=== PATIENT | female | born 1960 | race Caucasian/White ===

== ENCOUNTER 2018-02-06 14:50 | Emergency (ER) | payer OTHER ==
--- NOTE | 2018-02-06 15:25 | EKG ---
Test Date: 2018-02-06 Test Time: 15:09:16 Information Resource Consultant: TIGRE MEASUREMENT RESULTS: Intervals: Rate: 70 MS: 140 QRSD: 84 QT: 380 QTc: 410 Dumas: P: 51 MS: 140 QRS: 56 T: 57 INTERPRETIVE STATEMENTS: Normal sinus rhythm Normal ECG Compared to ECG 01/07/2006 17:11:21 Sinus tachycardia no longer present Electronically Signed On 02-06-18 15:25:10 CDT by Howie Hodge
--- NOTE | 2018-02-06 15:27 | ER ---
Nurse's Notes [facility] Name: Shaista Awad Age: 57 yrs Sex: Female : 1960 Arrival Date: 02/06/2018 Time: 14:52 Bed Waiting Private MD: Eduardo Kapadia S Diagnosis: Presentation: 02/06 15:04 Presenting complaint: Patient states: Reports left side chest pressure for 5 days. aj Patient reports that pain improves with simethicone. Transition of care: patient was not received from another setting of care. Onset of symptoms was February 01, 2018. Risk Assessment: Do you want to hurt yourself or someone else? Patient reports no desire to harm self or others. Initial Sepsis Screen: Does the patient meet any 2 criteria? No. Patient's initial sepsis screen is negative. Does the patient have a suspected source of infection? No. Patient's initial sepsis screen is negative. Care prior to arrival: Medication(s) given: ASA, 325 mg. 15:04 Method Of Arrival: Ambulatory 15:04 Acuity: CHANI 3 aj Triage Assessment: 15:06 General: Appears in no apparent distress. uncomfortable, Behavior is cooperative, aj anxious. Pain: Complains of pain in anterior aspect of left upper chest and left breast Pain currently is 9 out of 10 on a pain scale. Neuro: Level of Consciousness is awake, alert, obeys commands, Oriented to person, place, time, situation, Appropriate for age. Cardiovascular: Reports chest pain, Capillary refill < 3 seconds in bilateral fingers Patient's skin is warm and dry. Respiratory: Airway is patent Respiratory effort is even, unlabored, Respiratory pattern is regular, symmetrical. Derm: Skin is intact, is healthy with good turgor, Skin is pink, warm \T\ dry. normal. Historical: - Allergies: 15:06 No Known Allergies; aj - Home Meds: 15:06 None [Active]; aj - PMHx: 15:06 Peptic Ulcer; aj 15:08 Bipolar disorder; Anxiety; aj - PSHx: 15:06 None; aj - Immunization history:: Adult Immunizations up to date. - Social history:: Smoking status: Patient/guardian denies using tobacco. - Ebola Screening: : Patient negative for fever greater than or equal to 101.5 degrees Fahrenheit, and additional compatible Ebola Virus Disease symptoms Patient denies exposure to infectious person Patient denies travel to an Ebola-affected area in the 21 days before illness onset No symptoms or risks identified at this time. Vital Signs: 15:06 BP 191 / 107; Pulse 86; Resp 19; Temp 97.9; Pulse Ox 99% on R/A; Weight 81.65 kg; aj Height 5 ft. 4 in. (162.56 cm); Pain 9/10; 15:06 Body Mass Index 30.90 (81.65 kg, 162.56 cm) aj ED Course: 14:52 Patient arrived in ED. sb2 14:53 Eduardo Kapadia MD is Private Physician. sb2 15:05 Triage completed. aj 15:06 Arm band placed on left wrist. Patient placed. EKG completed in triage. Results shown aj to MD. 15:26 Xiang Paige MD is Attending Physician. aj Administered Medications: No medications were administered Outcome: 15:25 Eloped from waiting room, after seeing physician Time discovered patient gone: February 062017 at 15:25 15:26 Patient left the ED. aj Signatures: Ivanna Briseno, RN RN Sandra Drew sb2
--- NOTE | 2018-02-07 15:26 | EDPHYS ---
Physician Documentation [facility] Name: Shaista Awad Age: 57 yrs Sex: Female : 1960 Arrival Date: 02/06/2018 Time: 14:52 Bed Waiting Private MD: Eduardo Kapadia S ED Physician Xiang Paige HPI: 02/06 15:35 This 57 yrs old Female presents to ER via Ambulatory with complaints of Chest snw Pain. 15:35 The patient or guardian reports chest pain that is located primarily in the anterior snw chest wall. Onset: suddenly. The pain does not radiate. Associated signs and symptoms: The patient has no apparent associated signs or symptoms. The chest pain is described as sharp. Duration: The patient or guardian reports multiple episodes. Modifying factors: The symptoms are alleviated by nothing. Severity of pain: At its worst the pain was moderate severe. It is unknown whether or not the patient has had similar symptoms in the past. The patient has not recently seen a physician. discussed with pt that current EKG was normal, will evaluate fully when room available. Notified that orders have been placed and they would come from x-ray to get her in the lobby. Historical: - Allergies: 15:06 No Known Allergies; aj - Home Meds: 15:06 None [Active]; aj - PMHx: 15:06 Peptic Ulcer; aj 15:08 Bipolar disorder; Anxiety; aj - PSHx: 15:06 None; aj - Immunization history:: Adult Immunizations up to date. - Social history:: Smoking status: Patient/guardian denies using tobacco. - Ebola Screening: : Patient negative for fever greater than or equal to 101.5 degrees Fahrenheit, and additional compatible Ebola Virus Disease symptoms Patient denies exposure to infectious person Patient denies travel to an Ebola-affected area in the 21 days before illness onset No symptoms or risks identified at this time. ROS: 15:31 Eyes: Negative for injury, pain, redness, and discharge, ENT: Negative for injury, snw pain, and discharge, Neck: Negative for injury, pain, and swelling, Respiratory: Negative for shortness of breath, cough, wheezing, and pleuritic chest pain, Abdomen/GI: Negative for abdominal pain, nausea, vomiting, diarrhea, and constipation, Back: Negative for injury and pain, : Negative for injury, bleeding, discharge, and swelling, MS/Extremity: Negative for injury and deformity, Skin: Negative for injury, rash, and discoloration, Neuro: Negative for headache, weakness, numbness, tingling, and seizure. 15:31 Constitutional: Positive for body aches, malaise. 15:31 Cardiovascular: Positive for chest pain. Exam: 15:31 Head/Face: Normocephalic, atraumatic. Eyes: Pupils equal round and reactive to light, snw extra-ocular motions intact. Lids and lashes normal. Conjunctiva and sclera are non-icteric and not injected. Cornea within normal limits. Periorbital areas with no swelling, redness, or edema. ENT: Nares patent. No nasal discharge, no septal abnormalities noted. Tympanic membranes are normal and external auditory canals are clear. Oropharynx with no redness, swelling, or masses, exudates, or evidence of obstruction, uvula midline. Mucous membranes moist. Neck: Trachea midline, no thyromegaly or masses palpated, and no cervical lymphadenopathy. Supple, full range of motion without nuchal rigidity, or vertebral point tenderness. No Meningismus. Chest/axilla: Normal chest wall appearance and motion. Nontender with no deformity. No lesions are appreciated. Cardiovascular: Regular rate and rhythm with a normal S1 and S2. No gallops, murmurs, or rubs. Normal PMI, no JVD. No pulse deficits. Respiratory: Lungs have equal breath sounds bilaterally, clear to auscultation and percussion. No rales, rhonchi or wheezes noted. No increased work of breathing, no retractions or nasal flaring. Abdomen/GI: Soft, non-tender, with normal bowel sounds. No distension or tympany. No guarding or rebound. No evidence of tenderness throughout. Back: No spinal tenderness. No costovertebral tenderness. Full range of motion. Skin: Warm, dry with normal turgor. Normal color with no rashes, no lesions, and no evidence of cellulitis. MS/ Extremity: Pulses equal, no cyanosis. Neurovascular intact. Full, normal range of motion. Neuro: Awake and alert, GCS 15, oriented to person, place, time, and situation. Cranial nerves II-XII grossly intact. Motor strength 5/5 in all extremities. Sensory grossly intact. Cerebellar exam normal. Normal gait. 15:31 Constitutional: The patient appears agitated, anxious, unkempt. Vital Signs: 15:06 BP 191 / 107; Pulse 86; Resp 19; Temp 97.9; Pulse Ox 99% on R/A; Weight 81.65 kg; aj Height 5 ft. 4 in. (162.56 cm); Pain 9/10; 15:06 Body Mass Index 30.90 (81.65 kg, 162.56 cm) MDM: 15:37 Data reviewed: vital signs, nurses notes. ED course: pt taken from triage to the [facility] and left post 5 min wait without explanation. 15:38 Patient medically screened. [facility] 02/06 15:10 Order name: IV Saline Lock 02/06 15:10 Order name: Labs collected and sent 02/06 15:10 Order name: Urine Dipstick-Ancillary (obtain specimen) 02/06 15:10 Order name: EKG; Complete Time: 15:10 Administered Medications: No medications were administered Disposition: 16:16 Co-signature as Attending Physician, Xiang Paige MD I agree with the assessment and [facility] plan of care. Disposition: 02/06/18 15:26 Patient left the facility after being seen by provider. - Patient left due to unknown. Signatures: Dispatcher [employer] Ivanna Golden, Xiang Lee RN, MD MD cha Therrien, Shelly, INTERACTIVE DIGITAL MEDIA SPECIALIST-C INTERACTIVE DIGITAL MEDIA SPECIALIST-Csnw
== END 2018-02-06 15:26 | disposition left against medical advice (07) ==
LOC: ER 14:50
DX: R07.89 Other chest pain (principal)
CPT/HCPCS: 93005; 99281

== ENCOUNTER 2019-02-24 15:02 | Emergency (ER) | payer OTHER ==
--- NOTE | 2019-02-24 16:07 | ER ---
Nurse's Notes [facility] Name: Shaista Awad Age: 58 yrs Sex: Female : 1960 Arrival Date: 02/24/2019 Time: 15:05 Bed 18 Private MD: Diagnosis: Local infection of the skin and subcutaneous tissue, unspecified-right wrist Presentation: 02/24 15:17 Presenting complaint: Patient states: about 2 weeks ago i noticed the abscess on my tw2 RIGHT wrist from injecting meth, i am an addict, i have also lost more than 30 pounds since july. Transition of care: patient was not received from another setting of care. Onset of symptoms was February 24, 2019. Risk Assessment: Do you want to hurt yourself or someone else? Patient reports no desire to harm self or others. Initial Sepsis Screen: Does the patient meet any 2 criteria? No. Patient's initial sepsis screen is negative. Does the patient have a suspected source of infection? No. Patient's initial sepsis screen is negative. Care prior to arrival: None. 15:17 Method Of Arrival: Ambulatory tw2 15:17 Acuity: CHANI 3 tw2 Triage Assessment: 15:21 General: Appears in no apparent distress. Behavior is cooperative, appropriate for age. tw2 Pain: Complains of pain in right wrist. 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 - Social history:: Smoking status: Patient/guardian denies using tobacco, Patient uses street drugs, Methamphetamine (Meth). - Ebola Screening: : Patient denies travel to an Ebola-affected area in the 21 days before illness onset. Screenin:22 Abuse screen: Denies threats or abuse. Nutritional screening: No deficits noted. tw2 Tuberculosis screening: No symptoms or risk factors identified. Fall Risk None identified. Assessment: 15:30 General: Appears comfortable, Behavior is calm, cooperative. Pain: Denies pain. Neuro: aa5 Level of Consciousness is awake, alert, obeys commands, Oriented to person, place, time, situation. Cardiovascular: Heart tones S1 S2 present Rhythm is regular. Respiratory: Airway is patent Respiratory effort is even, unlabored, Respiratory pattern is regular, symmetrical. GI: Abdomen is round non-distended, Bowel sounds present X 4 quads. Abd is soft and non tender X 4 quads. Reports weight loss of 30lbs since July 2018. Patient currently denies diarrhea, intolerance of fluids, intolerance of food, nausea, vomiting, denies decreased appetite. : No signs and/or symptoms were reported regarding the genitourinary system. EENT: No signs and/or symptoms were reported regarding the EENT system. Derm: Skin is pink, warm \\T\\ dry. 2 Quater-sized swollen areas noted to right wrist, no drainage noted. 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 Pt denies suicidal/homicidal thoughts, pt denies feeling unsafe at home. Musculoskeletal: Range of motion: intact in all extremities. 16:15 Reassessment: Patient is alert, oriented x 3, equal unlabored respirations, skin aa5 warm/dry/pink. Patient denies pain at this time. Vital Signs: 15:21 BP 131 / 75; Pulse 111; Resp 17; Temp 98(TE); Pulse Ox 95% on R/A; Weight 60.51 kg (R); tw2 Height 5 ft. 4 in. (162.56 cm); Pain 5/10; 15:21 Body Mass Index 22.90 (60.51 kg, 162.56 cm) tw2 ED Course: 15:05 Patient arrived in ED. as 15:17 Alba Marcos, MIN is Primary Nurse. aa5 15:17 Xiang Maddox PA is PHCP. cp 15:18 Bong Isbell MD is Attending Physician. cp 15:18 Triage completed. tw2 15:18 Arm band placed on. tw2 15:22 Bed in low position. Call light in reach. Adult w/ patient. tw2 16:01 XRAY Forearm RIGHT In Process Unspecified. EDMS 16:10 No provider procedures requiring assistance completed. Patient did not have IV access aa5 during this emergency room visit. Administered Medications: No medications were administered Outcome: 16:07 Discharge ordered by . narciso 16:15 Discharged to home ambulatory, with family. aa5 16:15 Condition: stable 16:15 Discharge instructions given to patient, Instructed on discharge instructions, follow up and referral plans. medication usage, Demonstrated understanding of instructions, follow-up care, medications, Prescriptions given X 2. 16:16 Patient left the ED. aa5 Signatures: Dispatcher [employer] EDBela Elkins Audri, RN RN aa5 Xiang Maddox, KALEE PA Demi Zuluaga, RN RN tw2
--- NOTE | 2019-02-24 16:08 | EDPHYS ---
Physician Documentation [facility] Name: Shaista Awad Age: 58 yrs Sex: Female : 1960 Arrival Date: 02/24/2019 Time: 15:05 Bed 18 Private MD: ED Physician Bong Isbell HPI: 02/24 15:32 This 58 yrs old Female presents to ER via Ambulatory with complaints of cp Abscess. 15:32 the patient presents with a swollen area of the right wrist. Description: swollen. cp Onset: The symptoms/episode began/occurred 2 week(s) ago. Possible cause(s): injection of meth. Associated signs and symptoms: Pertinent negatives: fever, shortness of breath. Severity of symptoms: in the emergency department the symptoms are unchanged, despite home interventions. 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 - Social history:: Smoking status: Patient/guardian denies using tobacco, Patient uses street drugs, Methamphetamine (Meth). - Ebola Screening: : Patient denies travel to an Ebola-affected area in the 21 days before illness onset. ROS: 15:34 Constitutional: Positive for weight loss, Negative for body aches, chills, fever. cp 15:34 Cardiovascular: Negative for chest pain. 15:34 Respiratory: Negative for cough, shortness of breath, wheezing. 15:34 Abdomen/GI: Negative for abdominal pain, nausea, vomiting, and diarrhea. 15:34 Skin: Positive for swelling, of the left wrist. 15:34 All other systems are negative. Exam: 15:40 Constitutional: The patient appears in no acute distress, alert, awake, non-toxic, well cp developed, well nourished. 15:40 Head/Face: Normocephalic, atraumatic. cp 15:40 Chest/axilla: Inspection: normal. 15:40 Cardiovascular: Rate: tachycardic. 15:40 Skin: Appearance: normal except for affected area, mild swelling, tenderness, mild erythema at injection sites of right wrist, abscess, not appreciated. Vital Signs: 15:21 BP 131 / 75; Pulse 111; Resp 17; Temp 98(TE); Pulse Ox 95% on R/A; Weight 60.51 kg (R); tw2 Height 5 ft. 4 in. (162.56 cm); Pain 5/10; 15:21 Body Mass Index 22.90 (60.51 kg, 162.56 cm) tw2 MDM: 15:20 Patient medically screened. cp 16:00 Test interpretation: by ED physician or midlevel provider: xrays of right forearm cp negative for foreign body. 16:00 Differential diagnosis: abscess, cellulitis, retained foreign body. cp 16:06 Data reviewed: vital signs, nurses notes, and as a result, I will discharge patient. cp 16:06 Counseling: I had a detailed discussion with the patient and/or guardian regarding: the cp historical points, exam findings, and any diagnostic results supporting the discharge/admit diagnosis, radiology results, to return to the emergency department if symptoms worsen or persist or if there are any questions or concerns that arise at home. 02/24 15:37 Order name: XRAY Forearm RIGHT cp Administered Medications: No medications were administered Disposition: 16:24 Co-signature as Attending Physician, Bong Isbell MD. Chart complete. rn Disposition: 02/24/19 16:07 Discharged to Home. Impression: Local infection of the skin and subcutaneous tissue, unspecified - right wrist. - Condition is Stable. - Discharge Instructions: Staphylococcal Infection. - Prescriptions for Bactroban 2 % Topical Ointment - Apply to affected area 1 application by TOPICAL route every 12 hours; 30 gram. Keflex 500 mg Oral Capsule - take 1 capsule by ORAL route every 8 hours for 10 days; 30 capsule. - Medication Reconciliation Form, Thank You Letter, Antibiotic Education, Prescription Opioid Use form. - Follow up: Private Physician; When: 2 - 3 days; Reason: Worsening of condition. - Problem is new. - Symptoms are unchanged. Signatures: Dispatcher [employer] EDMS Bong Isbell MD MD rn Calderon, Audri, RN RN aa5 Xiang Maddox PA PA cp Wise, Tara, RN RN tw2 Corrections: (The following items were deleted from the chart) 16:16 16:07 02/24/2019 16:07 Discharged to Home. Impression: Local infection of the skin and aa5 subcutaneous tissue, unspecified - right wrist. Condition is Stable. Forms are Medication Reconciliation Form, Thank You Letter, Antibiotic Education, Prescription Opioid Use. Follow up: Private Physician; When: 2 - 3 days; Reason: Worsening of condition. Problem is new. Symptoms are unchanged. cp
--- NOTE | 2019-02-24 16:44 | RAD REPORT ---
EXAM DESCRIPTION: RAD - Forearm Right - 02/24/2019 4:01 pm CLINICAL HISTORY: wrist swelling COMPARISON: <Comparisons> FINDINGS: Soft tissue swelling is seen along the dorsal aspect of the wrist. No acute fracture or di slocation.
== END 2019-02-24 16:16 | disposition home or self-care (01) ==
LOC: ER 15:02
DX: L08.9 Local infection of the skin and subcutaneous tissue, unspecified (principal); F31.9 Bipolar disorder, unspecified; F41.9 Anxiety disorder, unspecified
CPT/HCPCS: 99283

== ENCOUNTER 2019-03-11 01:40 | Emergency (ER) | payer OTHER ==
[2019-03-11] MEDS ORDERED: LORazepam 2 MG/ML VIAL ONE (02:18)
[2019-03-11] MEDS ORDERED: NA CHLORIDE 0.9% 1,000 ML ONE (02:19)
[2019-03-11 02:25] LABS: Basophils % 1.1 % (0-1.3); Hematocrit 40.5 % (36.0-45.0); Lymphocytes % 44.6 % (15.3-44.8); MPV 9.9 fL (7.6-11.3); RBC Red Blood Cell Count 4.42 M/uL (3.86-4.86)
[2019-03-11 02:35] LABS: Protime INR 0.97
[2019-03-11 02:57] LABS: ALT/SGPT 21 U/L (12-78); AST/SGOT 17 U/L (15-37); Albumin 3.7 g/dL (3.4-5.0); Alkaline Phosphatase 101 U/L (45-117); BUN Blood Urea Nitrogen 21 mg/dL (7-18); Bicarbonate 26 mmol/L (21-32); Bilirubin Direct < 0.1 mg/dL (0-0.2); Bilirubin Total 0.3 mg/dL (0.2-1.0); Glucose Level 98 mg/dL (74-106); Potassium 3.4 mmol/L (3.5-5.1); Protein, Total 7.2 g/dL (6.4-8.2); Sodium Level 144 mmol/L (136-145)
--- NOTE | 2019-03-11 06:28 | EKG ---
Test Date: 2019-03-11 Test Time: 02:05:26 Terrazzo Finisher: MAGRAUX MEASUREMENT RESULTS: Intervals: Rate: 90 WI: 116 QRSD: 88 QT: 354 QTc: 433 Lynn: P: 61 WI: 116 QRS: 52 T: 64 INTERPRETIVE STATEMENTS: Sinus rhythm with premature atrial complexes Otherwise normal ECG Compared to ECG 02/06/2018 15:09:16 Atrial premature complex(es) now present Electronically Signed On 03-11-19 06:27:24 CDT by Howie Hodge
--- NOTE | 2019-03-11 06:32 | ER ---
Nurse's Notes [facility] Name: Shaista Awad Age: 58 yrs Sex: Female : 1960 Arrival Date: 03/11/2019 Time: 01:45 Bed 7 Private MD: Diagnosis: Adverse effects of chronic methamphetamine usage;Bipolar disorder Presentation: 03/11 01:38 Acuity: CHANI 2 fc 01:38 Presenting complaint: EMS states: that pt was having withdrawls from Meth (last used fc over 24hrs) and was arguing with sig. other about him having an affair so she stated that she was suicidal. Transition of care: patient was not received from another setting of care. Onset of symptoms was March 11, 2019. Risk Assessment: Do you want to hurt yourself or someone else? Patient reports desire/thoughts of hurting themselves or someone else. Provider notified. Initial Sepsis Screen: Does the patient meet any 2 criteria? HR > 90 bpm. Yes Does the patient have a suspected source of infection? No. Patient's initial sepsis screen is negative. Care prior to arrival: None. 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 - Social history:: Smoking status: Patient uses tobacco products, denies chronic smoking, but will smoke occasionally, Patient uses street drugs, marijuana, Methamphetamine (Meth) Patient/guardian denies using alcohol. - Ebola Screening: : Patient negative for fever greater than or equal to 101.5 degrees Fahrenheit, and additional compatible Ebola Virus Disease symptoms Patient denies exposure to infectious person Patient denies travel to an Ebola-affected area in the 21 days before illness onset. - Family history:: not pertinent. - Hospitalizations: : No recent hospitalization is reported. Screenin:38 Abuse screen: Denies threats or abuse. Nutritional screening: No deficits noted. fc Tuberculosis screening: No symptoms or risk factors identified. Fall Risk None identified. 01:47 Abuse screen: Denies threats or abuse. Nutritional screening: No deficits noted. bb Tuberculosis screening: No symptoms or risk factors identified. Fall Risk None identified. Assessment: 01:47 General: Appears distressed, slender, unkempt, Behavior is cooperative, agitated. bb Neuro: Level of Consciousness is awake, alert, obeys commands, Oriented to person, place, time, situation. Cardiovascular: Heart tones S1 S2 present Capillary refill < 3 seconds Patient's skin is warm and dry. Pulses are all present. Edema is absent. Respiratory: Airway is patent Respiratory effort is even, unlabored, Respiratory pattern is regular, Breath sounds are clear bilaterally. GI: Abdomen is non-distended, Bowel sounds present X 4 quads. Abd is soft and non tender X 4 quads. Derm: Skin is pink, warm \T\ dry. Musculoskeletal: Circulation, motion, and sensation intact. 03:03 Reassessment: pt appears to be sleeping, eyes closed, resp unlabored, will continue to bb monitor sitter at bedside. 03:50 Reassessment: Patient appears in no apparent distress at this time. on semi Subramanian rr5 position, breathing spontaneously at room maintaining Oxygen saturation 99-100%. 05:50 Reassessment: Patient appears in no apparent distress at this time. Patient is alert, rr5 oriented x 3, equal unlabored respirations, skin warm/dry/pink. [facility] staff at bedside assessing the patient. Pain: Denies pain. 06:50 Reassessment: Patient appears in no apparent distress at this time. Patient is alert, rr5 oriented x 3, equal unlabored respirations, skin warm/dry/pink. discharge instruction given and explained without complaints made. Patient denies pain at this time. Patient states feeling better. Patient states symptoms have improved. Psych: 01:49 Subjective: Patient's mood is sad, angry, hopeless. Subjective: Having thoughts of bb suicide. Plan for suicide is to cut herself. Objective: Patient is cooperative, Speech is rambling, pressured. Interventions: Removed personal items and placed in bag. Patient placed in hospital gown. Belonging list filled out. Suicide Risk Assessment: Sad Person Scale: Sex of patient: Female: Score 0 points. Age of patient: Score 0 point if patient falls outside of specified age parameters. Depression: Score 1 point if signs of depression are present. Substance Abuse: Score 1 point if patient abuses alcohol or drugs. Rational Thinking: Score 1 point if patient is lacking rational thinking. Organized Plan: Score 1 point if patient had a plan in place. TOTAL POINTS: If total points are 3-4, proposed clinical action is close follow-up/consider hospitalization. Safety Checks: Personal items have been removed. Door is open. No visitors are present at this time. Patient uses methamphetamines daily. 01:49 Commitment: Patient will be a voluntary commitment. rr5 Vital Signs: 01:38 BP 184 / 101; Pulse 115; Resp 20; Temp 98.2(O); Pulse Ox 95% on R/A; Weight 58.97 kg fc (R); Height 5 ft. 4 in. (162.56 cm) (R); Pain 0/10; 03:04 Pulse 71; Resp 16 S; Pulse Ox 95% on R/A; Pain 0/10; bb 03:50 Pulse 75; Resp 17; Pulse Ox 99% on R/A; rr5 06:20 BP 131 / 90; Pulse 80; Resp 16; Temp 97.3; Pulse Ox 99% on R/A; Pain 0/10; rr5 01:38 Body Mass Index 22.31 (58.97 kg, 162.56 cm) ED Course: 01:38 Arm band placed on Patient placed in an exam room, on a stretcher. fc 01:38 Patient has correct armband on for positive identification. Placed in gown. Bed in low fc position. Call light in reach. 01:43 Bong Isbell MD is Attending Physician. rn 01:45 Patient arrived in ED. ds1 01:47 Abigail Finley, RN is Primary Nurse. bb 01:47 Triage completed. fc 01:47 Patient has correct armband on for positive identification. Placed in gown. Bed in low bb position. Side rails up X2. suicidal precautions implemented. Pulse ox on. NIBP on. Warm blanket given. 01:51 Safety checks: Items removed: yes. Door open/sign placed on door: yes. Family/friend oe present: no. Sitter present: Yes. 02:10 Initial lab(s) drawn, by me, sent to lab. EKG done, by ED staff, reviewed by Bong Isbell MD. Inserted saline lock: 20 gauge in left antecubital area, using aseptic technique. Blood collected. 02:15 Safety checks: Items removed: yes. Door open/sign placed on door: yes. Family/friend oe present: no. Sitter present: Yes. 02:30 Safety checks: Items removed: yes. Door open/sign placed on door: yes. Family/friend oe present: no. Sitter present: Yes. 02:45 Safety checks: Items removed: yes. Door open/sign placed on door: yes. Family/friend oe present: no. Sitter present: Yes. 03:00 Safety checks: Items removed: yes. Door open/sign placed on door: yes. Family/friend oe present: no. Sitter present: Yes. 03:15 Safety checks: Items removed: yes. Door open/sign placed on door: yes. Family/friend oe present: no. Sitter present: Yes. 03:30 Safety checks: Items removed: yes. Door open/sign placed on door: yes. Family/friend oe present: no. Sitter present: Yes. 03:38 Diet: Patient given water. oe 03:45 Safety checks: Items removed: yes. Door open/sign placed on door: yes. Family/friend oe present: no. Sitter present: Yes. 04:00 Safety checks: Items removed: yes. Door open/sign placed on door: yes. Family/friend oe present: no. Sitter present: Yes. 04:15 Safety checks: Items removed: yes. Door open/sign placed on door: yes. Family/friend oe present: no. Sitter present: Yes. 04:30 Safety checks: Items removed: yes. Door open/sign placed on door: yes. Family/friend oe present: no. Sitter present: Yes. 04:45 Safety checks: Items removed: yes. Door open/sign placed on door: yes. Family/friend oe present: no. Sitter present: Yes. 05:00 Safety checks: Items removed: yes. Door open/sign placed on door: yes. Family/friend oe present: no. Sitter present: Yes. 05:15 Safety checks: Items removed: yes. Door open/sign placed on door: yes. Family/friend oe present: no. Sitter present: Yes. 05:30 Safety checks: Items removed: yes. Door open/sign placed on door: yes. Family/friend oe present: no. Sitter present: Yes. 05:45 Safety checks: Items removed: yes. Door open/sign placed on door: yes. Family/friend oe present: no. Sitter present: Yes. 06:00 Safety checks: Items removed: yes. Door open/sign placed on door: yes. Family/friend oe present: no. Sitter present: Yes. 06:30 Safety checks: Items removed: yes. Door open/sign placed on door: yes. Family/friend oe present: no. Sitter present: Yes. 06:31 Safety checks: Items removed: yes. Door open/sign placed on door: yes. Family/friend oe present: no. Sitter present: Yes. 06:52 No provider procedures requiring assistance completed. IV discontinued, intact, rr5 bleeding controlled, No redness/swelling at site. Pressure dressing applied. Administered Medications: 02:16 Drug: NS 0.9% 1000 ml Route: IV; Rate: 1000 ml; Site: left antecubital; bb 03:20 Follow up: Response: No adverse reaction; IV Status: Completed infusion; IV Intake: rr5 1000ml 02:16 Drug: Ativan 1 mg Route: IVP; Site: left antecubital; bb 03:20 Follow up: Response: No adverse reaction rr5 Intake: 03:20 IV: 1000ml; Total: 1000ml. rr5 Outcome: 06:31 Discharge ordered by . rn 06:52 Discharged to home ambulatory. rr5 06:52 Condition: stable 06:52 Discharge instructions given to patient, Instructed on discharge instructions, follow up and referral plans. Demonstrated understanding of instructions, follow-up care. 06:54 Patient left the ED. rr5 Signatures: Meghna Bond RN Kellen Navas ds1 Abigail Finley RN RN bb Nieto, Roman, MD MD rn Espinosa, Orlando oe Roque, Raymond, RN RN rr5 Corrections: (The following items were deleted from the chart) 02:27 02:09 Safety checks: Items removed: yes. Door open/sign placed on door: yes. oe Family/friend present: no. Sitter present: Yes. oe 06:30 05:46 Social work oe oe 06:31 06:29 Safety checks: Items removed: yes. Door open/sign placed on door: yes. oe Family/friend present: no. Sitter present: Yes. oe
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
[2019-03-11 06:41] LABS: Urine Blood NEGATIVE (NEG); Urine Glucose NEGATIVE (NEG); Urine Protein NEGATIVE (NEG); Urine Specific Gravity >1.030 (1.005-1.030)
[2019-03-11 06:42] LABS: Barbiturates NEGATIVE (NEGATIVE); Benzodiazepines NEGATIVE (NEGATIVE); Cocaine NEGATIVE (NEGATIVE); METHAMPHETAM POSITIVE (NEGATIVE); Methadone NEGATIVE (NEGATIVE); Opiates NEGATIVE (NEGATIVE); Phencyclidine NEGATIVE (NEGATIVE); THC Cannibis POSITIVE (NEGATIVE)
== END 2019-03-11 06:54 | disposition home or self-care (01) ==
LOC: ER 01:40
DX: T43.625A Adverse effect of amphetamines, initial encounter (principal); F31.9 Bipolar disorder, unspecified; Z72.0 Tobacco use
CPT/HCPCS: 36415; 80048; 80076; 80307; 80320; 80329; 81003; 85025; 85610; 85730; 93005; 96361; 96374; 99285; J7030

== ENCOUNTER 2019-04-08 22:20 | Emergency (ER) | payer OTHER ==
[2019-04-08] MEDS ORDERED: MORPHINE 2 MG/ML SYR ONE (23:26)
[2019-04-08] MEDS ORDERED: NA CHLORIDE 0.9% 1,000 ML ONE (23:26)
[2019-04-08] MEDS ORDERED: ONDANSETRON 4 MG/2 ML VIAL ONE (23:26)
[2019-04-08 23:33] LABS: Absolute Lymphocytes (CBC) 1.1 K/uL (0.7-4.9); Basophils % 0.5 % (0-1.3); Hematocrit 47.2 % (36.0-45.0); Lymphocytes % 28.2 % (15.3-44.8); MPV 9.4 fL (7.6-11.3); RBC Red Blood Cell Count 5.19 M/uL (3.86-4.86)
[2019-04-08 23:37] LABS: Protime INR 0.98
[2019-04-08 23:42] LABS: Barbiturates NEGATIVE (NEGATIVE); Benzodiazepines NEGATIVE (NEGATIVE); Cocaine NEGATIVE (NEGATIVE); METHAMPHETAM POSITIVE (NEGATIVE); Methadone NEGATIVE (NEGATIVE); Opiates NEGATIVE (NEGATIVE); Phencyclidine NEGATIVE (NEGATIVE); THC Cannibis POSITIVE (NEGATIVE)
[2019-04-08 23:49] LABS: Urine Blood TRACE (NEG); Urine Glucose NEGATIVE (NEG); Urine Protein 1+ (NEG); Urine Specific Gravity >1.030 (1.005-1.030); Urine pH 5.5 (5.0-7.0)
[2019-04-08 23:49] LABS: Albumin 3.6 g/dL (3.4-5.0); Bilirubin Direct 0.1 mg/dL (0-0.2); Bilirubin Total 0.3 mg/dL (0.2-1.0); Potassium 3.4 mmol/L (3.5-5.1); Protein, Total 8.1 g/dL (6.4-8.2)
[2019-04-09] MEDS ORDERED: POTASSIUM CL SA 10 MEQ TAB PO ONE (00:16)
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
--- NOTE | 2019-04-09 00:24 | EDPHYS ---
Physician Documentation [facility] Name: Shaista Awad Age: 58 yrs Sex: Female : 1960 Arrival Date: 04/08/2019 Time: 22:28 Bed 25 Private MD: ED Physician Jarod Pruett HPI: 04/08 23:40 This 58 yrs old Female presents to ER via EMS with unknown complaint. pkl 23:40 The patient presents with pain that is acute, left upper back. Onset: The pkl symptoms/episode began/occurred this morning. The pain does not radiate. Historical: - Allergies: 22:34 No Known Allergies; wh - Home Meds: 22:34 Buspirone Oral [Active]; Depakote Oral [Active]; Suboxone sublingual [Active]; wh - PMHx: 22:34 Anxiety; Bipolar disorder; drug abuse; peptic ulcer; wh - Immunization history:: Adult Immunizations unknown. - Social history:: Smoking status: Patient uses tobacco products, Patient uses street drugs, Methamphetamine (Meth) Last Use was yesterday. - Ebola Screening: : Patient negative for fever greater than or equal to 101.5 degrees Fahrenheit, and additional compatible Ebola Virus Disease symptoms Patient denies exposure to infectious person. ROS: 23:40 Eyes: Negative for injury, pain, redness, and discharge, ENT: Negative for injury, pkl pain, and discharge, Neck: Negative for injury, pain, and swelling, Cardiovascular: Negative for chest pain, palpitations, and edema, Respiratory: Negative for shortness of breath, cough, wheezing, and pleuritic chest pain, Abdomen/GI: Negative for abdominal pain, nausea, vomiting, diarrhea, and constipation. 23:40 Back: Positive for pain at rest, of the left upper back. 23:40 : Negative for urinary symptoms. 23:40 MS/extremity: Negative for acute changes. 23:40 Skin: Negative for rash. 23:40 Neuro: Negative for altered mental status. Exam: 23:40 Head/Face: Normocephalic, atraumatic. Eyes: Pupils equal round and reactive to light, pkl extra-ocular motions intact. Lids and lashes normal. Conjunctiva and sclera are non-icteric and not injected. Cornea within normal limits. Periorbital areas with no swelling, redness, or edema. ENT: Nares patent. No nasal discharge, no septal abnormalities noted. Tympanic membranes are normal and external auditory canals are clear. Oropharynx with no redness, swelling, or masses, exudates, or evidence of obstruction, uvula midline. Mucous membranes moist. Neck: Trachea midline, no thyromegaly or masses palpated, and no cervical lymphadenopathy. Supple, full range of motion without nuchal rigidity, or vertebral point tenderness. No Meningismus. Chest/axilla: Normal chest wall appearance and motion. Nontender with no deformity. No lesions are appreciated. Cardiovascular: Regular rate and rhythm with a normal S1 and S2. No gallops, murmurs, or rubs. Normal PMI, no JVD. No pulse deficits. Respiratory: Lungs have equal breath sounds bilaterally, clear to auscultation and percussion. No rales, rhonchi or wheezes noted. No increased work of breathing, no retractions or nasal flaring. Abdomen/GI: Soft, non-tender, with normal bowel sounds. No distension or tympany. No guarding or rebound. No evidence of tenderness throughout. Back: No spinal tenderness. No costovertebral tenderness. Full range of motion. Skin: Warm, dry with normal turgor. Normal color with no rashes, no lesions, and no evidence of cellulitis. MS/ Extremity: Pulses equal, no cyanosis. Neurovascular intact. Full, normal range of motion. Neuro: Awake and alert, GCS 15, oriented to person, place, time, and situation. Cranial nerves II-XII grossly intact. Motor strength 5/5 in all extremities. Sensory grossly intact. Cerebellar exam normal. Normal gait. Vital Signs: 22:35 BP 140 / 89; Pulse 123; Resp 20; Temp 97.3; Pulse Ox 98% on R/A; 22:53 Weight 50.94 kg; Height 5 ft. 4 in. (162.56 cm); 04/09 00:24 BP 132 / 90; Pulse 113; Resp 18; Pulse Ox 97% on R/A; 04/08 22:53 Body Mass Index 19.28 (50.94 kg, 162.56 cm) MDM: 04/08 22:30 Patient medically screened. pkl 04/09 00:15 Data reviewed: vital signs, nurses notes, lab test result(s), EKG, radiologic studies, pkl plain films. 04/08 22:51 Order name: Acetaminophen; Complete Time: 00:08 pkl 04/08 22:51 Order name: Basic Metabolic Panel; Complete Time: 00:08 pkl 04/08 22:51 Order name: CBC with Diff; Complete Time: 00:08 pkl 04/08 22:51 Order name: ETOH Level; Complete Time: 00:08 pkl 04/08 22:51 Order name: Hepatic Function; Complete Time: 00:08 pkl 04/08 22:51 Order name: PT-INR; Complete Time: 00:08 pkl 04/08 22:51 Order name: Ptt, Activated; Complete Time: 00:08 pkl 04/08 22:51 Order name: Salicylate; Complete Time: 00:08 pkl 04/08 22:51 Order name: Urine Drug Screen; Complete Time: 00:08 pkl 04/08 22:51 Order name: XRAY CXR (1 view) pkl 04/08 23:30 Order name: Urine Dipstick--Ancillary (enter results); Complete Time: 00:08 mw2 04/08 23:30 Order name: Urine --Ancillary (enter results); Complete Time: 00:08 mw2 04/08 22:51 Order name: EKG - Nurse/Tech; Complete Time: 23:23 pkl 04/08 22:51 Order name: IV Saline Lock; Complete Time: 23:23 pkl 04/08 22:51 Order name: Labs collected and sent; Complete Time: 23:23 pkl 04/08 22:51 Order name: Urine Dipstick-Ancillary (obtain specimen); Complete Time: 23:23 pkl Administered Medications: 04/08 23:41 Drug: morphine 2 mg Route: IVP; Site: left antecubital; 04/09 00:35 Follow up: Response: No adverse reaction; Pain is decreased 04/08 23:41 Drug: Zofran 4 mg Route: IVP; Site: left antecubital; 04/09 00:35 Follow up: Response: No adverse reaction 04/08 23:42 Drug: NS 0.9% 1000 ml Route: IV; Rate: 1000 ml; Site: left antecubital; 04/09 00:36 Follow up: Response: No adverse reaction; IV Status: Completed infusion 00:19 CANCELLED (Duplicate Order): K-Dur 20 mEq PO once 00:20 Drug: Potassium Chloride 20 mEq Route: PO; 00:35 Follow up: Response: No adverse reaction Disposition: 04/09/19 00:16 Discharged to Home. Impression: Pain left upper back. Substance abuse. - Condition is Stable. - Medication Reconciliation Form, Thank You Letter, Antibiotic Education, Prescription Opioid Use form. - Follow up: Private Physician; When: 2 - 3 days; Reason: Re-evaluation by your physician. - Problem is new. - Symptoms have improved. Signatures: Dispatcher [employer] EDMS Jarod Pruett MD MD pkl Pola Yoon Corrections: (The following items were deleted from the chart) 00:19 00:09 K-Dur 20 mEq PO once ordered. pkl 00:38 00:16 04/09/2019 00:16 Discharged to Home. Impression: Pain left upper back. Substance wh abuse. Condition is Stable. Forms are Medication Reconciliation Form, Thank You Letter, Antibiotic Education, Prescription Opioid Use. Follow up: Private Physician; When: 2 - 3 days; Reason: Re-evaluation by your physician. Problem is new. Symptoms have improved. pkl
--- NOTE | 2019-04-09 08:19 | RAD REPORT ---
EXAM DESCRIPTION: RAD - Chest Single View - 04/08/2019 11:23 pm CLINICAL HISTORY: CHEST PAIN Chest pain. COMPARISON: No comparisons FINDINGS: Portable technique limits examination quality. The lungs are grossly clear. The heart is normal in size. No displaced fractures. IMPRESSION: No acute intrathoracic process suspected.
--- NOTE | 2019-04-10 11:24 | EKG ---
Test Date: 2019-04-08 Test Time: 23:03:35 Store Host: YAMILE MEASUREMENT RESULTS: Intervals: Rate: 123 [place]: 160 QRSD: 74 QT: 326 QTc: 466 [place]: P: 75 WA: 160 QRS: 82 T: 24 INTERPRETIVE STATEMENTS: Sinus tachycardia Nonspecific ST abnormality Abnormal ECG Compared to ECG 03/11/2019 02:05:26 ST (T wave) deviation now present Sinus rhythm no longer present Atrial premature complex(es) no longer present Electronically Signed On 04-10-19 11:19:50 CDT by Crow Philippe
== END 2019-04-09 00:38 | disposition home or self-care (01) ==
LOC: ER 22:20
DX: F19.10 Other psychoactive substance abuse, uncomplicated (principal); F41.9 Anxiety disorder, unspecified; F31.9 Bipolar disorder, unspecified; Z72.0 Tobacco use
CPT/HCPCS: 96361; 93005; 85025; 80048; 36415; 80320; 80329 ×2; 81025; 85610; 80076; 80307 ×8; 85730; 81003; 71045; 96375; 96374; 99284; J2270; J7030; J2405

== ENCOUNTER 2019-04-10 16:56 | Emergency (ER) | payer OTHER ==
--- OUTSIDE RECORDS SUMMARY | 2019-04-10 17:36 | XMS REPORT ---
:1960 Author Organization [facility] Address [address] [place] [address] Dr. Moura [address] [place] [address] Care Team Providers Name Role Phone Unavailable Unavailable Unavailable Problems This patient has no known problems. Allergies, Adverse Reactions, Alerts This patient has no known allergies or adverse reactions. Medications This patient has no known medications.
--- OUTSIDE RECORDS SUMMARY | 2019-04-10 17:37 | XMS REPORT | Summary of Care ---
:1960 Author Organization [facility] Address [address] [place] [address] Care Team Providers Name Role Phone Pcp, Patient Does Not Have A Primary Care Provider Reason for Referral Radiology Services (NOE) Status Reason Specialty Diagnoses / Referred By Referred To Procedures Contact Contact New Request Diagnostic Diagnoses Fatigue, unspecified type Joelle, K Radiology Procedures XR CHEST [address] [phone] Radiology Services (NOE) Status Reason Specialty Diagnoses / Referred By Referred To Procedures Contact Contact New Request Diagnostic Diagnoses Fatigue, unspecified type Joelle, K Radiology Procedures XR CHEST 1 Shannon PAC [address] [place] [phone] Reason for Visit Reason Comments Shoulder Pain left Auth/Cert Status Reason Specialty Diagnoses / Referred By Referred To Procedures Contact Contact Emergency Medicine Diagnoses SHOULDER PAIN [facility] [address] [place] [address] Encounter Details Date Type Department Care Team Description 04/09/2019 - Emergency [facility]-Emergency Joelle, K Fatigue, unspecified type ( Primary Dx); 04/10/2019 Department Shannon [facility] Drug abuse [address] [place] [address] [place] [id number] [place] [address] [place] [address] Allergies No Known Allergiesdocumented as of this encounter (statuses as of 04/10/2019) Medications Medication Sig Dispensed Refills Start Date End Date Status BUPRENORPHINE Place under the 0 Active HCL/NALOXONE HCL tongue. (SUBOXONE SL) risperiDONE (RISPERDAL) Take 2 mg by 0 Active 2 mg tablet mouth at bedtime. busPIRone (BUSPAR) 15 mg Take 15 mg by 0 Active tablet mouth 3 (three) times daily. SERTraline (ZOLOFT) 100 Take 100 mg by 0 Active mg tablet mouth daily. gabapentin (NEURONTIN) Take 600 mg by 0 Active 600 mg tablet mouth 2 (two) times daily. documented as of this encounter (statuses as of 04/10/2019) Active Problems Problem Noted Date Elevated blood pressure 05/10/2016 Family history of heart disease 05/10/2016 Hypertriglyceridemia 04/12/2016 Hepatitis C, chronic 04/09/2016 Colon polyps 04/09/2016 History of abnormal cervical Pap smear 04/09/2016 History of heroin abuse 04/09/2016 Bipolar disorder 02/07/2006 documented as of this encounter (statuses as of 04/10/2019) Resolved Problems Problem Noted Date Resolved Date Other, mixed, or unspecified nondependent drug abuse, 02/07/2006 04/09/2016 continuous documented as of this encounter (statuses as of 04/10/2019) Immunizations Name Administration Dates Next Due Influenza Virus Vaccine Quad IM Multi-dose 6+ MO 05/10/2016 Pneumococcal Polysaccharide, PPSV23 (PNEUMOVAX) 05/10/2016 documented as of this encounter Social History Tobacco Use Types Packs/Day Years Used Date Current Every Day Smoker Smokeless Tobacco: Never Used Alcohol Use Drinks/Week oz/Week Comments No 0 Standard drinks or equivalent 0.0 Quit EtOH 2 years ago Sex Assigned at Date Recorded Not on file Job Start Date Occupation Industry Not on file Not on file Not on file Travel History Travel Start Travel End No recent travel history available. documented as of this encounter Last Filed Vital Signs Vital Sign Reading Time Taken Comments Blood Pressure 120/80 04/10/2019 1:15 AM CDT Pulse 99 04/10/2019 1:15 AM CDT Temperature 36.8 C (98.2 F) 04/09/2019 9:59 PM CDT Respiratory Rate 16 04/10/2019 1:15 AM CDT Oxygen Saturation 100% 04/10/2019 1:15 AM CDT Inhaled Oxygen Concentration - - Weight 51.3 kg (113 lb) 04/09/2019 9:59 PM CDT Height - - Body Mass Index 19.7 05/10/2016 1:08 PM CDT documented in this encounter Discharge Instructions AttachmentsThe following attachments cannot be sent through Care Everywhere.Getting Help, Addiction (Luxembourger)documented in this encounter Plan of Treatment Health Maintenance Due Date Last Done Comments HEPATITIS C (HCV) SCREEN 1960 DTaP,Tdap,and Td Vaccines (1 - Tdap) 1980 PAP SMEAR 1982 MAMMOGRAM 2001 COLONOSCOPY 2011 Zoster Recombinant Vaccine (SHINGRIX) (1 of 2) 2011 LUNG CANCER SCREEN: Recommended for age 55-80 with 30 2016 + pack year history INFLUENZA VACCINE (#1) 2019 05/10/2016 PNEUMOCOCCAL 0-64 YEARS COMBINED SERIES Completed 05/10/2016 documented as of this encounter Procedures Procedure Name Priority Date/Time Associated Diagnosis Comments CBC WITH DIFFERENTIAL STAT 04/09/2019 11:30 Fatigue, unspecified Results for this PM CDT type procedure are in the results section. URINALYSIS STAT 04/09/2019 11:30 Fatigue, unspecified Results for this PM CDT type procedure are in the results section. CBC WITH DIFF Routine 04/09/2019 11:30 Fatigue, unspecified Results for this PM CDT type procedure are in the results section. COMP. METABOLIC PANEL STAT 04/09/2019 11:30 Fatigue, unspecified Results for this (17436) PM CDT type procedure are in the results section. TROPONIN I STAT 04/09/2019 11:30 Fatigue, unspecified Results for this PM CDT type procedure are in the results section. MAGNESIUM STAT 04/09/2019 11:30 Fatigue, unspecified Results for this PM CDT type procedure are in the results section. XR CHEST 1 VW NOE 04/09/2019 11:20 Fatigue, unspecified Results for this PM CDT type procedure are in the results section. EKG-12 LEAD Routine 04/09/2019 11:01 PM CDT NOTICE OF PRIVACY Routine 04/09/2019 9:43 PRACTICES PM CDT CONSENT/REFUSAL FOR Routine 04/09/2019 9:43 DIAGNOSIS AND PM CDT TREATMENT documented in this encounter Results CBC WITH DIFFERENTIAL (04/09/2019 11:30 PM CDT) WBC 5.31 4.30 - 11.10 [facility] 10*3/L [facility] RBC 5.02 3.93 - 5.25 [facility] 10*6/L [facility] HGB 15.1 (H) 11.6 - 15.0 [facility] g/dL [facility] HCT 45.7 (H) 35.7 - 45.2 % [facility] MCV 91.0 80.6 - 95.5 fL [facility] MCH 30.1 25.9 - 32.8 pg [facility] MCHC 33.0 31.6 - 35.1 [facility] g/dL [facility] RDW-SD 41.3 39.0 - 49.9 fL [facility] RDW-CV 12.7 12.0 - 15.5 % [facility] PLT 335 166 - 358 [facility] 10*3/L [facility] MPV 10.2 9.5 - 12.9 fL [facility] NRBC/100 WBC 0.0 0.0 - 10.0 /100 [facility] WBCs [facility] NRBC x10^3 <0.01 10*3/L [facility] GRAN MAT (NEUT) % 51.5 % [facility] IMM GRAN % 0.20 % [facility] LYMPH % 35.2 % [facility] MONO % 11.7 % [facility] EOS % 0.8 % [facility] BASO % 0.6 % [facility] GRAN MAT x10^3(ANC) 2.74 1.88 - 7.09 [facility] 10*3/uL [facility] IMM GRAN x10^3 <0.03 0.00 - 0.06 [facility] 10*3/uL [facility] LYMPH x10^3 1.87 1.32 - 3.29 [facility] 10*3/uL [facility] MONO x10^3 0.62 0.33 - 0.92 [facility] 10*3/uL [facility] EOS x10^3 0.04 0.03 - 0.39 [facility] 10*3/uL [facility] BASO x10^3 0.03 0.01 - 0.07 [facility] 10*3/uL [facility] Specimen Blood - ARM, RIGHT Performing Organization Address [facility] Cent[facility]ode Phone Number [facility] CLIA: [id number], [address] [place] [address] TROPONIN I (04/09/2019 11:30 PM CDT) TROPONIN I <0.012 <=0.034 ng/mL [facility] Specimen Blood - ARM, RIGHT Narrative Performed At Equal or Less than 0.034 ng/ml---Normal [facility] Note: Cardiac troponin begins to rise 3-4 hours after the onset of ischemia. Repeat in 4-6 hours if the sample was drawn within 3-4 hours of the onset of the symptom and found normal. Between 0.035 and 0.120 ng/mL--- Borderline. Questionable myocardial injury or necrosis Note: Serial measurement may be necessary to confirm or exclude the diagnosis of myocardial injury or necrosis; Clinical correlation (symptoms, EKGs, imaging studies, and others) required; Repeat in 4-6 hours if clinically indicated. Equal or Higher than 0.121 ng/mL---Abnormal. Myocardial Injury or Necrosis Likely Biotin has been reported to cause a negative bias, interpret results relative to patient's use of biotin. Performing Organization Address [facility] Centercoil Phone Number [facility] CLIA: [id number], [address] [place] [address] URINALYSIS (04/09/2019 11:30 PM CDT) APPEARANCE Slightly Cloudy (A) Clear [facility] COLOR Yellow Yellow [facility] PH 5.5 4.8 - 8.0 [facility] SP GRAVITY >=1.030 1.003 - 1.030 [facility] GLU U QUAL Negative Negative [facility] BLOOD Negative Negative [facility] KETONES Trace (A) Negative [facility] PROTEIN 100 mg/dL (A) Negative [facility] UROBILIN 0.2 mg/dL 0-1.0 mg/dL [facility] BILIRUBIN Moderate (A) Negative [facility] NITRITE Negative Negative [facility] LEUK CORBIN Negative Negative [facility] RBC/HPF 0 0 - 3 HPF [facility] WBC/HPF 20 (H) 0 - 5 HPF [facility] BACTERIA Moderate (A) Negative [facility] SQ EPITH 6 HPF [facility] CA OXALATE 25 (H) <=1 HPF [facility] Ictotest Negative [facility] Specimen Urine - URINE, CLEAN CATCH Performing Organization Address [facility] Center[facility]il Phone Number [facility] CLIA: [id number], [address] [place] [address] MAGNESIUM (04/09/2019 11:30 PM CDT) MAGNESIUM 2.3 1.7 - 2.4 mg/dL [facility] Specimen Blood - ARM, RIGHT Performing Organization Address [facility] Phone Number [facility] CLIA: [id number], [address] [place] [address] COMP. METABOLIC PANEL ([id number]) (04/09/2019 11:30 PM CDT) NA 143 135 - 145 [facility] mmol/L [facility] K 4.0 3.5 - 5.0 [facility] mmol/L [facility] CL 105 98 - 108 mmol/L [facility] CO2 TOTAL 26 23 - 31 mmol/L [facility] AGAP 12 2 - 16 [facility] BUN 20 7 - 23 mg/dL [facility] GLUCOSE 106 70 - 110 mg/dL [facility] CREATININE 0.63 0.50 - 1.04 [facility] mg/dL [facility] TOTAL BILI 0.4 0.1 - 1.1 mg/dL [facility] CALCIUM 10.2 8.6 - 10.6 [facility] mg/dL [facility] T PROTEIN 8.6 (H) 6.3 - 8.2 g/dL [facility] ALBUMIN 4.5 3.5 - 5.0 g/dL [facility] ALK PHOS 148 (H) 34 - 122 U/L [facility] ALT(SGPT) 39 9 - 51 U/L [facility] AST(SGOT) 49 (H) 13 - 40 U/L [facility] eGFR Calculation 97.4 mL/min/1.73m2 [facility] ([facility] [place]) eGFR Calculation 118.0 mL/min/1.73m2 [facility] () [facility] Specimen Blood - ARM, RIGHT Narrative Performed At Association of Glomerular Filtration Rate (GFR) [facility] and Staging of Kidney Disease* + + +- + | GFR (mL/min/1.73 m2)| With Kidney Damage|Without Kidney Damage + + +- + |>90| Stage one| Normal + + +- + |60-89|S tage two| Decreased GFR + + +- + |30-59|S tage three| Stage three + + +- + |15-29|S tage four | Stage four + + +- + |<15 (or dialysis)|Stage five | Stage five + + +- + *Each stage assumes the associated GFR level has been in effect for at least three months.Stages 1 to 5, with or without kidney disease, indicate chronic kidney disease. Notes: Determination of stages one and two (with eGFR >59mL/min/1.73 m2) requires estimation of kidney damage for at least three months as defined by structural or functional abnormalities of the kidney, manifested by either: Pathological abnormalities or Markers of kidney damage (including abnormalities in the composition of the blood or urine or abnormalities in imaging tests). Performing Organization Address City/State/Zipcode Phone Number [facility] CLIA: [id number], [address] [place] [address] [facility] [address] XR CHEST 1 VW (04/09/2019 11:20 PM CDT) Specimen Impressions Performed At PACS/VR/DOSE No acute cardiopulmonary abnormality. I, Sydnie Monroy MD., have reviewed this study and agree with the above report. Narrative Performed At EXAM: XR CHEST 1 VW PACS/VR/DOSE HISTORY: fatigue COMPARISON: 04/09/2019 FINDINGS: The lungs are clear. No pneumothorax or pleural effusion. The cardiomediastinal silhouette is normal in size.No acute osseous abnormalities. Procedure Note [facility], Radiant Results Inft User - 04/10/2019 12:01 AM CDT EXAM: XR CHEST 1 VW HISTORY: fatigue COMPARISON: 04/09/2019 FINDINGS: The lungs are clear. No pneumothorax or pleural effusion. The cardiomediastinal silhouette is normal in size. No acute osseous abnormalities. IMPRESSION No acute cardiopulmonary abnormality. I, Sydnie Monroy MD., have reviewed this study and agree with the above report. Performing Organization Address City/State/Zipcode Phone Number PACS/VR/DOSE documented in this encounter Visit Diagnoses Diagnosis Fatigue, unspecified type - Primary Drug abuse Other, mixed, or unspecified nondependent drug abuse, unspecified documented in this encounter Administered Medications Medication Order MAR Action Action Date Dose Rate Site NaCl 0.9% (NS) bolus New Bag 04/09/2019 11:30 PM CDT 1,000 mL 999 mL/hr infusion 1,000 mL at 999 mL/hr, 1,000 mL, IV Infusion, ONCE, 1 dose, 04/10/19 at 0015, STAT documented in this encounter Insurance Payer Benefit Plan / Subscriber ID Effective Phone Address Type Group Dates [employer] xxxxxxxxx 2019-[facility] [address] [place] [address] [place] [address] documented as of this encounter"
[2019-04-10] MEDS ORDERED: NA CHLORIDE 0.9% 1,000 ML ONE (17:44)
[2019-04-10] MEDS ORDERED: LORazepam 2 MG/ML VIAL ONE (17:44)
[2019-04-10 17:51] LABS: Hematocrit 40.6 % (36.0-45.0)
[2019-04-10 17:52] LABS: Absolute Lymphocytes (CBC) 1.9 K/uL (0.7-4.9); Basophils % 0.6 % (0-1.3); Lymphocytes % 30.5 % (15.3-44.8); MPV 9.3 fL (7.6-11.3)
[2019-04-10 17:58] LABS: Barbiturates NEGATIVE (NEGATIVE); Benzodiazepines NEGATIVE (NEGATIVE); Cocaine NEGATIVE (NEGATIVE); METHAMPHETAM POSITIVE (NEGATIVE); Methadone NEGATIVE (NEGATIVE); Opiates NEGATIVE (NEGATIVE); Phencyclidine NEGATIVE (NEGATIVE); THC Cannibis POSITIVE (NEGATIVE)
[2019-04-10 18:15] LABS: ALT/SGPT 58 U/L (12-78); AST/SGOT 49 U/L (15-37); Albumin 3.5 g/dL (3.4-5.0); Alkaline Phosphatase 140 U/L (45-117); BUN Blood Urea Nitrogen 19 mg/dL (7-18); Bicarbonate 22 mmol/L (21-32); Bilirubin Direct < 0.1 mg/dL (0-0.2); Bilirubin Total 0.3 mg/dL (0.2-1.0); Glucose Level 105 mg/dL (74-106); Potassium 4.4 mmol/L (3.5-5.1); Protein, Total 7.5 g/dL (6.4-8.2); Sodium Level 142 mmol/L (136-145)
--- NOTE | 2019-04-10 18:23 | EKG ---
Test Date: 2019-04-10 Test Time: 17:43:11 Car [employer] Superintendent: TIGRE MEASUREMENT RESULTS: Intervals: Rate: 107 PA: 130 QRSD: 80 QT: 330 QTc: 440 [place]: P: 55 PA: 130 QRS: 51 T: 39 INTERPRETIVE STATEMENTS: Sinus tachycardia Otherwise normal ECG Compared to ECG 04/08/2019 23:03:35 ST (T wave) deviation no longer present Electronically Signed On 04-10-19 18:23:25 CDT by Crow Philippe
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
[2019-04-10 19:29] LABS: Urine Blood NEGATIVE (NEG); Urine Glucose NEGATIVE (NEG); Urine Protein NEGATIVE (NEG); Urine Specific Gravity 1.015 (1.005-1.030); Urine pH 5.5 (5.0-7.0)
== END 2019-04-11 01:10 ==
LOC: ER 16:56
DX: F31.62 Bipolar disorder, current episode mixed, moderate (principal); F41.9 Anxiety disorder, unspecified; Z72.0 Tobacco use
CPT/HCPCS: 93005; 85025; 80048; 36415; 80320; 80329 ×2; 80076; 80307 ×8; 81003; J7030; 96361; 96374; 99285

== ENCOUNTER 2019-05-12 20:46 | Emergency (ER) | payer OTHER ==
[2019-05-12] MEDS ORDERED: ACETAMINOPHEN 325 MG TABLET ONE (21:52)
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
[2019-05-12 23:39] VITALS: TEMP 97.6
[2019-05-12 23:40] VITALS: BP 148/98; O2SAT 100
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
== END 2019-05-12 23:33 | disposition home or self-care (01) ==
LOC: ER 20:46
DX: S63.591A Other specified sprain of right wrist, initial encounter (principal); F41.9 Anxiety disorder, unspecified; Y04.2XXA Assault by strike against or bumped into by another person, initial encounter; Y93.9 Activity, unspecified; Y92.9 Unspecified place or not applicable; F17.210 Nicotine dependence, cigarettes, uncomplicated
CPT/HCPCS: 99283

== ENCOUNTER 2019-08-21 12:40 | Emergency (ER) | payer OTHER ==
--- OUTSIDE RECORDS SUMMARY | 2019-08-21 12:42 | XMS REPORT ---
:1960 [facility] Address [address] [place] [address] Dr. Moura [address] [place] [id number] Care Team Providers Name Role Phone Unavailable Unavailable Unavailable Problems This patient has no known problems. Allergies, Adverse Reactions, Alerts This patient has no known allergies or adverse reactions. Medications This patient has no known medications.
[2019-08-21 13:36] LABS: Absolute Lymphocytes (CBC) 1.9 K/uL (0.7-4.9); Basophils % 1.2 % (0-1.3); Hematocrit 37.3 % (36.0-45.0); Lymphocytes % 39.9 % (15.3-44.8); MPV 8.5 fL (7.6-11.3); RBC Red Blood Cell Count 4.07 M/uL (3.86-4.86)
[2019-08-21] MEDS ORDERED: DIAZEPAM 5 MG TABLET ONE (13:38)
[2019-08-21 13:43] LABS: Protime INR 0.96
[2019-08-21 14:36] LABS: ALT/SGPT 29 U/L (12-78); AST/SGOT 21 U/L (15-37); Albumin 3.8 g/dL (3.4-5.0); Alkaline Phosphatase 102 U/L (45-117); BUN Blood Urea Nitrogen 14 mg/dL (7-18); Bicarbonate 27 mmol/L (21-32); Bilirubin Direct 0.1 mg/dL (0-0.2); Bilirubin Total 0.3 mg/dL (0.2-1.0); Glucose Level 95 mg/dL (74-106); Potassium 3.9 mmol/L (3.5-5.1); Protein, Total 7.2 g/dL (6.4-8.2); Sodium Level 142 mmol/L (136-145)
[2019-08-21 17:38] LABS: Barbiturates NEGATIVE (NEGATIVE); Benzodiazepines POSITIVE (NEGATIVE); Cocaine NEGATIVE (NEGATIVE); METHAMPHETAM POSITIVE (NEGATIVE); Methadone NEGATIVE (NEGATIVE); Opiates NEGATIVE (NEGATIVE); Phencyclidine NEGATIVE (NEGATIVE); THC Cannibis POSITIVE (NEGATIVE)
[2019-08-21 18:03] LABS: Urine Blood NEGATIVE (NEG); Urine Glucose NEGATIVE (NEG); Urine Protein NEGATIVE (NEG); Urine pH 5.5 (5.0-7.0)
--- NOTE | 2019-08-21 20:11 | ER ---
Nurse's Notes [facility] Name: Shaista Awad Age: 59 yrs Sex: Female : 1960 Arrival Date: 08/21/2019 Time: 12:42 Bed 17 Private MD: Eduardo Kapadia S Diagnosis: Suicidal ideations;Major depressive disorder, recurrent Presentation: 08/21 12:46 Presenting complaint: Patient states: "I am being forced out of my home and I am in the aa5 middle of a breakup because he is seeing somebody else and it's making me have suicidal thoughts". Pt states "I also have not been taking my meds like I am supposed to and I also have a drug problem, I am addicted to meth". Pt crying in triage. Pt states "I think I would overdose", but pt seems unsure of plan. 12:46 Transition of care: patient was not received from another setting of care. Onset of aa5 symptoms was August 2019. Risk Assessment: Do you want to hurt yourself or someone else? Patient reports desire/thoughts of hurting themselves or someone else. Provider notified. Initial Sepsis Screen: Does the patient meet any 2 criteria? HR > 90 bpm. Does the patient have a suspected source of infection? No. Patient's initial sepsis screen is negative. Care prior to arrival: None. 12:46 Acuity: CHANI 2 aa5 12:46 Method Of Arrival: Ambulatory aa5 Historical: - Allergies: 12:49 No Known Allergies; aa5 - PMHx: 12:49 Anxiety; Bipolar disorder; drug abuse; peptic ulcer; aa5 12:55 Previous suicide attempt; aa5 - PSHx: 12:49 Tubal ligation; throat tumor removal; aa5 - Immunization history:: Adult Immunizations unknown. - Social history:: Smoking status: Patient uses tobacco products, smokes one pack cigarettes per day. Patient uses street drugs, marijuana, Methamphetamine (Meth). - Ebola Screening: : No symptoms or risks identified at this time. Screenin:30 Abuse screen: Denies threats or abuse. Nutritional screening: No deficits noted. em Tuberculosis screening: No symptoms or risk factors identified. Fall Risk None identified. Assessment: 13:30 General: Appears in no apparent distress. comfortable, slender, Behavior is em cooperative, anxious. Pain: Denies pain. Neuro: Level of Consciousness is awake, alert, obeys commands, Oriented to person, place, time, situation, Appropriate for age. Cardiovascular: Capillary refill < 3 seconds Patient's skin is warm and dry. Respiratory: Airway is patent Respiratory effort is even, unlabored, Respiratory pattern is regular, symmetrical. Derm: Skin is intact, is healthy with good turgor, Skin is pink, warm \\T\\ dry. Musculoskeletal: Capillary refill < 3 seconds, Range of motion: intact in all extremities. 14:27 Reassessment: Patient appears in no apparent distress at this time. Patient and/or em family updated on plan of care and expected duration. Pain level reassessed. Patient is alert, oriented x 3, equal unlabored respirations, skin warm/dry/pink. Patient states feeling better. 15:30 Reassessment: Patient appears in no apparent distress at this time. Patient and/or em family updated on plan of care and expected duration. Pain level reassessed. Patient is alert, oriented x 3, equal unlabored respirations, skin warm/dry/pink. 17:50 Reassessment: Patient appears in no apparent distress at this time. [facility] em at bedside. 19:24 Reassessment: Patient appears in no apparent distress at this time. Patient and/or family updated on plan of care and expected duration. Pain level reassessed. Patient is alert, oriented x 3, equal unlabored respirations, skin warm/dry/pink. 19:34 Reassessment: [facility] Amee Avery RN Nurse to Nurse done. 20:45 Reassessment: Patient appears in no apparent distress at this time. No changes from previously documented assessment. Patient and/or family updated on plan of care and expected duration. Pain level reassessed. Patient is alert, oriented x 3, equal unlabored respirations, skin warm/dry/pink. Patient denies pain at this time. 21:55 Reassessment: Patient appears in no apparent distress at this time. No changes from previously documented assessment. Patient and/or family updated on plan of care and expected duration. Pain level reassessed. Patient is alert, oriented x 3, equal unlabored respirations, skin warm/dry/pink. Psych: 13:30 Subjective: Patient's mood is sad, Delusions are denied. Objective: Patient is em cooperative, restless, Speech is normal, Affect is appropriate. Interventions: Removed personal items and placed in bag. Patient placed in hospital gown. Searched person for dangerous items. Belonging list filled out. Suicide Risk Assessment: Sad Person Scale: Sex of patient: Female: Score 0 points. Age of patient: Score 0 point if patient falls outside of specified age parameters. Depression: Score 1 point if signs of depression are present. Previous Attempt: Score 0 point if patient has not previously attempted suicide. Substance Abuse: Score 1 point if patient abuses alcohol or drugs. Rational Thinking: Score 0 point if patient has rational thinking. Social Support: Score 1 point if social support is lacking and/or unavailable. Organized Plan: Score 0 if patient did not have an organized plan in place. Relationship: Score 1 point if patient is , , , or for a single male Chronic Sickness: Score 0 point if patient does not have a chronic illness, debilitating, or severe disorder. TOTAL POINTS: If total points are 3-4, proposed clinical action is close follow-up/consider hospitalization. Safety Checks: Personal items have been removed. Door is closed to patient's room. Visitors are present. Patient uses methamphetamines Last use was this morning. Commitment: Patient will be a voluntary commitment. Vital Signs: 12:50 BP 165 / 88; Pulse 114; Resp 20 S; Temp 98.7(TE); Pulse Ox 97% on R/A; aa5 12:53 Weight 53.48 kg (M); iw 17:08 BP 129 / 82; Pulse 97; Resp 16; Temp 98.0(O); Pulse Ox 98% on R/A; Pain 0/10; dh3 ED Course: 12:42 Patient arrived in ED. ag5 12:43 Eduardo Kapadia MD is Private Physician. ag5 12:44 Ty Sanders MD is Attending Physician. kdr 12:46 Arm band placed on. aa5 12:49 Triage completed. aa5 13:07 Major Rothman LVN is Primary Nurse. em 13:14 Initial lab(s) drawn, by me, sent to lab. Inserted saline lock: 22 gauge in right dh3 forearm, using aseptic technique. Blood collected. 13:30 Patient has correct armband on for positive identification. Placed in gown. Bed in low em position. Side rails up X2. 17:18 EKG done, by ED staff, reviewed by Ty Sanders MD. [facility] 18:53 faxed chart to [facility]. 20:06 Attending Physician role handed off by Ty Sanders MD 4 20:06 Ike Mathew MD is Attending Physician. tw4 21:58 No provider procedures requiring assistance completed. Patient transferred, IV remains in place. Administered Medications: 13:38 Drug: Valium 5 mg Route: PO; em 14:30 Follow up: Response: No adverse reaction; Marked relief of symptoms; Anxiety decreased em 21:50 Drug: Tylenol 650 mg Route: PO; 21:57 Follow up: Response: No adverse reaction Outcome: 20:09 ER care complete, transfer ordered by . tw4 21:58 Transferred by ground EMS to other acute care facility: [facility]. 21:58 Transferred Transfer form completed. X-rays sent w/ patient. Note: Report given to Vanessa Avery RN and [facility] 21:58 Condition: stable 21:58 Instructed on the need for transfer. 21:59 Patient left the ED. Signatures: Emmanuelle Mullins Ty Sanders MD MD [facility] Major Rothman, RN RN Anali Aggarwal RN RN Alba Marcos RN RN 5 Juliette Jewell 3 Pola Yoon Ike Mathew MD MD 4 Naomie Vaughn ag5 Corrections: (The following items were deleted from the chart) 13:10 12:46 Presenting complaint: Patient states: "I am being forced out of my home and I am aa5 in the middle of a breakup because he is seeing somebody else and it's making me have suicidal thoughts". Pt states "I also have not been taking my meds like I am supposed to and I also have a drug problem, I am addicted to meth". Pt crying in triage. aa5 17:22 14:30 BP 126 / 59; Pulse 85bpm; Resp 18bpm; Pulse Ox 94% 2 lpm Nasal Cannula; em em
--- NOTE | 2019-08-21 20:11 | EDPHYS ---
Physician Documentation [facility] Name: Shaista Awad Age: 59 yrs Sex: Female : 1960 Arrival Date: 08/21/2019 Time: 12:42 Bed 17 Private MD: Eduardo Kapadia S ED Physician Ike Mathew HPI: 08/21 15:22 This 59 yrs old Female presents to ER via Ambulatory with complaints of kdr Depression, Suicidal Ideation. 15:22 The patient presents to the emergency department with depression, over a relationship, kdr a history of substance abuse, Type: methamphetamines, 1.5, suicide ideation, but the patient has no formulated plan. Onset: The symptoms/episode began/occurred gradually, 1 week(s) ago. Past psychiatric history: Prior diagnosis: bipolar disorder, depression. Historical: - Allergies: 12:49 No Known Allergies; aa5 - PMHx: 12:49 Anxiety; Bipolar disorder; drug abuse; peptic ulcer; aa5 12:55 Previous suicide attempt; aa5 - PSHx: 12:49 Tubal ligation; throat tumor removal; aa5 - Immunization history:: Adult Immunizations unknown. - Social history:: Smoking status: Patient uses tobacco products, smokes one pack cigarettes per day. Patient uses street drugs, marijuana, Methamphetamine (Meth). - Ebola Screening: : No symptoms or risks identified at this time. ROS: 15:40 Constitutional: Negative for fever, chills, and weight loss, Eyes: Negative for injury, kdr pain, redness, and discharge, Neck: Negative for injury, pain, and swelling, Cardiovascular: Negative for chest pain, palpitations, and edema, Respiratory: Negative for shortness of breath, cough, wheezing, and pleuritic chest pain, Abdomen/GI: Negative for abdominal pain, nausea, vomiting, diarrhea, and constipation, Back: Negative for injury and pain, : Negative for injury, bleeding, discharge, and swelling, MS/Extremity: Negative for injury and deformity, Skin: Negative for injury, rash, and discoloration, Neuro: Negative for headache, weakness, numbness, tingling, and seizure activity. Allergy/Immunology: Negative for hives, rash, and allergies, Endocrine: Negative for neck swelling, polydipsia, polyuria, polyphagia, and marked weight changes, Hematologic/Lymphatic: Negative for swollen nodes, abnormal bleeding, and unusual bruising. 15:40 Psych: Positive for anxiety, depression, drug dependence, suicidal ideation, Negative for alcohol dependence, auditory hallucinations, visual hallucinations, homicidal ideation, insomnia. Exam: 15:45 Constitutional: This is a well developed, well nourished patient who is awake, alert, kdr and in no acute distress. Head/Face: Normocephalic, atraumatic. Eyes: Pupils equal round and reactive to light, extra-ocular motions intact. Lids and lashes normal. Conjunctiva and sclera are non-icteric and not injected. Cornea within normal limits. Periorbital areas with no swelling, redness, or edema. Neck: Trachea midline, no thyromegaly or masses palpated, and no cervical lymphadenopathy. Supple, full range of motion without nuchal rigidity, or vertebral point tenderness. No Meningismus. Chest/axilla: Normal chest wall appearance and motion. Nontender with no deformity. No lesions are appreciated. Cardiovascular: Regular rate and rhythm with a normal S1 and S2. No gallops, murmurs, or rubs. Normal PMI, no JVD. No pulse deficits. Respiratory: Lungs have equal breath sounds bilaterally, clear to auscultation and percussion. No rales, rhonchi or wheezes noted. No increased work of breathing, no retractions or nasal flaring. Abdomen/GI: Soft, non-tender, with normal bowel sounds. No distension or tympany. No guarding or rebound. No evidence of tenderness throughout. Back: No spinal tenderness. No costovertebral tenderness. Full range of motion. Skin: Warm, dry with normal turgor. Normal color with no rashes, no lesions, and no evidence of cellulitis. MS/ Extremity: Pulses equal, no cyanosis. Neurovascular intact. Full, normal range of motion. Neuro: Awake and alert, GCS 15, oriented to person, place, time, and situation. Cranial nerves II-XII grossly intact. Motor strength 5/5 in all extremities. Sensory grossly intact. Cerebellar exam normal. Normal gait. 15:45 Psych: Behavior/mood is pleasant, cooperative, anxious, Affect is animated, Oriented to person, place, time, Patient having thoughts of suicide. Judgement / Insight is normal. Memory is normal. Delusions/hallucinations are not present. Vital Signs: 12:50 BP 165 / 88; Pulse 114; Resp 20 S; Temp 98.7(TE); Pulse Ox 97% on R/A; aa5 12:53 Weight 53.48 kg (M); iw 17:08 BP 129 / 82; Pulse 97; Resp 16; Temp 98.0(O); Pulse Ox 98% on R/A; Pain 0/10; dh3 MDM: 15:45 Data reviewed: vital signs, nurses notes, lab test result(s). Counseling: I had a kdr detailed discussion with the patient and/or guardian regarding: the historical points, exam findings, and any diagnostic results supporting the discharge/admit diagnosis, lab results, radiology results, the need to transfer to another facility. 20:09 Medical screening is not applicable. tw4 08/21 12:58 Order name: Acetaminophen; Complete Time: 15:19 kdr 08/21 12:58 Order name: Basic Metabolic Panel; Complete Time: 15:19 kdr 08/21 12:58 Order name: CBC with Diff; Complete Time: 15:19 kdr 08/21 12:58 Order name: ETOH Level; Complete Time: 15:19 kdr 08/21 12:58 Order name: Hepatic Function; Complete Time: 15:19 kdr 08/21 12:58 Order name: PT-INR; Complete Time: 15:19 kdr 08/21 12:58 Order name: Ptt, Activated; Complete Time: 15:19 kdr 08/21 12:58 Order name: Salicylate; Complete Time: 15:19 kdr 08/21 12:58 Order name: Urine Drug Screen; Complete Time: 18:21 kdr 08/21 12:58 Order name: IV Saline Lock; Complete Time: 13:20 kdr 08/21 15:14 Order name: Diet Regular; Complete Time: 15:15 3 08/21 17:49 Order name: Urine Dipstick--Ancillary (enter results); Complete Time: 18:21 bd 08/21 12:58 Order name: Labs collected and sent; Complete Time: 13:20 kdr 08/21 12:58 Order name: Urine Dipstick-Ancillary (obtain specimen); Complete Time: 17:21 kdr Administered Medications: 13:38 Drug: Valium 5 mg Route: PO; em 14:30 Follow up: Response: No adverse reaction; Marked relief of symptoms; Anxiety decreased em 21:50 Drug: Tylenol 650 mg Route: PO; 21:57 Follow up: Response: No adverse reaction Disposition: 08/21/19 20:09 Transfer ordered to Psych Facility. Diagnosis are Suicidal ideations, Major depressive disorder, recurrent. - Reason for transfer: Higher level of care. - Accepting physician is Dr Chase. - Condition is Stable. - Problem is an ongoing problem. - Symptoms are unchanged. Signatures: Dispatcher [employer] Ty Gómez MD MD [facility] Major Rothman RN RN em Calderon, Audri, RN RN aa5 Pola Yoon Ike Mathew MD MD tw4 Corrections: (The following items were deleted from the chart) 21:59 20:09 08/21/2019 20:09 Transfer ordered to Psych Facility. Diagnosis is Suicidal wh ideations; Major depressive disorder, recurrent. Reason for transfer: Higher level of care. Accepting physician is Dr Chase. Condition is Stable. Problem is an ongoing problem. Symptoms are unchanged. tw4
[2019-08-21] MEDS ORDERED: ACETAMINOPHEN 325 MG TABLET ONE (21:56)
[2019-08-21 22:20] VITALS: BP 129/82; TEMP 98; O2SAT 98
--- NOTE | 2019-08-22 07:21 | EKG ---
Test Date: 2019-08-21 Test Time: 17:18:26 Spring Layer: BRYON MEASUREMENT RESULTS: Intervals: Rate: 81 IN: 118 QRSD: 82 QT: 360 QTc: 418 Wrights: P: 66 IN: 118 QRS: 75 T: 70 INTERPRETIVE STATEMENTS: Normal sinus rhythm Normal ECG Compared to ECG 04/10/2019 17:43:11 Sinus tachycardia no longer present Electronically Signed On 08-22-19 07:21:38 TAG MARKER by Howie Hodge
== END 2019-08-21 21:59 ==
LOC: ER 12:40
DX: R45.851 Suicidal ideations (principal); F33.9 Major depressive disorder, recurrent, unspecified; F17.210 Nicotine dependence, cigarettes, uncomplicated
CPT/HCPCS: 36415; 80048; 80076; 80307; 80320; 80329; 81003; 85025; 85610; 85730; 93005; 99285

== ENCOUNTER 2020-01-05 08:47 | Emergency (ER) | payer OTHER ==
--- OUTSIDE RECORDS SUMMARY | 2020-01-05 08:50 | XMS REPORT ---
:1960 Author Organization [facility] t Address [address] [place] [address] [address]. [address] [place] [address] Care Team Providers Name Role Phone Shannon Bailey Attending Clinician Problems This patient has no known problems. Allergies, Adverse Reactions, Alerts This patient has no known allergies or adverse reactions. Medications This patient has no known medications. Procedures This patient has no known procedures. Encounters Start End Encounter Admission Attending Care Care Encounter Source Date/Time Date/Time Type Type Clinicians Facility Department ID 2019-04-09 2019-04-10 Emergency Trace Lai [facility] [id number] 22:02:28 01:42:00 Shannon Cook [id number] Stephani [id number] [place] [id number] Results This patient has no known results.
[2020-01-05] MEDS ORDERED: LORazepam 2 MG/ML VIAL ONE (09:29)
[2020-01-05 09:39] LABS: Absolute Lymphocytes (CBC) 1.2 K/uL (0.7-4.9); Basophils % 0.9 % (0-1.3); Hematocrit 37.8 % (36.0-45.0); Lymphocytes % 28.3 % (15.3-44.8); MPV 7.7 fL (7.6-11.3); RBC Red Blood Cell Count 4.09 M/uL (3.86-4.86)
[2020-01-05 09:41] LABS: Protime INR 0.95
[2020-01-05 09:54] LABS: ALT/SGPT 30 U/L (12-78); AST/SGOT 14 U/L (15-37); Albumin 3.7 g/dL (3.4-5.0); Alkaline Phosphatase 97 U/L (45-117); BUN Blood Urea Nitrogen 19 mg/dL (7-18); Bicarbonate 25 mmol/L (21-32); Bilirubin Direct < 0.1 mg/dL (0-0.2); Bilirubin Total 0.2 mg/dL (0.2-1.0); Glucose Level 83 mg/dL (74-106); Potassium 3.8 mmol/L (3.5-5.1); Protein, Total 7.4 g/dL (6.4-8.2); Sodium Level 142 mmol/L (136-145)
[2020-01-05 13:52] LABS: Barbiturates NEGATIVE (NEGATIVE); Benzodiazepines NEGATIVE (NEGATIVE); Cocaine POSITIVE (NEGATIVE); METHAMPHETAM POSITIVE (NEGATIVE); Methadone NEGATIVE (NEGATIVE); Opiates NEGATIVE (NEGATIVE); Phencyclidine NEGATIVE (NEGATIVE); THC Cannibis POSITIVE (NEGATIVE)
--- NOTE | 2020-01-05 14:09 | EDPHYS ---
Physician Documentation [facility] Name: Shaista Awad Age: 59 yrs Sex: Female : 1960 Arrival Date: 01/05/2020 Time: 08:50 Bed 3 Private MD: ED Physician Jared Quach HPI: 01/04 09:42 This 59 yrs old Female presents to ER via Ambulatory with complaints of Psych mh7 Problem. 09:42 The patient presents to the emergency department with depression, over a relationship, mh7 thinks significant other is cheating, a history of substance abuse, Type: methamphetamines, cocaine, marijuana, the amount of abuse is unknown, for years. Onset: The symptoms/episode began/occurred this morning. Past psychiatric history: Prior diagnosis: bipolar disorder, Psychiatric medications include: Wellbutrin, Primary psychiatric physician: [facility], the patient has not had a prior suicide gesture, it is unknown whether or not the patient has a previous inpatient psychiatric history, the patient's last psychiatric treatment was 6 month(s) ago. Associated signs and symptoms: Pertinent positives; anxiety, Pertinent negatives: abdominal pain, chest pain, chills, delusions, fever, hallucinations, headache, homicidal ideation, nausea, night sweats, palpitations, paranoia, shortness of breath, suicide ideation, tremor, vomiting. Severity of symptoms: At their worst the symptoms were moderate this morning, in the emergency department the symptoms are unchanged. The patient has experienced similar episodes in the past, multiple times. Patient states that she has been feeling depressed. She also admits to using methamphetamine and cocaine in the past day. She states that she got into an argument with her significant other this morning that made her feel more depressed. She denies any suicidal ideation, homicidal ideation, auditory, or visual hallucinations. She denies any headache, chest pain, SOB, abdominal pain, nausea, or vomiting.. Historical: - Allergies: 09:10 No Known Allergies; sv - PMHx: 09:10 Anxiety; Bipolar disorder; drug abuse; peptic ulcer; previous suicide attempt; sv - PSHx: 09:10 Tubal ligation; throat tumor removal; sv - Immunization history:: Adult Immunizations up to date. - Social history:: Smoking status: Patient reports the use of cigarette tobacco products, denies chronic smoking, but will smoke occasionally, Patient uses alcohol, occasionally. street drugs, Methamphetamine (Meth). ROS: 09:42 Constitutional: Negative for fever, chills, and weight loss, Eyes: Negative for injury, mh7 pain, redness, and discharge, ENT: Negative for injury, pain, and discharge, Neck: Negative for injury, pain, and swelling, Cardiovascular: Negative for chest pain, palpitations, and edema, Respiratory: Negative for shortness of breath, cough, wheezing, and pleuritic chest pain, Abdomen/GI: Negative for abdominal pain, nausea, vomiting, diarrhea, and constipation, Back: Negative for injury and pain, : Negative for injury, bleeding, discharge, and swelling, MS/Extremity: Negative for injury and deformity, Skin: Negative for injury, rash, and discoloration, Neuro: Negative for headache, weakness, numbness, tingling, and seizure, Allergy/Immunology: Negative for hives, rash, and allergies, Endocrine: Negative for neck swelling, polydipsia, polyuria, polyphagia, and marked weight changes, Hematologic/Lymphatic: Negative for swollen nodes, abnormal bleeding, and unusual bruising. Exam: 09:42 Constitutional: This is a well developed, well nourished patient who is awake, alert, mh7 and in no acute distress. Head/Face: Normocephalic, atraumatic. Eyes: Pupils equal round and reactive to light, extra-ocular motions intact. Lids and lashes normal. Conjunctiva and sclera are non-icteric and not injected. Cornea within normal limits. Periorbital areas with no swelling, redness, or edema. Neck: Trachea midline, no thyromegaly or masses palpated, and no cervical lymphadenopathy. Supple, full range of motion without nuchal rigidity, or vertebral point tenderness. No Meningismus. Chest/axilla: Normal chest wall appearance and motion. Nontender with no deformity. No lesions are appreciated. Cardiovascular: Regular rate and rhythm with a normal S1 and S2. No gallops, murmurs, or rubs. Normal PMI, no JVD. No pulse deficits. Respiratory: Lungs have equal breath sounds bilaterally, clear to auscultation and percussion. No rales, rhonchi or wheezes noted. No increased work of breathing, no retractions or nasal flaring. Abdomen/GI: Soft, non-tender, with normal bowel sounds. No distension or tympany. No guarding or rebound. No evidence of tenderness throughout. Back: No spinal tenderness. No costovertebral tenderness. Full range of motion. Skin: Warm, dry with normal turgor. Normal color with no rashes, no lesions, and no evidence of cellulitis. MS/ Extremity: Pulses equal, no cyanosis. Neurovascular intact. Full, normal range of motion. Neuro: Awake and alert, GCS 15, oriented to person, place, time, and situation. Cranial nerves II-XII grossly intact. Motor strength 5/5 in all extremities. Sensory grossly intact. Cerebellar exam normal. Normal gait. 09:42 Psych: Behavior/mood is anxious, depressed, Affect is calm, Oriented to person, place, time, Patient has no thoughts/intents to harm self or others. Judgement / Insight is normal. Memory is normal. Delusions/hallucinations are not present. Vital Signs: 09:03 BP 158 / 116; Pulse 109; Resp 20; Temp 98.3; Pulse Ox 96% ; Weight 52.16 kg; Height 5 sv ft. 4 in. (162.56 cm); Pain 0/10; 09:48 BP 111 / 69; Pulse 97; Resp 16; Pulse Ox 98% ; sv 10:00 BP 115 / 69; Pulse 94; Resp 16; Pulse Ox 95% ; sv 11:14 BP 168 / 111; Pulse 91; Resp 15; Pulse Ox 98% ; sv 11:55 BP 155 / 97; Pulse 92; Resp 16; Pulse Ox 97% ; sv 12:36 BP 150 / 97; Pulse 100; Resp 16; Pulse Ox 99% ; sv 09:03 Body Mass Index 19.74 (52.16 kg, 162.56 cm) sv MDM: 09:13 Patient medically screened. mh7 14:02 Differential diagnosis: drug withdrawal. acute psychotic break, depression, psychosis mh7 secondary to non-compliance, substance abuse. Data reviewed: vital signs, nurses notes, lab test result(s), CBC, electrolytes, urinalysis, urine drug screen. Data interpreted: threat monitoring analyst: rate is 95 beats/min, rhythm is normal sinus rhythm, regular, Interpretation: normal rate, normal rhythm, Pulse oximetry: on room air is 99 %. Interpretation: normal. Counseling: I had a detailed discussion with the patient and/or guardian regarding: the historical points, exam findings, and any diagnostic results supporting the discharge/admit diagnosis, the presence of at least one elevated blood pressure reading (>120/80) during this emergency department visit, lab results, radiology results, to return to the emergency department if symptoms worsen or persist or if there are any questions or concerns that arise at home. 01/05 07:15 Counseling: I had a detailed discussion with the patient and/or guardian regarding: [facility] Cessation of all illicit substances. Response to treatment: the patient's condition has returned to base line. ED course: Feeling better, NAD, VSS, no focal neurological deficits. No suicidal or homicidal ideation. Discussed test results and findings with the patient. She will follow up with her doctor but agreed to return to the ED if worsening of symptoms or other concerns.. 01/04 09:15 Order name: CBC with Diff; Complete Time: 10:10 [facility] 01/04 09:15 Order name: Basic Metabolic Panel; Complete Time: 10:10 [facility] 01/04 09:15 Order name: Protime (+inr); Complete Time: 10:10 [facility] 01/04 09:15 Order name: Ptt, Activated; Complete Time: 10:10 [facility] 01/04 09:15 Order name: Alcohol Level; Complete Time: 10:10 [facility] 01/04 09:15 Order name: LFT's; Complete Time: 10:10 [facility] 01/04 09:15 Order name: Tylenol Level; Complete Time: 10:10 [facility] 01/04 09:15 Order name: Salicylate; Complete Time: 10:24 [facility] 01/04 09:15 Order name: UDS; Complete Time: 14:00 [facility] 01/04 09:15 Order name: Saline Lock; Complete Time: 09:25 [facility] 01/04 13:06 Order name: Urine Dipstick--Ancillary (enter results) em1 Administered Medications: 01/04 09:25 Drug: Ativan 1 mg Route: IVP; Site: left antecubital; sv 10:30 Follow up: Response: No adverse reaction; Marked relief of symptoms; Anxiety decreased sv Disposition: 01/05/20 14:08 Discharged to Home. Impression: Cocaine abuse, Other psychoactive substance abuse with intoxication - Methamphetamine and Marijuana abuse, Bipolar disorder. - Condition is Stable. - Discharge Instructions: Stimulant Use Disorder-Cocaine, Bipolar Disorder, Stimulant Use Disorder-Methamphetamines. - Medication Reconciliation Form, Thank You Letter, Antibiotic Education, Prescription Opioid Use form. - Follow up: Private Physician; When: 1 - 2 days; Reason: Worsening of condition, Re-evaluation by your physician. Follow up: Sunny Moy MD; When: 1 - 2 days; Reason: Worsening of condition, Re-evaluation by your physician. - Problem is an ongoing problem. - Symptoms have improved. Signatures: Dispatcher [employer] Jeanie Mariee RN RN Major Rothman RN RN em Jared Quach MD MD mh7 Corrections: (The following items were deleted from the chart) 14:19 14:08 01/05/2020 14:08 Discharged to Home. Impression: Cocaine abuse; Other em psychoactive substance abuse with intoxication - Methamphetamine and Marijuana abuse; Bipolar disorder. Condition is Stable. Forms are Medication Reconciliation Form, Thank You Letter, Antibiotic Education, Prescription Opioid Use. Follow up: Private Physician; When: 1 - 2 days; Reason: Worsening of condition, Re-evaluation by your physician. Follow up: Sunny Moy; When: 1 - 2 days; Reason: Worsening of condition, Re-evaluation by your physician. Problem is an ongoing problem. Symptoms have improved. mh7
--- NOTE | 2020-01-05 14:09 | ER ---
Nurse's Notes [facility] Name: Shaista Awad Age: 59 yrs Sex: Female : 1960 Arrival Date: 01/05/2020 Time: 08:50 Bed 3 Private MD: Diagnosis: Cocaine abuse;Other psychoactive substance abuse with intoxication-Methamphetamine and Marijuana abuse;Bipolar disorder Presentation: 01/04 09:03 Chief complaint: Patient states: "My partner was not being nice to me this morning and sv I didn't know what to do. He was going to kick me out of the house. I just know I needed help and I had just said I wanted to hurt myself because I didn't know any other way to get help. I don't want to hurt myself right now." Pt denies SI or HI right now. Pt used methamphetamine today at 0600. Coronavirus screen: Proceed with normal triage. Patient denies a cough. Patient denies shortness of breath or difficulty breathing. Patient denies measured and/or subjective temperature greater than 100.4F prior to today's visit. Patient denies travel on a cruise ship or to a country the [facility] currently lists as an affected area. Patient denies contact with known and/or suspected case of COVID-19. Ebola Screen: No symptoms or risks identified at this time. Initial Sepsis Screen: Does the patient meet any 2 criteria? HR > 90 bpm. No. Patient's initial sepsis screen is negative. Does the patient have a suspected source of infection? No. Patient's initial sepsis screen is negative. Risk Assessment: Do you want to hurt yourself or someone else? Patient reports no desire to harm self or others. Onset of symptoms was January 05, 2020. 09:03 Method Of Arrival: Ambulatory sv 09:03 Acuity: CHANI 2 sv Triage Assessment: 09:05 General: Appears in no apparent distress. comfortable, Behavior is cooperative, sv anxious, restless. Pain: Denies pain. Neuro: Level of Consciousness is awake, alert, obeys commands, Oriented to person, place, time, situation, Moves all extremities. Full function Gait is steady. Respiratory: Airway is patent Respiratory effort is even, unlabored, Respiratory pattern is regular, symmetrical. Derm: Skin is normal, Multiple scabs noted over entire body. Historical: - Allergies: 09:10 No Known Allergies; sv - PMHx: 09:10 Anxiety; Bipolar disorder; drug abuse; peptic ulcer; previous suicide attempt; sv - PSHx: 09:10 Tubal ligation; throat tumor removal; sv - Immunization history:: Adult Immunizations up to date. - Social history:: Smoking status: Patient reports the use of cigarette tobacco products, denies chronic smoking, but will smoke occasionally, Patient uses alcohol, occasionally. street drugs, Methamphetamine (Meth). Screenin:30 Abuse screen: Denies threats or abuse. Denies injuries from another. Nutritional sv screening: No deficits noted. Tuberculosis screening: No symptoms or risk factors identified. Fall Risk None identified. Assessment: 09:10 Reassessment: Pt reports she used to take Depakote, Buspar, and Risperdol. sv 09:47 Reassessment: Patient appears in no apparent distress at this time. Patient and/or sv family updated on plan of care and expected duration. Pain level reassessed. Pt appears to be sleeping at this time, will continue to monitor. 12:30 Reassessment: Claudia from [facility] is speaking with the pt via [employer] on iPad. sv 12:50 Reassessment: pt had a [employer] video chat interview via Ipad. em 13:36 Reassessment: Patient appears in no apparent distress at this time. Patient and/or sv family updated on plan of care and expected duration. Pain level reassessed. Patient is alert, oriented x 3, equal unlabored respirations, skin warm/dry/pink. Pt is awake and speaking with staff. Pt asking if she can go home now. Pt spoke with her partner and he said he would be coming to pick her up. Informed Dr Quach. Pt denies SI. 14:27 Reassessment: Patient appears in no apparent distress at this time. Patient and/or sv family updated on plan of care and expected duration. Pain level reassessed. Patient is alert, oriented x 3, equal unlabored respirations, skin warm/dry/pink. Psych: 09:11 Subjective: Patient's mood is elevated, Delusions are denied. Objective: Patient is sv cooperative, Speech is rapid, Affect is appropriate. Interventions: Patient reassessed during use of restraints. Patient is physically safe. Patient's cardiac status is stable. Patient's respirations are even and unlabored. Patient has good circulation in all extremities as indicated by capillary refill < 3 seconds. Patient's ROM assessed and is intact. Patient nutrition and hydration needs will continue to be monitored and addressed. Patient hygiene and elimination needs met. Patient assessed for signs of distress. Patient remains reasonably comfortable at this time. Suicide Risk Assessment: Sad Person Scale: Sex of patient: Female: Score 0 points. Age of patient: Score 0 point if patient falls outside of specified age parameters. Depression: Score 1 point if signs of depression are present. Previous Attempt: Score 1 point if patient has previously attempted suicide. Substance Abuse: Score 1 point if patient abuses alcohol or drugs. Rational Thinking: Score 1 point if patient is lacking rational thinking. Social Support: Score 1 point if social support is lacking and/or unavailable. Organized Plan: Score 0 if patient did not have an organized plan in place. Relationship: Score 1 point if patient is , , , or for a single male Chronic Sickness: Score 1 point if patient has illness, chronic, debilitating, or severe. TOTAL POINTS: If total points are 7-10, the proposed clinical action is to hospitalize or commit. Implement suicide precautions. Safety Checks: Door is open. No visitors are present at this time. Patient uses of wine, Patient uses methamphetamines Last use was 3 hours ago. Commitment: Patient will be a voluntary commitment. Vital Signs: 09:03 BP 158 / 116; Pulse 109; Resp 20; Temp 98.3; Pulse Ox 96% ; Weight 52.16 kg; Height 5 sv ft. 4 in. (162.56 cm); Pain 0/10; 09:48 BP 111 / 69; Pulse 97; Resp 16; Pulse Ox 98% ; sv 10:00 BP 115 / 69; Pulse 94; Resp 16; Pulse Ox 95% ; sv 11:14 BP 168 / 111; Pulse 91; Resp 15; Pulse Ox 98% ; sv 11:55 BP 155 / 97; Pulse 92; Resp 16; Pulse Ox 97% ; sv 12:36 BP 150 / 97; Pulse 100; Resp 16; Pulse Ox 99% ; sv 09:03 Body Mass Index 19.74 (52.16 kg, 162.56 cm) sv ED Course: 08:50 Patient arrived in ED. ag5 09:00 Jared Quach MD is Attending Physician. mh7 09:00 Major Rothman, RN is Primary Nurse. em 09:03 Primary Nurse role handed off by Major Rothman RN sv 09:03 Jeanie James, RN is Primary Nurse. sv 09:09 Triage completed. sv 09:10 ED physician to see patient. sv 09:10 Arm band placed on. sv 09:25 Initial lab(s) drawn, by me, sent to lab. Inserted saline lock: 20 gauge in left em antecubital area, using aseptic technique. Blood collected. 09:30 Patient has correct armband on for positive identification. Bed in low position. Call sv light in reach. Pulse ox on. NIBP on. 12:08 [facility] crisis line contacted to request screening of pt. Spoke with [email or web address] 13:05 Urine collected: clean catch specimen, clear, luciano colored. [email or web address] 14:04 Sunny Moy MD is Referral Physician. mh7 14:19 No provider procedures requiring assistance completed. IV discontinued, intact, sv bleeding controlled, No redness/swelling at site. Pressure dressing applied. Administered Medications: 09:25 Drug: Ativan 1 mg Route: IVP; Site: left antecubital; sv 10:30 Follow up: Response: No adverse reaction; Marked relief of symptoms; Anxiety decreased sv Outcome: 14:08 Discharge ordered by MD. 7 14:19 Patient left the ED. em 14:19 Discharged to home ambulatory, Pt's partner coming to get her sv 14:19 Condition: stable 14:19 Discharge instructions given to patient, Instructed on discharge instructions, follow up and referral plans. Demonstrated understanding of instructions, follow-up care. Signatures: Jos Barriga [email or web address] Jeanie James RN RN Major Rothman, Juan Carlos Cottno RN em1 Naomie Vaughn 5 Jared Quach MD MD 7 Corrections: (The following items were deleted from the chart) 11:05 10:00 BP 81 / 69; Pulse 94bpm; Resp 16bpm; Pulse Ox 95%; sv sv 14:28 14:27 No provider procedures requiring assistance completed. sv sv 14:28 14:27 IV discontinued, intact, bleeding controlled, No redness/swelling at site. sv Pressure dressing applied, sv
[2020-01-05 14:41] VITALS: TEMP 98.3
[2020-01-05 14:47] VITALS: BP 150/97; O2SAT 99
[2020-01-05 18:18] LABS: Urine Blood NEGATIVE (NEG); Urine Glucose NEGATIVE (NEG); Urine Protein NEGATIVE (NEG); Urine Specific Gravity >1.030 (1.005-1.030)
== END 2020-01-05 14:19 | disposition home or self-care (01) ==
LOC: ER 08:47
DX: F14.10 Cocaine abuse, uncomplicated (principal); F12.10 Cannabis abuse, uncomplicated; F19.10 Other psychoactive substance abuse, uncomplicated; F31.9 Bipolar disorder, unspecified; F17.210 Nicotine dependence, cigarettes, uncomplicated
CPT/HCPCS: 36415; 80048; 80076; 80307; 80320; 80329; 81003; 85025; 85610; 85730; 96374; 99285

== ENCOUNTER 2020-01-15 15:23 | Emergency (ER) | payer OTHER ==
--- OUTSIDE RECORDS SUMMARY | 2020-01-15 15:24 | XMS REPORT | Continuity of Care Document ---
:1960 Author Organization [facility] t Address [address] [place] [address] Care Team Providers Name Role Phone Shannon [...] Department ID 2019-04-09 2019-04-10 Emergency Trace Lai [facility] [id number] 22:02:28 01:42:00 Shannon Cook [id number] [place] [id number] [place] [id number] Results This patient has no known results.
[2020-01-15] MEDS ORDERED: LORazepam 2 MG/ML VIAL ONE (16:19)
[2020-01-15] MEDS ORDERED: ONDANSETRON 4 MG/2 ML VIAL ONE (16:19)
[2020-01-15 16:20] LABS: Absolute Lymphocytes (CBC) 1.6 K/uL (0.7-4.9); Basophils % 0.9 % (0-1.3); Hematocrit 41.7 % (36.0-45.0); Lymphocytes % 22.1 % (15.3-44.8); MPV 8.5 fL (7.6-11.3); RBC Red Blood Cell Count 4.52 M/uL (3.86-4.86)
[2020-01-15] MEDS ORDERED: FAMOTIDINE 20 MG/2 ML VIAL IV ONE (16:20)
[2020-01-15 16:24] LABS: Protime INR 0.87
[2020-01-15 16:34] LABS: ALT/SGPT 30 U/L (12-78); AST/SGOT 19 U/L (15-37); Albumin 3.7 g/dL (3.4-5.0); Alkaline Phosphatase 112 U/L (45-117); BUN Blood Urea Nitrogen 19 mg/dL (7-18); Bicarbonate 23 mmol/L (21-32); Bilirubin Direct < 0.1 mg/dL (0-0.2); Bilirubin Total 0.1 mg/dL (0.2-1.0); Glucose Level 99 mg/dL (74-106); Potassium 4.2 mmol/L (3.5-5.1); Protein, Total 7.3 g/dL (6.4-8.2); Sodium Level 142 mmol/L (136-145)
[2020-01-15 20:35] LABS: Barbiturates NEGATIVE (NEGATIVE); Benzodiazepines NEGATIVE (NEGATIVE); Methadone NEGATIVE (NEGATIVE)
[2020-01-15 20:36] LABS: Cocaine POSITIVE (NEGATIVE); METHAMPHETAM POSITIVE (NEGATIVE); Opiates NEGATIVE (NEGATIVE); Phencyclidine NEGATIVE (NEGATIVE); THC Cannibis POSITIVE (NEGATIVE)
[2020-01-15 20:46] LABS: Urine Blood NEGATIVE (NEG); Urine Glucose NEGATIVE (NEG); Urine Protein TRACE (NEG); Urine pH 5.5 (5.0-7.0)
--- NOTE | 2020-01-15 22:03 | EDPHYS ---
Physician Documentation [facility] Name: Shaista Awad Age: 59 yrs Sex: Female : 1960 Arrival Date: 01/15/2020 Time: 15:24 Bed 7 Private MD: CONRAD Physician Xiang Paige HPI: 01/14 16:51 This 59 yrs old Female presents to ER via Ambulatory with complaints of mh7 Withdrawal. 16:51 The patient presents to the emergency department with anxiety, over a relationship, has mh7 had a recent break-up, thinks significant other is "cheating", depression, over a relationship, thinks significant other is cheating, has had a recent break-up, a history of substance abuse, Type: methamphetamines, cocaine, the amount of abuse is unknown, for years. Onset: The symptoms/episode began/occurred this morning. Past psychiatric history: Prior diagnosis: bipolar disorder. Associated signs and symptoms: Pertinent negatives: abdominal pain, chest pain, chills, delusions, fever, hallucinations, headache, homicidal ideation, nausea, night sweats, palpitations, paranoia, shortness of breath, substance abuse, tremor, vomiting. 16:52 Severity of symptoms: At their worst the symptoms were moderate this morning, in the [facility] emergency department the symptoms are unchanged. The patient has experienced similar episodes in the past, multiple times. Historical: - Allergies: 16:45 No Known Allergies; sv - PMHx: 16:45 Anxiety; Bipolar disorder; drug abuse; peptic ulcer; previous suicide attempt; sv - PSHx: 16:45 Tubal ligation; throat tumor removal; sv - Immunization history:: Adult Immunizations up to date. - Social history:: Smoking status: Patient reports the use of cigarette tobacco products, smokes one pack cigarettes per day. Patient uses alcohol, street drugs, cocaine, Methamphetamine (Meth). ROS: 16:52 Constitutional: Negative for fever, chills, and weight loss, Eyes: Negative for injury, mh7 pain, redness, and discharge, ENT: Negative for injury, pain, and discharge, Neck: Negative for injury, pain, and swelling, Cardiovascular: Negative for chest pain, palpitations, and edema, Respiratory: Negative for shortness of breath, cough, wheezing, and pleuritic chest pain, Abdomen/GI: Negative for abdominal pain, nausea, vomiting, diarrhea, and constipation, Back: Negative for injury and pain, : Negative for injury, bleeding, discharge, and swelling, MS/Extremity: Negative for injury and deformity, Skin: Negative for injury, rash, and discoloration, Neuro: Negative for headache, weakness, numbness, tingling, and seizure, Allergy/Immunology: Negative for hives, rash, and allergies, Endocrine: Negative for neck swelling, polydipsia, polyuria, polyphagia, and marked weight changes, Hematologic/Lymphatic: Negative for swollen nodes, abnormal bleeding, and unusual bruising. Exam: 16:52 Constitutional: This is a well developed, well nourished patient who is awake, alert, mh7 and in no acute distress. Head/Face: Normocephalic, atraumatic. Eyes: Pupils equal round and reactive to light, extra-ocular motions intact. Lids and lashes normal. Conjunctiva and sclera are non-icteric and not injected. Cornea within normal limits. Periorbital areas with no swelling, redness, or edema. Neck: Trachea midline, no thyromegaly or masses palpated, and no cervical lymphadenopathy. Supple, full range of motion without nuchal rigidity, or vertebral point tenderness. No Meningismus. Chest/axilla: Normal chest wall appearance and motion. Nontender with no deformity. No lesions are appreciated. Cardiovascular: Regular rate and rhythm with a normal S1 and S2. No gallops, murmurs, or rubs. Normal PMI, no JVD. No pulse deficits. Respiratory: Lungs have equal breath sounds bilaterally, clear to auscultation and percussion. No rales, rhonchi or wheezes noted. No increased work of breathing, no retractions or nasal flaring. Abdomen/GI: Soft, non-tender, with normal bowel sounds. No distension or tympany. No guarding or rebound. No evidence of tenderness throughout. Back: No spinal tenderness. No costovertebral tenderness. Full range of motion. Skin: Warm, dry with normal turgor. Normal color with no rashes, no lesions, and no evidence of cellulitis. MS/ Extremity: Pulses equal, no cyanosis. Neurovascular intact. Full, normal range of motion. Neuro: Awake and alert, GCS 15, oriented to person, place, time, and situation. Cranial nerves II-XII grossly intact. Motor strength 5/5 in all extremities. Sensory grossly intact. Cerebellar exam normal. Normal gait. 16:52 Psych: Behavior/mood is anxious, depressed, Affect is animated, Oriented to person, place, time. 19:37 Psych: Patient having thoughts of suicide. Plan for suicide is plan to cut wrists mh7 Judgement / Insight is impaired. Memory is normal. Delusions/hallucinations are not present. 01/15 00:47 ECG was reviewed by the Attending Physician. [facility] Vital Signs: 01/14 15:34 BP 155 / 82; Pulse 132; Resp 20; Temp 97.8; Pulse Ox 95% on R/A; Weight 52.16 kg; ph Height 5 ft. 4 in. (162.56 cm); 16:51 BP 130 / 89; Pulse 89; Resp 17; Temp 97.4(TE); Pulse Ox 98% on R/A; mh5 15:34 Body Mass Index 19.74 (52.16 kg, 162.56 cm) ph MDM: 16:[address] [facility] 19:37 Differential diagnosis: drug withdrawal. acute psychotic break, depression, psychosis mh7 secondary to non-compliance. Data reviewed: vital signs, nurses notes, EMS record, lab test result(s), CBC, drug level(s), electrolytes. Data interpreted: cardiac monitor technician: rate is 89 beats/min, rhythm is normal sinus rhythm, regular, Pulse oximetry: on room air is 98 %. Interpretation: normal. Counseling: I had a detailed discussion with the patient and/or guardian regarding: the historical points, exam findings, and any diagnostic results supporting the discharge/admit diagnosis, lab results. Response to treatment: the patient's symptoms have markedly improved after treatment. 20:39 Patient medically screened. [facility] 01/14 16:02 Order name: Acetaminophen; Complete Time: 19:04 [facility] 01/14 16:02 Order name: Basic Metabolic Panel; Complete Time: 19:04 [facility] 01/14 16:02 Order name: CBC with Diff; Complete Time: 19:04 [facility] 01/14 16:02 Order name: ETOH Level; Complete Time: 20:39 [facility] 01/14 16:02 Order name: Hepatic Function; Complete Time: 19:04 [facility] 01/14 16:02 Order name: PT-INR; Complete Time: 19:04 [facility] 01/14 16:02 Order name: Ptt, Activated; Complete Time: 19:04 [facility] 01/14 16:02 Order name: Salicylate; Complete Time: 19:04 [facility] 01/14 16:02 Order name: Urine Drug Screen; Complete Time: 20:39 [facility] 01/14 17:45 Order name: Urine Dipstick--Ancillary (enter results); Complete Time: 00:46 01/14 16:02 Order name: EKG; Complete Time: 16:03 [facility] 01/14 16:02 Order name: EKG - Nurse/Tech; Complete Time: 16:44 [facility] 01/14 16:02 Order name: IV Saline Lock; Complete Time: 16:38 [facility] 01/14 16:02 Order name: Labs collected and sent; Complete Time: 16:38 [facility] 01/14 16:02 Order name: Urine Dipstick-Ancillary (obtain specimen); Complete Time: 17:46 mh7 EC/03 00:47 Rate is 86 beats/min. Rhythm is regular. QRS Patten is Normal. LA interval is normal. QRS og interval is normal. QT interval is normal. No Q waves. T waves are Normal. No ST changes noted. Clinical impression: Normal ECG and No evidence of ischemia. Interpreted by me. Reviewed by me. Administered Medications: 01/14 16:30 Drug: Ativan 1 mg Route: IVP; Site: left forearm; sv 17:00 Follow up: Response: No adverse reaction sv 16:32 Drug: Pepcid 20 mg Route: IVP; Site: left forearm; sv 17:00 Follow up: Response: No adverse reaction sv 16:34 Drug: Zofran (Ondansetron) 4 mg Route: IVP; Site: left forearm; sv 17:00 Follow up: Response: No adverse reaction sv 01/15 01:24 Drug: Zofran (Ondansetron) 4 mg Route: PO; jd3 01:25 Follow up: Response: No adverse reaction jd3 Disposition: 01/15/20 22:02 Transfer ordered to Psych Facility. Diagnosis are Abuse of non-psychoactive substances, Cocaine abuse, Adverse effect of amphetamines, Bipolar disorder, Suicidal ideations. - Reason for transfer: Higher level of care. - Accepting physician is to psych. - Condition is Fair. - Problem is new. - Symptoms have improved. Signatures: Dispatcher [employer] Jeanie Mariee RN RN sv Anderson, Corey, MD MD cha Davies, Jonathon, RN RN jd3 Holmes, Maurice, MD MD mh7 Corrections: (The following items were deleted from the chart) 01:39 06 22:02 01/15/2020 22:02 Transfer ordered to Psych Facility. Diagnosis is Abuse of jd3 non-psychoactive substances; Cocaine abuse; Adverse effect of amphetamines; Bipolar disorder; Suicidal ideations. Reason for transfer: Higher level of care. Accepting physician is to psych. Condition is Fair. Problem is new. Symptoms have improved. og
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
[2020-01-16] MEDS ORDERED: ONDANSETRON 4 MG (ODT) TAB ONE (01:33)
[2020-01-16 01:51] VITALS: BP 130/89; TEMP 97.4; O2SAT 98
--- NOTE | 2020-01-16 16:31 | EKG ---
Test Date: 2020-01-15 Test Time: 16:47:09 Neonatal Intensive Care Unit Nurse: MARIA E MEASUREMENT RESULTS: Intervals: Rate: 86 NV: 116 QRSD: 78 QT: 386 QTc: 461 Silvis: P: 68 NV: 116 QRS: 76 T: 72 INTERPRETIVE STATEMENTS: Normal sinus rhythm Normal ECG Compared to ECG 08/21/2019 17:18:26 No significant changes Electronically Signed On 01-16-20 16:27:42 CDT by Crow Philippe
== END 2020-01-16 01:39 ==
LOC: ER 15:23
DX: F14.10 Cocaine abuse, uncomplicated (principal); F55.8 Abuse of other non-psychoactive substances; F31.9 Bipolar disorder, unspecified; T43.625A Adverse effect of amphetamines, initial encounter; F17.210 Nicotine dependence, cigarettes, uncomplicated
CPT/HCPCS: 93005; 85025; 80048; 36415; 80320; 80329 ×2; 85610; 80076; 80307 ×8; 85730; 81003; 51702; 96375; 96374; 99285; J2405

== ENCOUNTER 2020-02-04 13:58 | Emergency (ER) | payer OTHER ==
--- OUTSIDE RECORDS SUMMARY | 2020-02-04 14:44 | XMS REPORT | Continuity of Care Document ---
:1960 Author Organization [facility] t Address [address] [place] [address] [address]. [address]. [address] [place] [address] Care Team Providers Name Role Phone Shannon [...] Department ID 2019-04-09 2019-04-10 Emergency Trace Lai [facility] [id number] 22:02:28 01:42:00 Shannon Cook [id number] [place]ph[place] [id number] [place] [id number] Results This patient has no known results.
[2020-02-04 15:36] LABS: Absolute Lymphocytes (CBC) 0.9 K/uL (0.7-4.9); Basophils % 0.4 % (0-1.3); Hematocrit 38.6 % (36.0-45.0); Lymphocytes % 16.7 % (15.3-44.8); MPV 8.9 fL (7.6-11.3); RBC Red Blood Cell Count 4.06 M/uL (3.86-4.86)
[2020-02-04] MEDS ORDERED: ONDANSETRON 4 MG (ODT) TAB ONE (15:43)
[2020-02-04] MEDS ORDERED: ACETAMINOPHEN 500 MG TAB ONE (15:43)
[2020-02-04 15:53] LABS: Protime INR 0.97
[2020-02-04 16:08] LABS: Barbiturates NEGATIVE (NEGATIVE); Benzodiazepines POSITIVE (NEGATIVE); Cocaine POSITIVE (NEGATIVE); METHAMPHETAM POSITIVE (NEGATIVE); Methadone NEGATIVE (NEGATIVE); Opiates NEGATIVE (NEGATIVE); Phencyclidine NEGATIVE (NEGATIVE); THC Cannibis POSITIVE (NEGATIVE)
[2020-02-04 16:09] LABS: ALT/SGPT 39 U/L (12-78); AST/SGOT 30 U/L (15-37); Albumin 3.7 g/dL (3.4-5.0); Alkaline Phosphatase 103 U/L (45-117); BUN Blood Urea Nitrogen 21 mg/dL (7-18); Bicarbonate 26 mmol/L (21-32); Bilirubin Direct < 0.1 mg/dL (0-0.2); Bilirubin Total 0.4 mg/dL (0.2-1.0); Glucose Level 60 mg/dL (74-106); Potassium 4.2 mmol/L (3.5-5.1); Protein, Total 7.7 g/dL (6.4-8.2); Sodium Level 142 mmol/L (136-145)
[2020-02-04] MEDS ORDERED: CEPHALEXIN 250 MG CAP ONE (16:24)
[2020-02-04] MEDS ORDERED: TOPIRAMATE 25 MG TAB PO ONE (16:30)
[2020-02-04] MEDS ORDERED: LORazepam 2 MG/ML VIAL ONE (16:47)
--- NOTE | 2020-02-04 18:35 | EDPHYS ---
Physician Documentation [facility] Name: Shaista Awad Age: 59 yrs Sex: Female : 1960 Arrival Date: 02/04/2020 Time: 14:06 Bed 14 Private MD: ED Physician Srinivas Back HPI: 02/03 15:50 This 59 yrs old Female presents to ER via Law Enforcement with complaints of cp Psych Problem. 15:50 The patient presents to the emergency department with suicide ideation, but the patient cp has no formulated plan. Onset: The symptoms/episode began/occurred yesterday. Past psychiatric history: Prior diagnosis: bipolar disorder, Psychiatric medications include: none. Associated signs and symptoms: Pertinent positives; substance abuse. Historical: - Allergies: 14:21 No Known Allergies; iw - PMHx: 14:21 Anxiety; Bipolar disorder; drug abuse; peptic ulcer; previous suicide attempt; iw ADD/ADHD; Anemia; - PSHx: 14:21 Tubal ligation; throat tumor removal; iw - Immunization history:: Adult Immunizations unknown. - Social history:: Smoking status: Patient uses street drugs, cocaine, Methamphetamine (Meth). ROS: 16:00 Constitutional: Negative for body aches, chills, fever, poor PO intake. cp 16:00 Eyes: Negative for injury, pain, redness, and discharge. cp 16:00 ENT: Negative for drainage from ear(s), ear pain, sore throat, difficulty swallowing, difficulty handling secretions. 16:00 Cardiovascular: Negative for chest pain, palpitations. 16:00 Respiratory: Negative for cough, shortness of breath, wheezing. 16:00 Abdomen/GI: Positive for nausea, Negative for abdominal pain, vomiting, diarrhea, constipation. 16:00 Skin: Positive for laceration(s), of the volar surface of bilateral forearm. 16:00 Neuro: Positive for headache. 16:00 All other systems are negative. Exam: 16:05 Constitutional: The patient appears in no acute distress, alert, awake, non-toxic, well cp developed, well nourished. 16:05 Head/Face: Normocephalic, atraumatic. cp 16:05 Eyes: Periorbital structures: appear normal, Pupils: equal, round, and reactive to light and accomodation, Extraocular movements: intact throughout, Conjunctiva: normal, no exudate, no injection, Sclera: no appreciated abnormality, Lids and lashes: appear normal, bilaterally. 16:05 ENT: External ear(s): are unremarkable, Nose: is normal, Mouth: Lips: moist, Oral mucosa: moist, Posterior pharynx: is normal, airway is patent, no erythema, no exudate. 16:05 Chest/axilla: Inspection: normal, Palpation: is normal, no crepitus, no tenderness. 16:05 Cardiovascular: Rate: normal, Rhythm: regular. 16:05 Respiratory: the patient does not display signs of respiratory distress, Respirations: normal, no use of accessory muscles, no retractions, labored breathing, is not present, Breath sounds: are clear throughout, no decreased breath sounds. 16:05 Abdomen/GI: Inspection: abdomen appears normal, Palpation: abdomen is soft and non-tender, in all quadrants. 16:05 Skin: injury, laceration(s), of the volar aspect of bilateral forearm, that can be described as linear, without bleeding, multiple. 16:07 ECG was reviewed by the Attending Physician. Vital Signs: 14:15 BP 121 / 73; Pulse 78; Resp 16; Temp 98.1; Pulse Ox 97% on R/A; iw 16:44 BP 135 / 70; Pulse 84; Resp 16; Temp 98.0; Pulse Ox 98% on R/A; iw 18:47 BP 121 / 70; Pulse 68; Resp 16; Temp 98.2; Pulse Ox 99% on R/A; Pain 0/10; iw MDM: 15:10 Patient medically screened. 15:35 Differential diagnosis: drug withdrawal. acute psychotic break, depression, psychosis cp secondary to non-compliance. 17:45 Data reviewed: vital signs, nurses notes, lab test result(s), EKG. 17:45 Test interpretation: by ED physician or midlevel provider: ECG. 18:28 Physician consultation: was contacted at 18:29, DR Carey \[facility] will accept cp patient for inpatient treatment. 02/03 15:11 Order name: Acetaminophen; Complete Time: 17:33 02/03 15:11 Order name: Basic Metabolic Panel; Complete Time: 17:33 02/03 17:33 Interpretation: Normal except: CL 109; GLUC 60; BUN 21; GFR 81. cp 02/03 15:11 Order name: CBC with Diff; Complete Time: 16:12 cp 02/03 16:12 Interpretation: Normal except: KARYN% 75.3. cp 02/03 15:11 Order name: ETOH Level; Complete Time: 16:12 cp 02/03 15:11 Order name: Hepatic Function; Complete Time: 17:33 cp 02/03 15:11 Order name: PT-INR; Complete Time: 16:12 cp 02/03 15:11 Order name: Ptt, Activated; Complete Time: 16:12 cp 02/03 15:11 Order name: Salicylate; Complete Time: 17:33 cp 02/03 15:11 Order name: Urine Drug Screen; Complete Time: 17:33 cp 02/03 17:34 Interpretation: Abnormal: BZO POSITIVE; KAY POSITIVE; METHAMPHETAMINE POSITIVE; THC cp POSITIVE. 02/03 15:31 Order name: Urine Dipstick--Ancillary (enter results) bd 02/03 15:11 Order name: EKG - Nurse/Tech; Complete Time: 16:49 cp 02/03 15:11 Order name: IV Saline Lock; Complete Time: 15:32 cp 02/03 15:11 Order name: Labs collected and sent; Complete Time: 15:32 cp 02/03 15:11 Order name: Urine Dipstick-Ancillary (obtain specimen); Complete Time: 15:25 cp 02/03 15:11 Order name: Urine Test (obtain specimen); Complete Time: 16:49 cp 02/03 15:39 Order name: Diet Regular; Complete Time: 15:40 ss EC:07 Rate is 72 beats/min. Rhythm is regular. OK interval is normal. QRS interval is normal. cp QT interval is normal. Interpreted by me. Reviewed by me. Administered Medications: 15:38 Drug: Tylenol 1000 mg Route: PO; ss 15:39 Drug: Zofran (Ondansetron) 4 mg Route: PO; ss 16:19 Drug: KeFLEX 500 mg Route: PO; iw 16:41 Drug: Ativan 0.5 mg Route: IVP; Site: right antecubital; iw 16:49 Drug: Topamax 50 mg Route: PO; iw Disposition: 02/04/20 18:34 Transfer ordered to [facility]. Diagnosis are Laceration without foreign body of left forearm - multiple, Laceration without foreign body of right forearm - multiple, Suicidal ideations, Urinary tract infection, site not specified. - Reason for transfer: Higher level of care. - Accepting physician is DR Carey. - Condition is Stable. - Problem is new. - Symptoms have improved. Addendum: 02/10/2020 02:25 Co-signature as Attending Physician, Srinivas Back MD. m a2 Signatures: Dispatcher [employer] Anali Sylvester RN RN iw Smirch, Shelby, RN RN ss Xiang Maddox, KALEE PA cp Srinivas Back MD MD al2 Corrections: (The following items were deleted from the chart) 02/03 17:34 17:34 Abnormal: BZO POSITIVE; KAY POSITIVE; METHAMPHETAMINE POSITIVE. cp 19:05 18:34 02/04/2020 18:34 Transfer ordered to [facility]. Diagnosis is Laceration iw without foreign body of left forearm - multiple; Laceration without foreign body of right forearm - multiple; Suicidal ideations; Urinary tract infection, site not specified. Reason for transfer: Higher level of care. Accepting physician is DR Carey. Condition is Stable. Problem is new. Symptoms have improved. cp
--- NOTE | 2020-02-04 18:35 | ER ---
Nurse's Notes [facility] Name: Shaista Awad Age: 59 yrs Sex: Female : 1960 Arrival Date: 02/04/2020 Time: 14:06 Bed 14 Private MD: Diagnosis: Laceration without foreign body of left forearm-multiple;Laceration without foreign body of right forearm-multiple;Suicidal ideations;Urinary tract infection, site not specified Presentation: 02/03 14:15 Chief complaint: Patient states: called 911 because she had a migraine, got upset iw because her boyfriend wouldn't help her get migraine medicine, has been off crack and meth x 2 days, [place] PD arrived to her house and noticied she had deep laceration to niru arms, pt states she did it 2 days ago bc she was upset that her boyfriend kicked her out and she didn't want to live anymore, pt states she has not been taking her meds as prescribed, takes BuSpar, Depakote, risperidone, trazodone. pt denies having thoughts of killing herself now, pt states she is having visual hallucinations of people having sex. Coronavirus screen: Proceed with normal triage. Ebola Screen: Patient negative for fever greater than or equal to 101.5 degrees Fahrenheit, and additional compatible Ebola Virus Disease symptoms Patient denies exposure to infectious person. Patient denies travel to an Ebola-affected area in the 21 days before illness onset. No symptoms or risks identified at this time. Initial Sepsis Screen: Does the patient meet any 2 criteria? No. Patient's initial sepsis screen is negative. Does the patient have a suspected source of infection? No. Patient's initial sepsis screen is negative. Onset of symptoms was February 04, 2020. 14:15 Method Of Arrival: Law Enforcement: Alpa BRUNO iw 14:15 Acuity: CHANI 2 iw 14:15 Risk Assessment: Do you want to hurt yourself or someone else? Patient reports iw desire/thoughts of hurting themselves or someone else. Provider notified. Historical: - Allergies: 14:21 No Known Allergies; iw - PMHx: 14:21 Anxiety; Bipolar disorder; drug abuse; peptic ulcer; previous suicide attempt; iw ADD/ADHD; Anemia; - PSHx: 14:21 Tubal ligation; throat tumor removal; iw - Immunization history:: Adult Immunizations unknown. - Social history:: Smoking status: Patient uses street drugs, cocaine, Methamphetamine (Meth). Screenin:45 Abuse screen: Denies threats or abuse. Denies injuries from another. Nutritional iw screening: No deficits noted. Tuberculosis screening: No symptoms or risk factors identified. Fall Risk IV access (20 points). Assessment: 14:15 General: Appears distressed, Behavior is agitated, anxious, crying. Pain: Denies pain. iw Neuro: Level of Consciousness is awake, alert, obeys commands, Oriented to person, place, time, situation, Moves all extremities. Cardiovascular: Patient's skin is warm and dry. Respiratory: Respiratory effort is even, unlabored, Respiratory pattern is regular, symmetrical. GI: No signs and/or symptoms were reported involving the gastrointestinal system. Derm: Skin is dry, Skin is pink, warm \\T\\ dry. Musculoskeletal: Range of motion: intact in all extremities. Injury Description: Laceration sustained to dorsal aspect of left forearm is 2.6 to 7.5 cm long, not bleeding, healing wound, occurred 2 days ago, self-inflicted with maricruz box repairer was sustained 2 days ago. Injury Description: Laceration sustained to dorsal aspect of right forearm is superficial, 2.6 to 7.5 cm long, was sustained 2 days ago. no active bleeding noted at this time. 14:48 General: Appears in no apparent distress. Behavior is calm. iw 16:42 Reassessment: pt screaming states "he's gonna kick me out and I won't have anywhere to iw go, I'm gonna be homeless, I dont know what I'm gonna do" pt continues crying, pt given verbal reassurance, KALEE Choudhury notified new orders given for ativan 0.5 mg IVP, given now, pt given her food tray, states "I will take pills or do whatever I have to do to end this because he's not gonna let me see my grandkids and I don't have anywhere else to go". 16:47 Reassessment: pt now calm, cooperative, eating food. iw 17:00 Reassessment: Patient appears in no apparent distress at this time. pt appears to be iw sleeping , respirations even and unlabored. 17:52 Reassessment: Patient appears in no apparent distress at this time. report given to pascual Brand RN at [facility]. 18:39 Reassessment: Patient appears in no apparent distress at this time. No changes from iw previously documented assessment. Psych: 14:15 Subjective: Patient's mood is angry, irritable, Delusions are Hallucinations are iw visual. Objective: Patient is cooperative, defensive, irritable, Speech is loud, rambling, Affect is inappropriate, Patient has mutilated themselves by healing wounds to RFA and LFA, self inflected lacerations. Safety Checks: Personal items have not been removed. Door is closed to patient's room. No visitors are present at this time. 19:05 Interventions: Removed personal items and placed in bag. Suicide Risk Assessment: Sad Person Scale: Sex of patient: Female: Score 0 points. Patient uses cocaine, Patient uses methamphetamines. Commitment: Patient will be a voluntary commitment. Vital Signs: 14:15 BP 121 / 73; Pulse 78; Resp 16; Temp 98.1; Pulse Ox 97% on R/A; iw 16:44 BP 135 / 70; Pulse 84; Resp 16; Temp 98.0; Pulse Ox 98% on R/A; iw 18:47 BP 121 / 70; Pulse 68; Resp 16; Temp 98.2; Pulse Ox 99% on R/A; Pain 0/10; iw ED Course: 14:06 Patient arrived in ED. iw 14:15 Anali Aggarwal, RN is Primary Nurse. iw 14:20 Triage completed. iw 14:21 Arm band placed on. iw 14:25 Patient has correct armband on for positive identification. iw 14:50 Xiang Maddox PA is PHCP. cp 14:50 Srinivas Back MD is Attending Physician. cp 15:32 Initial lab(s) drawn, by me, sent to lab. Inserted saline lock: 20 gauge in right em1 antecubital area, using aseptic technique. Blood collected. 17:20 faxed chart to [facility]. bd 19:05 No provider procedures requiring assistance completed. IV discontinued, intact, iw bleeding controlled, No redness/swelling at site. Pressure dressing applied. Administered Medications: 15:38 Drug: Tylenol 1000 mg Route: PO; ss 15:39 Drug: Zofran (Ondansetron) 4 mg Route: PO; ss 16:19 Drug: KeFLEX 500 mg Route: PO; iw 16:41 Drug: Ativan 0.5 mg Route: IVP; Site: right antecubital; iw 16:49 Drug: Topamax 50 mg Route: PO; iw Outcome: 18:34 ER care complete, transfer ordered by MD. stuart 19:04 Transferred by ground EMS [facility] . to other acute care facility: [facility] . iw Transfer form completed. X-rays sent w/ patient. 19:04 Condition: good 19:04 Discharge instructions given to patient, Instructed on the need for transfer, Demonstrated understanding of instructions. 19:04 Condition: belongings sent with patient iw 19:05 Patient left the ED. iw Signatures: Emmanuelle Mullins Irene, RN RN iw Miguel Angel, Juan Carlos em1 Vicenta Jean Baptiste RN RN ss Xiang Maddox PA PA cp Corrections: (The following items were deleted from the chart) 14:24 14:15 Chief complaint: Patient states: called 911 because she had a migraine, got upset iw because her boyfriend wouldn't help her get migraine medicine, has been off crack and meth x 2 days, [place] PD arrived to her house and noticied she had deep laceration to nil arms, pt states she did it 2 days ago bc she was upset that her boyfriend kicked her out and she didn't want to live anymore, pt states she has not been taking her meds as prescribed, takes BuSpar, Depakote, risperidone, trazodone iw
[2020-02-04 18:48] LABS: Urine Blood TRACE (NEG); Urine Glucose NEGATIVE (NEG); Urine Protein 1+ (NEG); Urine Specific Gravity >1.030 (1.005-1.030)
[2020-02-04 19:16] VITALS: BP 121/70; TEMP 98.2; O2SAT 99
== END 2020-02-04 19:05 ==
LOC: ER 13:58
DX: S51.812A Laceration without foreign body of left forearm, initial encounter (principal); S51.811A Laceration without foreign body of right forearm, initial encounter; X78.9XXA Intentional self-harm by unspecified sharp object, initial encounter; N39.0 Urinary tract infection, site not specified
CPT/HCPCS: 36415; 80048; 80076; 80307; 80320; 80329; 81003; 85025; 85610; 85730; 93005; 96374; 99285

== ENCOUNTER 2020-07-23 08:44 | Emergency (ER) | payer OTHER ==
[2020-07-23] MEDS ORDERED: DIAZEPAM 10 MG/2 ML INJ SYRINGE ONE (11:51)
[2020-07-23 11:58] LABS: BUN Blood Urea Nitrogen 21 mg/dL (7-18); Bicarbonate 27 mmol/L (21-32); Glucose Level 110 mg/dL (74-106); Potassium 3.6 mmol/L (3.5-5.1); Sodium Level 144 mmol/L (136-145)
[2020-07-23 12:07] LABS: Lymphocytes % 14.6 % (15.3-44.8); MPV 8.7 fL (7.6-11.3); RBC Red Blood Cell Count 4.47 M/uL (3.86-4.86)
[2020-07-23 12:08] LABS: Absolute Lymphocytes (CBC) 1.1 K/uL (0.7-4.9); Basophils % 0.6 % (0-1.3)
--- NOTE | 2020-07-23 12:10 | EDPHYS ---
Physician Documentation [facility] Name: Shaista Awad Age: 60 yrs Sex: Female : 1960 Arrival Date: 07/23/2020 Time: 08:46 Bed 20 Private MD: ED Physician Srinivas Back HPI: 07/23 12:07 This 60 yrs old Female presents to ER via Ambulatory with complaints of Psych ma2 Problem. 12:07 The patient presents to the emergency department with anxiety. Onset: The ma2 symptoms/episode began/occurred gradually, 1 week(s) ago. Associated signs and symptoms: Pertinent negatives: chest pain, delusions, depression, hallucinations, headache. Severity of symptoms: At their worst the symptoms were moderate in the emergency department the symptoms are unchanged. The patient has experienced similar episodes in the past. Historical: - Allergies: 08:56 No Known Allergies; hb - PMHx: 08:56 ADD/ADHD; Anemia; Anxiety; Bipolar disorder; drug abuse; peptic ulcer; previous suicide hb attempt; - PSHx: 08:56 Tubal ligation; throat tumor removal; hb - Immunization history:: Adult Immunizations up to date. - Social history:: Smoking status: Patient reports the use of cigarette tobacco products, smokes one pack cigarettes per day. Patient uses street drugs, marijuana, Methamphetamine (Meth) Patient uses street drugs, The patient lives with family. - Family history:: not pertinent. ROS: 12:07 Constitutional: Negative for fever, chills, and weight loss. ma2 12:07 All other systems are negative. Exam: 12:07 Constitutional: This is a well developed, well nourished patient who is awake, alert, ma2 and in no acute distress. Head/Face: Normocephalic, atraumatic. Eyes: Pupils equal round and reactive to light, extra-ocular motions intact. Lids and lashes normal. Conjunctiva and sclera are non-icteric and not injected. Cornea within normal limits. Periorbital areas with no swelling, redness, or edema. ENT: Nares patent. No nasal discharge, no septal abnormalities noted. Tympanic membranes are normal and external auditory canals are clear. Oropharynx with no redness, swelling, or masses, exudates, or evidence of obstruction, uvula midline. Mucous membranes moist. Neck: Trachea midline, no thyromegaly or masses palpated, and no cervical lymphadenopathy. Supple, full range of motion without nuchal rigidity, or vertebral point tenderness. No Meningismus. Chest/axilla: Normal chest wall appearance and motion. Nontender with no deformity. No lesions are appreciated. Cardiovascular: Regular rate and rhythm with a normal S1 and S2. No gallops, murmurs, or rubs. Normal PMI, no JVD. No pulse deficits. Respiratory: Lungs have equal breath sounds bilaterally, clear to auscultation and percussion. No rales, rhonchi or wheezes noted. No increased work of breathing, no retractions or nasal flaring. Abdomen/GI: Soft, non-tender, with normal bowel sounds. No distension or tympany. No guarding or rebound. No evidence of tenderness throughout. MS/ Extremity: Pulses equal, no cyanosis. Neurovascular intact. Full, normal range of motion. Neuro: Awake and alert, GCS 15, oriented to person, place, time, and situation. Cranial nerves II-XII grossly intact. Motor strength 5/5 in all extremities. Sensory grossly intact. Cerebellar exam normal. Normal gait. 12:07 Psych: Behavior/mood is anxious, Affect is animated, Oriented to person, place, time, Patient has no thoughts/intents to harm self or others. Judgement / Insight is normal. Memory is normal. Delusions/hallucinations are not present. Vital Signs: 08:54 BP 170 / 103; Pulse 133; Resp 18; Temp 97.2; Pulse Ox 100% on R/A; Pain 6/10; hb 11:47 BP 140 / 86; Pulse 108; Resp 14; Pulse Ox 96% on R/A; ph 13:00 BP 132 / 87; Pulse 97; Resp 18; Pulse Ox 97% on R/A; ph 14:00 BP 147 / 94; Pulse 101; Resp 18; Temp 97.5; Pulse Ox 99% on R/A; ph MDM: 10:03 Patient medically screened. ma2 12:07 Differential diagnosis: drug withdrawal. acute psychotic break, depression, psychosis ma2 secondary to non-compliance. Data reviewed: vital signs, nurses notes. Counseling: I had a detailed discussion with the patient and/or guardian regarding: the historical points, exam findings, and any diagnostic results supporting the discharge/admit diagnosis, the presence of at least one elevated blood pressure reading (>120/80) during this emergency department visit, the need for outpatient follow up. Response to treatment: the patient's symptoms have markedly improved after treatment. 07/23 10:04 Order name: Acetaminophen; Complete Time: 12:10 ma2 07/23 10:04 Order name: Basic Metabolic Panel or2 07/23 10:04 Order name: CBC with Diff ma2 07/23 10:04 Order name: ETOH Level or2 07/23 10:04 Order name: Hepatic Function or2 07/23 10:04 Order name: PT-INR or2 07/23 10:04 Order name: Ptt, Activated ma2 07/23 10:04 Order name: Salicylate or2 07/23 12:01 Order name: Basic Metabolic Panel; Complete Time: 12:10 EDMS 07/23 12:13 Order name: Protime (+INR) EDMS 07/23 12:13 Order name: PTT, Activated Partial Thromb EDMS 07/23 12:15 Order name: Alcohol Serum/Plasma EDMS 07/23 12:18 Order name: Salicylates Level EDMS 07/23 10:04 Order name: EKG; Complete Time: 10:05 or2 07/23 10:04 Order name: EKG - Nurse/Tech; Complete Time: 11:47 or2 07/23 10:04 Order name: IV Saline Lock; Complete Time: 11:33 or2 07/23 10:04 Order name: Labs collected and sent; Complete Time: 11:33 or2 07/23 12:20 Order name: Liver (Hepatic) Function EDMS 07/23 12:49 Order name: CBC with Automated Diff EDMS Administered Medications: 11:46 Drug: Valium 10 mg Route: IVP; Site: left antecubital; ph 12:30 Follow up: Response: No adverse reaction; RASS: Moderate sedation (-3) ph Disposition: 07/23/20 12:09 Discharged to Home. Impression: Anxiety disorder, unspecified. - Condition is Stable. - Discharge Instructions: Stimulant Use Disorder-Methamphetamines, Generalized Anxiety Disorder. - Prescriptions for buspirone 5 mg Oral tablet - take 1 tablet by ORAL route 3 times per day; 50 tablet. - Medication Reconciliation Form, Thank You Letter, Antibiotic Education, Prescription Opioid Use form. - Follow up: Private Physician; When: Tomorrow; Reason: Continuance of care. Signatures: Dispatcher [employer] Sonia Clements RN RN ph Baxter, Heather, RN RN Srinivas Back MD MD ma2 Corrections: (The following items were deleted from the chart) 14:05 12:09 07/23/2020 12:09 Discharged to Home. Impression: Anxiety disorder, unspecified. ph Condition is Stable. Discharge Instructions: Stimulant Use Disorder-Methamphetamines, Generalized Anxiety Disorder. Prescriptions for buspirone 5 mg Oral tablet - take 1 tablet by ORAL route 3 times per day; 50 tablet. and Forms are Medication Reconciliation Form, Thank You Letter, Antibiotic Education, Prescription Opioid Use. Follow up: Private Physician; When: Tomorrow; Reason: Continuance of care. ma2
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
[2020-07-23 12:20] LABS: ALT/SGPT 20 U/L (12-78); AST/SGOT 13 U/L (15-37); Albumin 4.3 g/dL (3.4-5.0); Alkaline Phosphatase 108 U/L (45-117); Bilirubin Direct < 0.1 mg/dL (0-0.2); Bilirubin Total 0.4 mg/dL (0.2-1.0); Protein, Total 8.2 g/dL (6.4-8.2)
--- OUTSIDE RECORDS SUMMARY | 2020-07-23 14:02 | XMS REPORT | Continuity of Care Document ---
:1960 Author Organization Formerly [facility] t Address [address] [place] [address] Care Team Providers Name Role Phone Shannon [...] Department ID 2019-04-09 2019-04-10 Emergency Trace Lai [facility] [id number] 22:02:28 01:42:00 Shannon Cook [id number] [place] [id number] [place] [phone] Results This patient has no known results.
--- NOTE | 2020-07-24 11:00 | EKG ---
Test Date: 2020-07-23 Test Time: 11:49:00 Mass Communications Instructor: BRYON MEASUREMENT RESULTS: Intervals: Rate: 110 MD: 132 QRSD: 88 QT: 362 QTc: 489 [place]: P: 62 MD: 132 QRS: 66 T: 66 INTERPRETIVE STATEMENTS: Sinus tachycardia Otherwise normal ECG Compared to ECG 02/04/2020 15:46:36 Sinus rhythm no longer present Myocardial infarct finding no longer present Electronically Signed On 07-24-20 10:56:39 MULTIFOCAL BUTTON INSPECTOR by Crow Philippe
== END 2020-07-23 14:05 | disposition home or self-care (01) ==
LOC: ER 08:44
DX: F41.9 Anxiety disorder, unspecified (principal); F17.210 Nicotine dependence, cigarettes, uncomplicated
CPT/HCPCS: 93005; 85025; 80048; 36415; 80320; 80329 ×2; 85610; 80076; 85730; 96374; 99284; J3360

== ENCOUNTER 2021-02-08 12:40 | Emergency (ER) | payer OTHER ==
[2021-02-08 14:00] LABS: Absolute Lymphocytes (CBC) 1.4 K/uL (0.7-4.9); Basophils % 1.3 % (0-1.3); Hematocrit 35.4 % (36.0-45.0); Lymphocytes % 38.2 % (15.3-44.8); MPV 8.6 fL (7.6-11.3); RBC Red Blood Cell Count 4.11 M/uL (3.86-4.86)
[2021-02-08 14:10] LABS: Protime INR 0.99
[2021-02-08 14:15] LABS: Urine Blood Negative (Negative); Urine Glucose Negative (Negative); Urine Protein Trace (Negative); Urine Specific Gravity >=1.030 (1.005-1.030); Urine pH 5.5 (5.0-7.0)
[2021-02-08 14:27] LABS: ALT/SGPT 19 U/L (12-78); AST/SGOT 16 U/L (15-37); Albumin 3.9 g/dL (3.4-5.0); Alkaline Phosphatase 84 U/L (45-117); BUN Blood Urea Nitrogen 16 mg/dL (7-18); Bicarbonate 25 mmol/L (21-32); Bilirubin Direct < 0.1 mg/dL (0-0.2); Bilirubin Total 0.2 mg/dL (0.2-1.0); Glucose Level 99 mg/dL (74-106); Potassium 3.5 mmol/L (3.5-5.1); Protein, Total 7.1 g/dL (6.4-8.2); Sodium Level 143 mmol/L (136-145)
[2021-02-08 14:47] LABS: Barbiturates NEGATIVE (NEGATIVE); Benzodiazepines NEGATIVE (NEGATIVE); Cocaine POSITIVE (NEGATIVE); METHAMPHETAM POSITIVE (NEGATIVE); Methadone NEGATIVE (NEGATIVE); Opiates NEGATIVE (NEGATIVE); Phencyclidine NEGATIVE (NEGATIVE); THC Cannibis POSITIVE (NEGATIVE)
--- NOTE | 2021-02-08 15:19 | EDPHYS ---
Physician Documentation [facility] Name: Shaista Awad Age: 60 yrs Sex: Female : 1960 Arrival Date: 02/08/2021 Time: 12:53 Bed 15 Private MD: ED Physician Xiang Paige HPI: 02/08 13:59 This 60 yrs old Female presents to ER via Ambulatory with complaints of Psych pm1 Problem, Suicidal Ideation. 13:59 The patient presents to the emergency department with depression, over a relationship, pm1 has had a recent break-up, a history of substance abuse. Onset: The symptoms/episode began/occurred 2 day(s) ago. Past psychiatric history: Prior diagnosis: addiction history, methamphetamines, bipolar disorder, Psychiatric medications include: none, Primary psychiatric physician: Dr. Ronn cunha. Associated signs and symptoms: The patient has no apparent associated signs or symptoms. Severity of symptoms: in the emergency department the symptoms. The patient has not recently seen a physician. Patient's of 20 years left her. Historical: - Allergies: 13:09 No Known Allergies; iw - PMHx: 13:09 ADD/ADHD; Anemia; Anxiety; Bipolar disorder; drug abuse; peptic ulcer; iw - PSHx: 13:09 Tubal ligation; throat tumor removal; iw - Immunization history:: Adult Immunizations unknown. - Social history:: Smoking status: Patient reports the use of cigarette tobacco products, smokes one pack cigarettes per day. Patient uses alcohol, weekly. street drugs, Methamphetamine (Meth). ROS: 13:59 Constitutional: Negative for fever, chills, and weight loss, Cardiovascular: Negative pm1 for chest pain, palpitations, and edema, Respiratory: Negative for shortness of breath, cough, wheezing, and pleuritic chest pain, Abdomen/GI: Negative for abdominal pain, nausea, vomiting, diarrhea, and constipation, MS/Extremity: Negative for injury and deformity, Skin: Negative for injury, rash, and discoloration, Neuro: Negative for headache, weakness, numbness, tingling, and seizure. 13:59 Psych: Positive for depression, drug dependence, suicidal ideation, Negative for homicidal ideation. Exam: 13:59 Constitutional: This is a well developed, well nourished patient who is awake, alert, pm1 and in no acute distress. Head/Face: Normocephalic, atraumatic. 13:59 Back: No spinal tenderness. No costovertebral tenderness. Full range of motion. Skin: Warm, dry with normal turgor. Normal color with no rashes, no lesions, and no evidence of cellulitis. MS/ Extremity: Pulses equal, no cyanosis. Neurovascular intact. Full, normal range of motion. 13:59 Eyes: Exam is negative for acute changes, Extraocular movements: no acute changes, Conjunctiva: no acute changes, no injection, Sclera: no acute changes, icterus, is not appreciated. 13:59 Cardiovascular: Exam negative for acute changes, Rate: normal, Rhythm: regular, Pulses: no pulse deficits are appreciated. 13:59 Respiratory: Exam negative for acute changes, respiratory distress, shortness of breath. 13:59 Abdomen/GI: Exam negative for acute changes, Inspection: abdomen appears normal, Palpation: abdomen is soft and non-tender, in all quadrants. 13:59 Neuro: Exam negative for acute changes, Orientation: is normal, Mentation: is normal, Motor: is normal, moves all fours. Vital Signs: 13:03 Weight 54.43 kg; Height 5 ft. 4 in. (162.56 cm); iw 13:30 BP 126 / 87; Pulse 100; Resp 18 S; Temp 98.3; Pulse Ox 100% on R/A; ca1 13:03 Body Mass Index 20.60 (54.43 kg, 162.56 cm) iw MDM: 13:17 Patient medically screened. pm1 15:17 Counseling: I had a detailed discussion with the patient and/or guardian regarding: the pm1 historical points, exam findings, and any diagnostic results supporting the discharge/admit diagnosis, lab results. 15:17 ED course: Patient denies suicidal ideation. She is worried about her living situation pm1 since her left her for another woman. 15:17 Data reviewed: vital signs. pm1 02/08 13:09 Order name: Acetaminophen pm1 02/08 13:09 Order name: Basic Metabolic Panel; Complete Time: 14:49 pm1 02/08 13:09 Order name: CBC with Diff; Complete Time: 14:49 pm1 02/08 13:09 Order name: ETOH Level; Complete Time: 14:49 pm1 02/08 13:09 Order name: Hepatic Function; Complete Time: 14:49 pm1 02/08 13:09 Order name: PT-INR; Complete Time: 14:49 pm1 02/08 13:09 Order name: Ptt, Activated; Complete Time: 14:49 pm1 02/08 13:09 Order name: Salicylate; Complete Time: 14:49 pm1 02/08 13:09 Order name: Urine Drug Screen; Complete Time: 14:49 pm1 02/08 13:09 Order name: EKG; Complete Time: 13:10 pm1 02/08 13:09 Order name: Acetaminophen Level; Complete Time: 14:49 EDMS 02/08 14:14 Order name: Urine Dipstick-Ancillary; Complete Time: 14:49 EDMS 02/08 14:26 Order name: Urine --Ancillary (enter results) eb 02/08 14:26 Order name: Urine --Ancillary; Complete Time: 15:11 EDMS 02/08 13:09 Order name: EKG - Nurse/Tech; Complete Time: 13:54 pm1 02/08 13:09 Order name: IV Saline Lock; Complete Time: 13:54 pm1 02/08 13:09 Order name: Labs collected and sent; Complete Time: 13:54 pm1 02/08 13:09 Order name: Suicide Screening ([place]); Complete Time: 17:28 pm1 02/08 13:09 Order name: Urine Dipstick-Ancillary (obtain specimen); Complete Time: 14:14 pm1 Administered Medications: No medications were administered Disposition: 02/08/21 15:19 Discharged to Home. Impression: Acute stress reaction. - Condition is Stable. - Discharge Instructions: Stress and Stress Management. - Medication Reconciliation Form, Thank You Letter, Antibiotic Education, Prescription Opioid Use form. - Follow up: Emergency Department; When: As needed; Reason: Worsening of condition. Follow up: Private Physician; When: 2 - 3 days; Reason: Recheck today's complaints, Continuance of care, Re-evaluation by your physician. - Problem is new. - Symptoms have improved. Signatures: Dispatcher [employer] EDAnali Garcia RN RN iw Marinas, Patrick, [employer] OFFICER pm1 Summer Morrison RN RN ca1 Corrections: (The following items were deleted from the chart) 18:14 15:19 02/08/2021 15:19 Discharged to Home. Impression: Acute stress reaction. Condition ca1 is Stable. Forms are Medication Reconciliation Form, Thank You Letter, Antibiotic Education, Prescription Opioid Use. Follow up: Emergency Department; When: As needed; Reason: Worsening of condition. Follow up: Private Physician; When: 2 - 3 days; Reason: Recheck today's complaints, Continuance of care, Re-evaluation by your physician. Problem is new. Symptoms have improved. pm1
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
[2021-02-08 18:18] VITALS: BP 126/87; TEMP 98.3; O2SAT 100
--- NOTE | 2021-02-09 15:51 | EKG ---
Test Date: 2021-02-08 Test Time: 13:53:04 [facility]: VERÓNICA MEASUREMENT RESULTS: Intervals: Rate: 99 SC: 122 QRSD: 82 QT: 370 QTc: 474 [place]: P: 67 SC: 122 QRS: 89 T: 71 INTERPRETIVE STATEMENTS: Normal sinus rhythm with sinus arrhythmia Normal ECG Compared to ECG 07/23/2020 11:49:00 Sinus tachycardia no longer present Electronically Signed On 02-09-21 15:47:18 CDT by Crow Philippe
== END 2021-02-08 18:14 | disposition home or self-care (01) ==
LOC: ER 12:40
DX: F43.0 Acute stress reaction (principal); F90.9 Attention-deficit hyperactivity disorder, unspecified type; F41.9 Anxiety disorder, unspecified; F31.9 Bipolar disorder, unspecified; F17.210 Nicotine dependence, cigarettes, uncomplicated
CPT/HCPCS: 36415; 80048; 80076; 80307; 80320; 80329; 81003; 81025; 85025; 85610; 85730; 93005; 99284

== ENCOUNTER → 2021-02-08 | Emergency (ER) | payer OTHER ==
[~2021-02-08] MED LIST: ACETAMINOPHEN 500 MG TAB ONE
--- OUTSIDE RECORDS SUMMARY | 2021-02-08 23:34 | XMS REPORT | Continuity of Care Document ---
:1960 Author Organization [facility] t Address [address] [place] [address] Dr. Moura [address] [place] [address] Care Team Providers Name Role Phone Asked, Pcp Primary Care Physician Unavailable Ivan Wilson MD Attending Clinician MD IVAN WILSON Attending Clinician Unavailable MD IVAN WILSON Admitting Clinician Unavailable Payers Payer Name Policy Policy Effective Expiration Source Type Number Date Date AMERIGROUPAMERIGROUP [id number] 2019 Mary Kate urbano STAR+PLUS 00:00:00 Muslim [id number] 2019-Pres entHMO Problems This patient has no known problems. Allergies, Adverse Reactions, Alerts This patient has no known allergies or adverse reactions. Social History Social Habit Start Date Stop Date Quantity Comments Source Sex Assigned At [birth year] Dmitry Shankar ethodist 00:00:00 00:00:00 Medications This patient has no known medications. Vital Signs Vital Name Observation Time Observation Value Comments Source Systolic blood 2020-10-04 08:55:00 132 mm[Hg] Mary Kateto n Muslim pressure Diastolic blood 2020-10-04 08:55:00 72 mm[Hg] Adwoa on Muslim pressure Heart rate 2020-10-04 08:55:00 102 /min Dmitry Carbajal Body temperature 2020-10-04 08:55:00 36.78 Georgie Mary Kate ton Muslim Respiratory rate 2020-10-04 08:55:00 18 /min Mary Kate Carbajal Oxygen saturation in 2020-10-04 08:55:00 97 /min Dmitry Carbajal Arterial blood by Pulse oximetry Body weight 2020-10-02 12:40:00 58.968 kg Dmitry Carbajal BMI 2020-10-02 12:40:00 22.31 kg/m2 Dmitry Carbajal Body height 2020-10-02 12:40:00 162.6 cm Dmitry Carbajal Procedures Procedure Date / Time Performed Performing Clinician Sourc e CT ABDOMEN PELVIS W 2020-10-02 15:22:01 Aristeo Wilson CONTRAST URINE CULTURE 2020-10-02 14:21:00 Aristeo Wilson HC COMPLETE BLD COUNT 2020-10-02 13:27:00 Aristeo Wilson W/AUTO DIFF COMPREHENSIVE METABOLIC 2020-10-02 13:27:00 Aristeo Wilson PANEL CREATINE KINASE, TOTAL 2020-10-02 13:27:00 Aristeo Wilson (CPK) THYROID STIMULATING 2020-10-02 13:27:00 Aristeo Wilson HORMONE T4, FREE 2020-10-02 13:27:00 Aristeo Wilson ALCOHOL LEVEL, BLOOD 2020-10-02 13:27:00 Aristeo Wilson SALICYLATE LEVEL 2020-10-02 13:27:00 Aristeo Wilson URINE DRUGS OF ABUSE 2020-10-02 13:27:00 Aristeo Wilson SCREEN URINALYSIS SCREEN AND 2020-10-02 13:27:00 Aristeo Wilson MICROSCOPY, WITH REFLEX TO CULTURE ESTIMATED GFR 2020-10-02 13:27:00 Aristeo Wilson COVID-19 QUALITATIVE PCR 2020-10-02 13:13:00 Aristeo Wilson Plan of Care Planned Activity Planned Date Details Comments Source Future Scheduled 2021-03-15 INFLUENZA VACCINE Efra Carbajal Test 00:00:00 [code = INFLUENZA VACCINE] Future Scheduled 2011 BREAST CANCER Dmitry Valdez thodist Test 00:00:00 SCREENING [code = BREAST CANCER SCREENING] Future Scheduled 2011 COLONOSCOPY SCREENING Brody Carbajal Test 00:00:00 [code = COLONOSCOPY SCREENING] Future Scheduled 2011 SHINGLES VACCINES [place] n Muslim Test 00:00:00 (#1) [code = SHINGLES VACCINES (#1)] Future Scheduled 1982 Screening for Andres Me thodist Test 00:00:00 malignant neoplasm of cervix (procedure) [code = 718208062] Future Scheduled 1979 Hepatitis C screening Ho carolyn Muslim Test 00:00:00 (procedure) [code = 871010113] Future Scheduled 1973 COVID-19 VACCINE (1) Darlenedane otoole Muslim Test 00:00:00 [code = COVID-19 VACCINE (1)] Encounters Start End Encounter Admission Attending Care Care Encounter Source Date/Time Date/Time Type Type Clinicians Facility Department ID 2020-10-02 2020-10-04 Emergency [facility] [id number] [place] 00:00:00 00:00:[address] Results Test Description Test Time Test Comments Results Result Comments Source Urine culture 2020-10-03 17:19:34 Test Item Value Reference Range Interpretation Comme nts Urine culture isolate Mixed meghana <=10-3 Specimen InformationSpecimen (test code = 67530-1) col/cc Source : UrineSpecimen Site: Clean catch [facility] Abdomen Pelvis W [id number] 15:30:45Hm Interface, Radiology Results 10/02/2020 3:33 PM CST EXAMINATION: CT ABDOMEN PELVIS W CONTRASTCLINICAL HISTORY: abd painTECHNIQUE: Multiple axial images of the abdomen and pelvis were obtained following intravenous administration of iodinated contrast. Sagittal and coronal computerized reformatted images were also obtained.CTscans are performed using radiation dose reduction techniques. Technical factors are evaluated and adjusted to ensure appropriate moderation of exposure. Automated dose management technology is appliedto adjust radiation exposure while achieving a diagnostic quality image.COMPARISON: NoneFINDINGS:There are multiple calcified granulomas within the spleen. The adrenal glands, pancreas, and gallbladder are normal. Liver is mildly enlarged with the long axis of the right lobe measuring approximately 20 cm. A small 3-4 mm hypodense mass within the medial left lobe is too small to characterize.There isno hydronephrosis. The kidneys are normal.The abdominal aorta is normal in caliber. There is no lymphadenopathy. There is no ascites.The appendix is normal. There are no inflammatory changes around thelarger small bowel.Bladder is partially distended with urine. No pelvic mass or pelvic lymphadenopathy is present.Atelectasis is present within the lung bases.There are degenerative changes within the lower thoracic and lumbosacral spine. Old healed right ninth and tenth posterior rib fractures are noted.IMPRESSION:1.No acute findings.2.Mild hepatomegaly.[facility]-[id number] Memorial HospitalSpqgvikpqZCIZ-BxC-7 (COVID- 19) RNA [Presence] in Respiratory specimen by VIC with probe [id number] 15:25:22 Test Item Value Reference Range Interpretation Comments SARS-CoV-2 (COVID-19) RNA Not detected Not-Detected [Presence] in Respiratory specimen by VIC with probe detection (test code = 62210-6)
== END ==
LOC: ER 23:31
DX: R69 Illness, unspecified (principal); Z53.21 Procedure and treatment not carried out due to patient leaving prior to being seen by health care provider

== ENCOUNTER 2021-05-04 19:16 | Emergency (ER) | payer OTHER ==
[2021-05-04] MEDS ORDERED: NA CHLORIDE 0.9% 1,000 ML ONE (22:40)
[2021-05-04 23:21] LABS: Absolute Lymphocytes (CBC) 1.9 K/uL (0.7-4.9); Basophils % 0.9 % (0-1.3); Hematocrit 34.4 % (36.0-45.0); Lymphocytes % 39.9 % (15.3-44.8); MPV 8.2 fL (7.6-11.3); RBC Red Blood Cell Count 3.92 M/uL (3.86-4.86)
[2021-05-04 23:31] LABS: Urine Blood Negative (Negative); Urine Glucose Negative (Negative); Urine Protein Negative (Negative); Urine Specific Gravity 1.025 (1.005-1.030)
[2021-05-04] MEDS ORDERED: LORazepam 2 MG/ML VIAL ONE (23:34)
[2021-05-04 23:41] LABS: ALT/SGPT 13 U/L (12-78); AST/SGOT 8 U/L (15-37); Albumin 3.5 g/dL (3.4-5.0); Alkaline Phosphatase 98 U/L (45-117); BUN Blood Urea Nitrogen 12 mg/dL (7-18); Bicarbonate 25 mmol/L (21-32); Bilirubin Direct < 0.1 mg/dL (0-0.2); Bilirubin Total 0.2 mg/dL (0.2-1.0); Glucose Level 87 mg/dL (74-106); Potassium 4.3 mmol/L (3.5-5.1); Protein, Total 6.7 g/dL (6.4-8.2); Sodium Level 145 mmol/L (136-145)
[2021-05-04 23:41] LABS: Barbiturates NEGATIVE (NEGATIVE); Benzodiazepines NEGATIVE (NEGATIVE); Cocaine NEGATIVE (NEGATIVE); METHAMPHETAM POSITIVE (NEGATIVE); Methadone NEGATIVE (NEGATIVE); Opiates NEGATIVE (NEGATIVE); Phencyclidine NEGATIVE (NEGATIVE); THC Cannibis POSITIVE (NEGATIVE)
--- NOTE | 2021-05-05 00:57 | ER ---
Nurse's Notes [facility] Name: Shaista Awad Age: 60 yrs Sex: Female : 1960 Arrival Date: 05/04/2021 Time: 19:18 Bed 14 Private MD: Diagnosis: Bipolar disorder, current episode depressed, moderate;Adverse effect of amphetamines;Abuse of other non-psychoactive substances-methamphtamines Presentation: 05/04 20:30 Chief complaint: Patient states: PT states she hasn't been on her bipolar meds and is wg very anxious. Pt very tearful in triage. Pt states she is a meth addict and feels like she is going through withdrawal. Pt states used meth this AM. Pt states she has been hallucinating. Pt verbalizing concerns of conspiracy theories and states she may become suicidal but denies SI/HI at this time. Coronavirus screen: At this time, the client does not indicate any symptoms associated with coronavirus-19. Ebola Screen: Patient negative for fever greater than or equal to 101.5 degrees Fahrenheit, and additional compatible Ebola Virus Disease symptoms Patient denies exposure to infectious person. Patient denies travel to an Ebola-affected area in the 21 days before illness onset. Initial Sepsis Screen: Does the patient meet any 2 criteria? No. Patient's initial sepsis screen is negative. Does the patient have a suspected source of infection? No. Patient's initial sepsis screen is negative. Risk Assessment: Do you want to hurt yourself or someone else? Patient reports no desire to harm self or others. Onset of symptoms was April 18, 2021. 20:30 Method Of Arrival: EMS: [facility] 20:30 Acuity: CHANI 2 wg Triage Assessment: 20:35 General: Appears distressed, slender, Behavior is anxious, crying. Pain: Denies pain. wg Historical: - Allergies: 20:35 No Known Allergies; wg - Home Meds: 20:35 Buspirone Oral [Active]; wg - PMHx: 20:35 Anxiety; Bipolar disorder; drug abuse; ADD/ADHD; previous suicide attempt; wg - Immunization history:: Adult Immunizations up to date. - Social history:: Smoking status: Patient reports the use of cigarette tobacco products, smokes one-half pack cigarettes per day, smokes one pack cigarettes per day. Patient uses alcohol, occasionally. street drugs. Screenin:30 Abuse screen: Denies threats or abuse. Denies injuries from another. Nutritional bs2 screening: No deficits noted. Tuberculosis screening: No symptoms or risk factors identified. Fall Risk None identified. Assessment: 21:30 General: Appears in no apparent distress. unkempt, Behavior is anxious, crying, bs2 inappropriate for age. General: pt is dirty unkept, states she does not have electricity and states she has been doing methamphetamine. Pain: Complains of pain in full body. Neuro: Level of Consciousness is awake, alert, obeys commands, Oriented to person, place, time, situation, Moves all extremities. Full function Gait is steady, Speech is normal. Cardiovascular: No deficits noted. Respiratory: No deficits noted. GI: No deficits noted. : No deficits noted. 21:34 EENT: No deficits noted. bs2 Psych: 21:30 [place] Suicide Severity Screening: In the past month, have you wished you were bs2 or wished you could go to sleep and not wake up? Patient responds "No." "In the past month, have you actually had any thoughts of killing yourself?" Patient responds "no." "In your lifetime, have you ever done anything, started to do anything, or prepared to do anything to end your life?" Patient responds "yes." Patient reports suicidal intent occurred greater than 3 months prior. Subjective: Patient's mood is sad, Delusions are denied, Hallucinations are denied Having thoughts of. Objective: Patient is cooperative, Speech is normal, Affect is appropriate. Interventions: Removed personal items and placed in bag. Patient placed in hospital gown. Searched person for dangerous items. Urine collected and sent for urine drug test. Safety Checks: Personal items have been removed. Door is open. No visitors are present at this time. Patient uses Patient uses marijuana Patient uses methamphetamines unknown amount and pt states yesterday. Commitment: Patient will be a voluntary commitment. Vital Signs: 20:30 BP 149 / 100; Pulse 88; Resp 18; Temp 98; Pulse Ox 98% on R/A; Weight 56.7 kg; Height 5 wg ft. 4 in. (162.56 cm); Pain 0/10; 05/05 04:24 BP 150 / 98; Pulse 87; Resp 18; Temp 97.0; Pulse Ox 98% ; Pain 0/10; bs2 05/04 20:30 Body Mass Index 21.46 (56.70 kg, 162.56 cm) ED Course: 05/04 19:18 Patient arrived in ED. rg4 20:35 Triage completed. wg 20:36 Arm band placed on right wrist. wg 21:30 Patient has correct armband on for positive identification. Placed in gown. Bed in low bs2 position. Call light in reach. Side rails up X2. Pulse ox on. NIBP on. Warm blanket given. 21:33 Pratima Barker, MIN is Primary Nurse. bs2 22:01 Xiang Paige MD is Attending Physician. og 23:31 Urine Drug Screen Sent. ld1 05/05 00:31 Acetaminophen Sent. bs2 00:57 Philippe Velze MD is Referral Physician. og 04:13 No provider procedures requiring assistance completed. IV discontinued, intact, bs2 bleeding controlled, No redness/swelling at site. Administered Medications: 05/04 23:55 Drug: NS 0.9% 1000 ml Route: IV; Rate: 1 bolus; Site: left antecubital; bs2 05/05 04:13 Follow up: IV Status: Completed infusion; IV Intake: 1000ml bs2 00:10 Drug: Ativan (LORazepam) 1 mg Route: IVP; Site: left antecubital; bs2 00:33 Follow up: Response: No adverse reaction bs2 04:13 Follow up: Response: No adverse reaction bs2 04:16 Not Given (Physician Discretion; pp): Ativan (LORazepam) 1 mg IVP once bs2 04:16 Not Given (Physician Discretion; pp): hydrOXYzine 50 mg PO once bs2 Intake: 04:13 IV: 1000ml; Total: 1000ml. bs2 Outcome: 00:57 Discharge ordered by . og 04:14 Discharged to home ambulatory. bs2 04:14 Condition: stable 04:14 Discharge instructions given to patient, Instructed on discharge instructions, follow up and referral plans. medication usage, Demonstrated understanding of instructions, follow-up care, medications, Prescriptions given X 1. 06:06 Patient left the ED. bb Signatures: Xiang Paige MD MD cha Ballard, Brenda, RN RN Kelsey Pastor rg4 Vani Nava, RN RN ld1 Pratima Barker, RN RN bs2 Samuel Fox RN wg Corrections: (The following items were deleted from the chart) 05/04 20:37 20:30 Chief complaint: Patient states: PT states she hasn't been on her bipolar meds wg and is very anxious. Pt very tearful in triage. Pt states she is a meth addict. Pt states she has been hallucinating. Pt verbalizing concerns of conspiracy theories and states she may become suicidal but denies SI/HI at this time. wg 05/05 04:20 04:16 General: Appears in no apparent distress. unkempt, Behavior is anxious, crying, bs2 inappropriate for age, bs2 04:20 04:16 Pain: Complains of pain in full body bs2 bs2 04:20 04:16 Neuro: Level of Consciousness is awake, alert, obeys commands, Oriented to bs2 person, place, time, situation, Moves all extremities. Full function Gait is steady, Speech is normal, bs2 04:20 04:16 Cardiovascular: No deficits noted. bs2 bs2 04:20 04:16 Respiratory: No deficits noted. bs2 bs2 04:20 04:16 GI: No deficits noted. bs2 bs2 04:20 04:16 : No deficits noted. bs2 bs2 04:20 04:16 EENT: No deficits noted. bs2 bs2 04:20 04:16 Derm: bs2 bs2 04:20 04:16 General: pt is dirty unkept, states she does not have electricity and states she bs2 has been doing methamphetamine. bs2
--- NOTE | 2021-05-05 00:57 | EDPHYS ---
Physician Documentation [facility] Name: Shaista Awad Age: 60 yrs Sex: Female : 1960 Arrival Date: 05/04/2021 Time: 19:18 Bed 14 Private MD: ED Physician Xiang Paige HPI: 05/04 23:40 This 60 yrs old Female presents to ER via EMS with complaints of Psych og Problem. Historical: - Allergies: 20:35 No Known Allergies; wg - Home Meds: 20:35 Buspirone Oral [Active]; wg - PMHx: 20:35 Anxiety; Bipolar disorder; drug abuse; ADD/ADHD; previous suicide attempt; wg - Immunization history:: Adult Immunizations up to date. - Social history:: Smoking status: Patient reports the use of cigarette tobacco products, smokes one-half pack cigarettes per day, smokes one pack cigarettes per day. Patient uses alcohol, occasionally. street drugs. ROS: 23:41 Constitutional: Negative for fever, chills, and weight loss, Eyes: Negative for injury, og pain, redness, and discharge, ENT: Negative for injury, pain, and discharge, Neck: Negative for injury, pain, and swelling, Cardiovascular: Negative for chest pain, palpitations, and edema, Respiratory: Negative for shortness of breath, cough, wheezing, and pleuritic chest pain, Abdomen/GI: Negative for abdominal pain, nausea, vomiting, diarrhea, and constipation, Back: Negative for injury and pain, : Negative for injury, bleeding, discharge, and swelling, MS/Extremity: Negative for injury and deformity, Skin: Negative for injury, rash, and discoloration, Neuro: Negative for headache, weakness, numbness, tingling, and seizure, Allergy/Immunology: Negative for hives, rash, and allergies, Endocrine: Negative for neck swelling, polydipsia, polyuria, polyphagia, and marked weight changes. 23:41 Psych: Positive for anxiety, drug dependence. Exam: 23:41 Constitutional: This is a well developed, well nourished patient who is awake, alert, og and in no acute distress. Head/Face: Normocephalic, atraumatic. Eyes: Pupils equal round and reactive to light, extra-ocular motions intact. Lids and lashes normal. Conjunctiva and sclera are non-icteric and not injected. Cornea within normal limits. Periorbital areas with no swelling, redness, or edema. ENT: Nares patent. No nasal discharge, no septal abnormalities noted. Tympanic membranes are normal and external auditory canals are clear. Oropharynx with no redness, swelling, or masses, exudates, or evidence of obstruction, uvula midline. Mucous membranes moist. Neck: Trachea midline, no thyromegaly or masses palpated, and no cervical lymphadenopathy. Supple, full range of motion without nuchal rigidity, or vertebral point tenderness. No Meningismus. Chest/axilla: Normal chest wall appearance and motion. Nontender with no deformity. No lesions are appreciated. Cardiovascular: Regular rate and rhythm with a normal S1 and S2. No gallops, murmurs, or rubs. Normal PMI, no JVD. No pulse deficits. Respiratory: Lungs have equal breath sounds bilaterally, clear to auscultation and percussion. No rales, rhonchi or wheezes noted. No increased work of breathing, no retractions or nasal flaring. Abdomen/GI: Soft, non-tender, with normal bowel sounds. No distension or tympany. No guarding or rebound. No evidence of tenderness throughout. Back: No spinal tenderness. No costovertebral tenderness. Full range of motion. Female : Normal external genitalia. Skin: Warm, dry with normal turgor. Normal color with no rashes, no lesions, and no evidence of cellulitis. MS/ Extremity: Pulses equal, no cyanosis. Neurovascular intact. Full, normal range of motion. Neuro: Awake and alert, GCS 15, oriented to person, place, time, and situation. Cranial nerves II-XII grossly intact. Motor strength 5/5 in all extremities. Sensory grossly intact. Cerebellar exam normal. Normal gait. 23:41 Neuro: Orientation: is normal, appropriate for stated age, no acute changes, Mentation: is normal, appropriate for stated age, no acute changes, Memory: is normal, appropriate for stated age, no acute changes, Cranial nerves: grossly normal, is grossly normal based on the patient's age, no acute changes, Cerebellar function: is grossly normal, is grossly normal based on the patient's age, no acute changes, Motor: is normal, moves all fours, strength is normal, Sensation: is normal, no obvious gross deficits, appropriate no acute changes, Gait: is steady, appropriate for age, Babinski testing is normal, seizure activity, is not displayed by the patient. Vital Signs: 20:30 BP 149 / 100; Pulse 88; Resp 18; Temp 98; Pulse Ox 98% on R/A; Weight 56.7 kg; Height 5 wg ft. 4 in. (162.56 cm); Pain 0/10; 05/05 04:24 BP 150 / 98; Pulse 87; Resp 18; Temp 97.0; Pulse Ox 98% ; Pain 0/10; bs2 05/04 20:30 Body Mass Index 21.46 (56.70 kg, 162.56 cm) wg MDM: 05/04 22:01 Patient medically screened. og 23:41 Differential diagnosis: drug withdrawal. Data reviewed: vital signs, nurses notes. Data og interpreted: desk monitor: rate is 88 beats/min, rhythm is regular, Pulse oximetry: on room air is 98 %. Test interpretation: by ED physician or midlevel provider: ECG. Counseling: I had a detailed discussion with the patient and/or guardian regarding: the historical points, exam findings, and any diagnostic results supporting the discharge/admit diagnosis, lab results. 05/04 20:38 Order name: Acetaminophen 05/04 20:38 Order name: Basic Metabolic Panel; Complete Time: 00:03 05/04 20:38 Order name: CBC with Diff; Complete Time: 23:40 05/04 20:38 Order name: ETOH Level; Complete Time: 00:03 05/04 20:38 Order name: Hepatic Function; Complete Time: 00:03 05/04 20:38 Order name: PT-INR; Complete Time: 23:40 05/04 20:38 Order name: Ptt, Activated; Complete Time: 23:40 05/04 20:38 Order name: Salicylate; Complete Time: 00:03 05/04 20:38 Order name: Urine Drug Screen; Complete Time: 00:03 05/04 20:39 Order name: Acetaminophen Level; Complete Time: 00:03 EDMS 05/04 23:31 Order name: Urine Dipstick-Ancillary; Complete Time: 23:40 EDMS 05/04 20:38 Order name: EKG; Complete Time: 20:39 05/04 20:38 Order name: EKG - Nurse/Tech; Complete Time: 00:31 wg 05/04 20:38 Order name: IV Saline Lock; Complete Time: 00:31 wg 05/04 20:38 Order name: Labs collected and sent; Complete Time: 00:31 wg 05/04 20:38 Order name: Suicide Screening ([place]); Complete Time: 04:24 wg 05/04 20:38 Order name: Urine Dipstick-Ancillary (obtain specimen); Complete Time: 23:31 wg 05/04 20:38 Order name: Urine Dipstick-Ancillary (obtain specimen); Complete Time: 23:30 wg Administered Medications: 23:55 Drug: NS 0.9% 1000 ml Route: IV; Rate: 1 bolus; Site: left antecubital; bs2 05/05 04:13 Follow up: IV Status: Completed infusion; IV Intake: 1000ml bs2 00:10 Drug: Ativan (LORazepam) 1 mg Route: IVP; Site: left antecubital; bs2 00:33 Follow up: Response: No adverse reaction bs2 04:13 Follow up: Response: No adverse reaction bs2 04:16 Not Given (Physician Discretion; pp): Ativan (LORazepam) 1 mg IVP once bs2 04:16 Not Given (Physician Discretion; pp): hydrOXYzine 50 mg PO once bs2 Disposition Summary: 05/05/21 00:57 Discharge Ordered Location: Home og Problem: new og Symptoms: have improved og Condition: Stable og Diagnosis - Bipolar disorder, current episode depressed, moderate og - Adverse effect of amphetamines og - Abuse of other non-psychoactive substances - methamphtamines og Followup: og - With: Private Physician - When: 2 - 3 days - Reason: Recheck today's complaints, Continuance of care, Re-evaluation by your physician Followup: og - With: - When: 2 - 3 days - Reason: Recheck today's complaints, Re-evaluation by your physician Discharge Instructions: - Discharge Summary Sheet og - Finding Treatment for Addiction og - Bipolar 1 Disorder og - Substance Use Disorder og - Supporting Someone With an Addiction og - Methamphetamines Use Disorder og - Managing Bipolar Disorder og - Mixed Bipolar Disorder og Forms: - Medication Reconciliation Form og - Thank You Letter og - Antibiotic Education og - Prescription Opioid Use og Prescriptions: - Hydroxyzine HCl 50 mg Oral Tablet - take 1 tablet by ORAL route every 8 hours As needed; 20 tablet; Refills: 0, og Product Selection Permitted Signatures: Dispatcher [employer] Xiang Owen MD MD cha Smith, Bridget, RN RN bs2 Samuel Fox RN wg
[2021-05-05 06:13] VITALS: O2SAT 98
[2021-05-05 06:15] VITALS: BP 150/98; TEMP 97
--- NOTE | 2021-05-05 10:22 | EKG ---
Test Date: 2021-05-04 Test Time: 22:53:09 Luster Repairer: CAROLYN MEASUREMENT RESULTS: Intervals: Rate: 72 FL: 128 QRSD: 64 QT: 390 QTc: 427 Leslie: P: 49 FL: 128 QRS: 56 T: 65 INTERPRETIVE STATEMENTS: Normal sinus rhythm Low voltage QRS Borderline ECG Compared to ECG 02/08/2021 13:53:04 Low QRS voltage now present Sinus arrhythmia no longer present Electronically Signed On 05-05-21 10:21:45 CDT by Crow Philpipe
== END 2021-05-05 06:06 | disposition home or self-care (01) ==
LOC: ER 19:16
DX: F31.32 Bipolar disorder, current episode depressed, moderate (principal); F15.10 Other stimulant abuse, uncomplicated; T43.625A Adverse effect of amphetamines, initial encounter; F17.210 Nicotine dependence, cigarettes, uncomplicated
CPT/HCPCS: 96361; 93005; 85025; 80048; 36415; 80320; 80329 ×2; 85610; 80076; 85730; 81003; 80307; 96374; 99285; J7030

== ENCOUNTER 2023-05-17 18:27 | Emergency (ER) | payer OTHER ==
--- OUTSIDE RECORDS SUMMARY | 2023-05-17 18:33 | XMS REPORT | Continuity of Care Document ---
:1960 Author Organization [facility] t Address [address] [facility] [address] [place] [address] Care Team Providers Name Role Phone Asked, No Pcp Primary Care Physician Unavailable Fabricio Germain Attending Clinician Unavailable Alyssa Benítez DO Attending Clinician ALYSSA BENÍTEZ Attending Clinician Unavailable JOYA PRUITT Attending Clinician Unavailable COVERDALECROW Attending Clinician Unavailable KEN NERI Attending Clinician Unavailable Kirill Lind MD Attending Clinician Ken Neri MD Attending Clinician Sulma GARCIA, [facility] Attending Clinician Jenni Mcintosh Attending Clinician Unavailable ARISTEO GAMBOA Attending Clinician Unavailable MD ARISTEO GAMBOA Attending Clinician Unavailable COVERDALECROW Admitting Clinician Unavailable Eduardo Kapadia Admitting Clinician Unavailable Physician, No Primary or Family Admitting Clinician UnavailMD ARISTEO Nair Admitting Clinician Unavailable Payers Payer Name Policy Type Policy Number Effective Date Expiration Date S yaa [employer] P [id number] STAR+PLUS Medicaid [employer] STAR [id number] 2019 00:00:00 Problems Condition Condition Condition Status Onset Resolution Last Treating Co mments Source Name Details Category Date Date Treatment Clinician Date Drug Drug Disease Recurre [facility] n[facility] 00[facility]: [facility] 00 Center Elevated Elevated Disease Active [facility] pressure 00:00: Medica l reading reading 00 Center Allergies, Adverse Reactions, Alerts Allergy Allergy Status Severity Reaction(s) Onset Inactive Treating Comm ents Source Name Type Date Date Clinician No Known DA Active U 2020-08 [facility]ergie 0-10 Clear s 00:00: Hung 00 [facility] No Known DA Active U 2020-08 [facility] Allergie 0-10 Clear s 00:00: Hung 00 [facility] NO KNOWN Allergy Active [facility] Social History Social Habit Start Date Stop Date Quantity Comments Source Sexual orientation [facility] History of tobacco Smokes tobacco [facility] use daily Exposure to 2023-04-19 2023-04-[address] [facility] SARS-CoV-2 (event) 00:00:00 13:14:00 [facility] Tobacco use and 2023-04-29 2023-04-29 Smokeless tobacco [facility] exposure 00:00:00 00:00:00 non-user [facility] Alcohol intake 2023-04-29 2023-04-[address] [facility] 00:00:00 00:00:00 non-drinker Medical Ramses solomon (finding) History of Social 2022-09-23 2022-09-23 [facility] function 00:00:00 00:00:00 Cigarettes smoked 2022-09-23 2022-09-23 [facility] current (pack per 00:00:00 00:00:00 day) - Reported Sex Assigned At [address] [facility] 00:00:00 00:00:00 [facility] Smoking Status Start Date Stop Date Source Tobacco smoking consumption [facility] unknown Never smoked tobacco [facility] Smokes tobacco daily 2022-09-23 00:00:00 [facility] Medications Ordered Filled Start Stop Current Ordering Indication Dosage Frequency Signature Comments Components Source Medication Medication Date Date Medication? Clinician (SIG) Name Name terbinafine Yes [id number] 250mg QD Take 1 [facility] 2-16 tablet by [facility] (LAMISIL) 00:00: mouth 250 mg 00 daily. tablet Start date 09/30/22. divalproex Yes [id number] 1750mg Take 7 [facility] (DEPAKOTE) 2-15 tablets by [facility] 250 mg 00:00: mouth at extended 00 bedtime release nightly tablet lisinopriL No 10mg QD 10 mg, Itzel is (PRINIVIL, 09-24 Oral, Health ZESTRIL) 09:00: 22:05 DAILY, tablet 10 00 :48 First dose mg on Tue09/24/22 at 0900, Until Discontinu ed, STAT LORazepam No 2mg 2 mg, [facility] (ATIVAN) 09-23 Oral, [facility] tablet 2 mg 18:58: 20:03 ONCE, 1 00 :00 dose, On Tue09/23/22 at 1858, STAT acetaminoph No 500mg 500 mg, H arris en 09-23 Oral, [facility] (TYLENOL) 17:46: 18:18 ONCE, 1 tablet 500 00 :00 dose, On mg Tue09/23/22 at 1746, STAT hydrOXYzine No 50mg 50 mg, Fernie ris (ATARAX) 09-23 Oral, [facility] tablet 50 10:58: 12:45 ONCE, 1 mg 00 :00 dose, On Tue09/23/22 at 1059, STAT lactated No 500mL at 999 [facility]ers 09-23 mL/hr, Health infusion 10:35: 21:07 Intravenou 500 mL 00 :00 s, ONCE, 1 dose, On Tue09/23/22 at 1035 Vital Signs Vital Name Observation Time Observation Value Comments Source HEIGHT 2023-04-29 13:15:00 162.6 cm WEIGHT 2023-04-29 13:15:00 72.576 kg HEIGHT 2023-04-29 13:15:00 162.6 cm WEIGHT 2023-04-29 13:15:00 72.576 kg Systolic blood 2022-09-23 19:00:00 136 mm[Hg] [facility] pressure Diastolic blood 2022-09-23 19:00:00 89 mm[Hg] [facility] Heart rate 2022-09-23 19:00:00 92 /min [facility] Body temperature 2022-09-23 19:00:00 36.83 Georgie [facility] Respiratory rate 2022-09-23 19:00:00 18 /min [facility] Oxygen saturation in 2022-09-23 19:00:00 98 /min [facility] Arterial blood by Pulse oximetry Systolic blood 2022-09-23 19:00:00 136 mm[Hg] [facility] pressure Diastolic blood 2022-09-23 19:00:00 89 mm[Hg] [facility] Heart rate 2022-09-23 19:00:00 92 /min [facility] Body temperature 2022-09-23 19:00:00 36.83 Georgie [facility] Respiratory rate 2022-09-23 19:00:00 18 /min [facility] Oxygen saturation in 2022-09-23 19:00:00 98 /min [facility] Arterial blood by Pulse oximetry Heart rate 2023-04-29 16:45:00 88 /min [facility] Oxygen saturation in 2023-04-29 16:45:00 99 /min [facility] Arterial blood by Medical Ce nter Pulse oximetry Systolic blood 2023-04-29 16:30:00 166 mm[Hg] [facility] Diastolic blood 2023-04-29 16:30:00 99 mm[Hg] [facility] Respiratory rate 2023-04-29 16:30:00 18 /min [facility] Body temperature 2023-04-29 13:15:00 37.11 Georgie [facility] Body height 2023-04-29 13:15:00 162.6 cm [facility] Body weight 2023-04-29 13:15:00 72.576 kg [facility] BMI 2023-04-29 13:15:00 27.46 kg/m2 [facility] Systolic blood 2022-07-29 23:19:00 152 mm[Hg] [facility] pressure Diastolic blood 2022-07-29 23:19:00 99 mm[Hg] [facility] pressure Heart rate 2022-07-29 23:19:00 95 /min [facility] Respiratory rate 2022-07-29 23:19:00 18 /min [facility] Oxygen saturation in 2022-07-29 23:19:00 95 /min [facility] Arterial blood by Pulse oximetry Body height 2022-07-29 17:58:00 162.6 cm [facility] Body weight 2022-07-29 17:58:00 72.576 kg [facility] BMI 2022-07-29 17:58:00 27.46 kg/m2 [facility] Body temperature 2022-07-29 17:39:30 36.94 Georgie [facility] Procedures Procedure Date / Time Performing Clinician Source Performed ECG 12-LEAD 2023-04-29 13:38:12 Unknown, Hl7 Doctor [facility] ECG 12-LEAD 2023-04-29 13:38:12 Unknown, Hl7 Doctor [facility] EKG-SCANNED 2023-04-29 00:00:00 Provider, [facility] BASIC METABOLIC PANEL 2022-09-23 14:54:00 Blayne Felipe [facility] URINE DRUG SCREEN 2022-09-23 13:14:00 Blayne Felipe a lth URINALYSIS 2022-09-23 13:14:00 Blayne Felipe h URINALYSIS 2022-09-23 13:14:00 Blayne Felipe h MICROSCOPIC-REFLEX ACETAMINOPHEN 2022-09-23 12:11:00 Blayne Felipe h ALCOHOL, MEDICAL USE ONLY 2022-09-23 12:11:00 Blayne Felipe [facility] CBC/DIFF 2022-09-23 12:11:00 Blayne Felipet h SALICYLATE 2022-09-23 12:11:00 Blayne Felipet h FREE T4 2022-09-23 12:11:00 Blayne Felipet h THYROID STIMULATING 2022-09-23 12:11:00 Blayne Felipe H ealt HORMONE (TSH) CBC 2022-09-23 12:11:00 Blayne Felipe CORONAVIRUS, COVID-19, 2022-09-23 11:35:00 Blayne Felipe [facility] VIC SARS-COV-2, FLU A/B, RSV 2022-09-23 11:35:00 Blayne Felipe [facility] 12 LEAD EKG 2022-09-23 10:55:11 Blayne Felipe h URINE CULTURE 2022-07-29 20:12:00 [place], [facility] ECG ED PRELIMINARY 2022-07-29 20:11:04 Rebekah Aggarwal [facility] INTERPRETATION Diannia CBC WITH PLATELET AND 2022-07-29 18:45:00 Sulma [facility] DIFFERENTIAL COMPREHENSIVE METABOLIC 2022-07-29 18:45:00 [place] [facility] PANEL THYROID STIMULATING 2022-07-29 18:45:00 Sulma [facility] Met [facility] HORMONE T4, FREE 2022-07-29 18:45:00 [place]leton [facility] ALCOHOL LEVEL, BLOOD 2022-07-29 18:45:00 [place]leton [facility] ACETAMINOPHEN LEVEL 2022-07-29 18:45:00 [place] [facility] SALICYLATE LEVEL 2022-07-29 18:45:00 [place] [facility] URINE DRUGS OF ABUSE 2022-07-29 18:45:00 Sulma [facility] SCREEN URINALYSIS SCREEN AND 2022-07-29 18:45:00 Sulma [facility] MICROSCOPY, WITH REFLEX TO CULTURE ESTIMATED GFR 2022-07-29 18:45:00 Sulma [facility] ECG 12-LEAD 2022-07-29 18:24:41 Sulma [facility] COVID-19 QUALITATIVE 2022-07-29 14:16:[facility] Plan of Care Planned Activity Planned Date Details Comments Source Future Scheduled 2024-04-[address] [facility] Test 00:00:00 Counseling and Screening [facility] (12+) [code = Tobacco Cessation Counseling and Screening (12+)] Future Scheduled 2023-04-21 Screening for malignant [facility] 07:01:49 neoplasm of colon Hospital (procedure) [code = 080602622] Future Scheduled 2023-04-21 Screening for malignant [facility] 07:01:49 neoplasm of colon Hospital (procedure) [code = 775520885] Future Scheduled 2023-04-21 Screening for malignant [facility] 07:01:49 neoplasm of colon Hospital (procedure) [code = 263690565] Future Scheduled 2023-04-21 COVID-19 VACCINE (#1) [facility] 07:01:49 [code = COVID-19 VACCINE Hos pital (#1)] Future Scheduled 2023-04-21 Hepatitis C screening [facility] 07:01:49 (procedure) [code = Hospital 479548170] Future Scheduled 2023-04-21 Screening for malignant [facility] 07:01:49 neoplasm of cervix Hospital (procedure) [code = 867640330] Future Scheduled 2023-04-21 BREAST CANCER SCREENING [facility] 07:01:49 [code = BREAST CANCER Hospit al SCREENING] Future Scheduled 2023-04-21 Screening for malignant [facility] 07:01:49 neoplasm of colon Hospital (procedure) [code = 617437786] Future Scheduled 2023-04-21 Screening for malignant [facility] 07:01:49 neoplasm of colon Hospital (procedure) [code = 229128395] Future Scheduled 2023-04-21 SHINGLES VACCINES (1 of [facility] 07:01:49 2) [code = SHINGLES Hospital VACCINES (1 of 2)] Future Scheduled 2023-04-21 INFLUENZA VACCINE (#1) [facility]ist Test 07:01:49 [code = INFLUENZA VACCINE Ho spital (#1)] Future Scheduled 2023-04-15 Influenza Vaccine (#1[facility] [code = Influenza Vaccine Me dical Center (#1)] Future Scheduled 2022-08-[address] [facility] Test 00:00:00 (12+) [code = DEPRESSION Med ical Center SCREENING (12+)] Future Scheduled 2011 SHINGLES VACCINES ([address] [facility] Test 00:00:00 2) [code = SHINGLES Medical Center VACCINES (1 of 2)] Future Scheduled 2006 Lipid panel (procedure) [facility] Test 00:00:00 [code = 97440682] Medical Ce nter Future Scheduled 1982 Screening for malignant [facility] Test 00:00:00 neoplasm of cervix Medical C enter (procedure) [code = 784760775] Future Scheduled 1980 DTAP/TDAP/TD VACCINES ([address] [facility] Test 00:00:00 - Tdap) [code = Medical Cent er DTAP/TDAP/TD VACCINES (1 - Tdap)] Future Scheduled 1979 HEPATITIS C [facility]CRE[facility]ING [facility] Test 00:00:00 [code = HEPATITIS C Medical Center SCREENING] Future Scheduled [address] [facility] Test 00:00:00 virus screening Medical Cent er (procedure) [code = 770308255] Future Scheduled 1961 COVID-19 VACCINE (#1) [facility] Test 00:00:00 [code = COVID-19 VACCINE Med [facility] Center (#1)] Future Scheduled 1961 Screening for malignant [facility] Test 00:00:00 neoplasm of breast Medical C enter (procedure) [code = 189670531] Future Scheduled 1961 CT Colonography (combo) [facility] Test 00:00:00 [code = CT Colonography [facility] Center (combo)] Future Scheduled 1961 Screening for malignant [facility] Test 00:00:00 neoplasm of colon Medical Ce nter (procedure) [code = 101964100] Future Scheduled 1961 Screening for malignant [facility] Test 00:00:00 neoplasm of colon Medical Ce nter (procedure) [code = 408078811] Future Scheduled 1961 Screening for malignant [facility] Test 00:00:00 neoplasm of colon Medical Ce nter (procedure) [code = 586909153] Future Scheduled 1961 Screening for malignant [facility] Test 00:00:00 neoplasm of colon Medical Ce nter (procedure) [code = 480141692] Future Scheduled 1960 Sigmoidoscopy [code = [facility] Test 00:[facility]:00 Sigmoidoscopy] Medical Cente r Encounters Start End Encounter Admission Attending Care Care Encounter Source Date/Time Date/Time Type Type Clinicians Facility Department ID 2023-03-17 Outpatient Marcellus, [facility] [id number] [place] 08:43:01 Fabricio [id number] Clinic 2023-01-31 Outpatient [facility] [id number] [place] 13:31:03 [id number] Pending sale to [facility] 2022-09-23 Emergency HFD HFD [id number] KINGSLEY - 09:45:16 [facility] ent 2021-08-03 Outpatient [facility] [id number] [facility] 15:05:26 [id number] Pending sale to [facility] 2023-04-29 2023-04-29 Emergency Jeyson, [facility] [id number] 13:23:00 17:15:00 [facility] 2023-04-29 2023-04-29 Emergency ER JEYSON, [facility] Emergency [id number] [facility] 13:23:00 17:15:00 [facility] 2023-04-29 2023-04-29 Orders [facility] [id number] 00:00:00 00:00:00 Only [facility] 2023-04-29 2023-04-29 Travel [facility] [id number] [facility] 00:[facility]00 00:00:00 [facility] 2022-10-13 2022-10-13 Outpatient [facility] [id number] [place]en 00:00:00 00:00:00 [facility] 2022-09-23 2022-09-29 Inpatient 2 COVERDAKYLER [facility] [id number] [place] 22:05:00 13:53:00 [facility] 2022-09-23 2022-09-23 Emergency 1 SURKELL [facility] [id number] [place] 10:03:00 21:26:00 [facility] 2022-09-23 2022-09-23 Emergency Kirill Lind 1.2.840.1 [id number] [facility] 10:03:00 21:26:[address] [facility] [id number] [facility] .2.7.2.6869 [id number] 1246-12-15 2022-07-29 Emergency Sulma, 1.2.840.1 [id number] Methodi 11:59:00 19:25:00 Dayan-Lorna [address] Lorna 3.430.2.7 Hospit a .3.113383 l .8 2022-07-29 2022-07-29 Travel 1.2.840.1 [id number] [id number] Methodi 00:00:00 00:00:[address] 3.430.2.7 0.2.7.3.698 Ho spita .3.832710 084.8 l .8 2022-07-29 2022-07-29 Emergency SULMA, [facility] 064 [id number] [place] 00:00:00 00:00:00 DAYAN-LORNA 083 Jessicao ivy 2021-05-24 2021-05-25 Emergency EM Dayna, [facility] MICHAEL [id number] [facility] 15:40:00 04:23:00 Safi 41 [facility] 2021-05-24 2021-05-24 Outpatient Dayna [facility] [id number] [facility] 18:38:00 18:38:00 Safi 38 [facility] 2020-10-02 2020-10-04 Emergency GAMBOA, [facility] 064 [id number] 74 [place] 00:00:00 00:00:00 ARISTEO [address] Results Test Description Test Time Test Comments Results Result Comments Source RPR Ser-Titr 2022-09-24 16:00:48 Test Item Value Reference Range Interpretation Comme nts RPR Ser Ql (test code = 49656-9) NON-REACTIVE Non-reactive HHSCoronavirus, CoVID-19, [id number] 12:27:08 Test Item Value Reference Interpretation Comments Range COVID-19 Not Detected Not Detected INTERPRETATION: (SARS-COV-2) (test No detect able code = 33555-4) levels of SARS-CoV-2 Coronavirus (COVID-19) were present in this patient's sampl e by this test. A not detected result does not exclude the possibility of active infectio n with this virus due to other factors that ma y affect the results such as a poorly collected sample, viral titers below th e limit of detection of th e assay, and the infrequent possibility of inhibitors in the sample. Thi s result should b e interpreted in conjunction wit h clinical, radiographic, and other laboratory findings and should not be used as the anne e indicator of active infectio n with SARS-CoV-2 Coronavirus (COVID-19). MICHELE (test code = COMMENT: This MICHELE) Occlutechert Xpress SARS-CoV-2 real-time PCR test was developed, and its performance characteristics determined by the [facility] molecular diagnostic Laboratory and is acceptable for patient testing. It has been approved for patient testing by the FDA under the Emergency Use Authorization pathway. This laboratory is certified under federal CLIA regulations to perform this type of high complexity testing. Lab Interpretation Normal (test code = 31489-2) [facility] RNA Resp Ql [id number] 12:27:08 Test Item Value Reference Range Interpretation Comments Hospitalized? (test No code = 07949-1) ICU? (test code = No 70528-5) Symptomatic as defined No by CDC? (test code = 37130-6) Employed in No Healthcare? (test code = 16798-4) Resident in a No congregate care setting (including nursing homes, residential care for people with intellectual and developmental disabilities, psychiatric treatment facilities, group homes, board and care homes, homeless chcf, foster care or other): (test code = 60604-3) ? (test code = No 73242-7) SARS-CoV-2 RNA Resp Ql NOT DETECTED Not Detected INTER PRETATION: No VIC+probe (test code = detec table levels 93818-5) of SARS-CoV-2 Coronavirus (COVID-19) were present in this patient's sampl e by this test. A no t detected result does not exclud e the possibility of active infectio n with this virus due to other factor s that may affect the results such as a poorly collecte d sample, viral titers below th e limit of detect ion of the assay, a nd the infrequent possibility of inhibitors in t he sample. This re sult should be interpreted in conjunction wit h clinical, radiographic, a nd other laborator y findings and sh ould not be used as the sole indicator of active infectio n with SARS-CoV-2 Coronavirus (COVID-19). COMMENT: This [place] Xpert Xpress SARS-CoV-2 real-time PCR test was developed, and its performance characteristics determined by the [facility] molecular diagnostic Laboratory and is acceptablefor patient testing. It has been approved for patient testing by the FDA under the Emergency Use Auth orization pathway. This laboratory is certified under federal CLIA regulations to perform this type of high complexity testing.HHS12 Lead [id number] 10:55:1112 LEAD EKG FOR [facility] Test Date: 7066-81-61Hba Name: JAMES BENAVIDES Department: 5520Patient ID: [id number] Room: Gender: F Inspector Set Up And Lay Out: [id number]: 1960 Requested By: KIRILL LIND Order Number: [id number] Reading MD: Liborio Nguyen MeasurementsIntervals [place] Rate: 90 P: 68PR: 126 QRS: 57QRSD: 86 T: 68QT: 363 QTc: 411 Interpretive StatementsSINUS RHYTHMElectronically Signed On 09-24-2022 8:06:52 ABRASIVE BAND WINDER by Liborio Nguyen [facility] [id number] 04:05:00 Test Item Value Reference Range Interpretation Comments Urine culture Mixed meghana Specimen isolate (test <=10-3 col/cc InformationSp ecimen code = 34089-3) Source: Urin eSpecimen Site: [facility] [id number] 03:24:27 Test Item Value Reference Range Interpretation Comments Ventricular rate (test 83 code = 253) Atrial rate (test code = 83 255) [place] interval (test code = 124 266) QRSD interval (test code 84 = 260) QT interval (test code = 396 264) QTC interval (test code 465 = 265) P axis 1 (test code = 52 267) QRS axis 1 (test code = 45 638) T wave axis (test code = 54 127) EKG impression (test Normal sinus code = 273) rhythm-Normal ECG-No previous ECGs available-Electronica lly Signed By Carlos Mason MD ([id number]) on 07/29/2022 9:24:21 PM [facility] [id number] 01:19:00 Test Item Value Reference Range Interpretation Comments COVID 19 Asymptomatic NEGATIVE Negative Per ma nufacturer, IH AG (test code = negative results should COVNONPUIAG) be treated aspresumptive a nd, if inconsistent wi th clinical signs andsymptoms or necessary for p atient management, ana uld betested with a n alternative mol ecular assay. Negative resultsdo not p reclude SARS-CoV-2 infe ction and should not be usedas the sole basis for patient man agement decisions. Nega tive results should be considered in t he context of apat ient's recent exposure s, history, presen ce of clinicalsigns a nd symptoms consis tent with COVID-19. BASIC METABOLIC [id number] 17:44:00 Test Item Value Reference Range Interpretation Comments SODIUM (test code = NA) 141 mmol/L 134-147 N POTASSIUM (test code = 4.6 mmol/L 3.4-5.0 N K) CHLORIDE (test code = 111 mmol/L 100-108 H CL) CARBON DIOXIDE (test 26 mmol/L 21-32 N code = CO2) ANION GAP (test code = 4.0 GAP calc 4.0-15.0 N GAP) GLUCOSE (test code = 96 MG/DL 70-110 N GLU) BLOOD UREA NITROGEN 19 MG/DL 7-18 H (test code = BUN) GLOMERULAR FILTRATION >=60 max estimate >60 RATE (test code = GFR) estGFR CREATININE (test code = 0.8 MG/DL 0.6-1.0 N CREAT) CALCIUM (test code = CA) 9.7 MG/DL 8.5-10.1 N HEPATIC FUNCTION [id number] 17:44:00 Test Item Value Reference Range Interpretation Comments TOTAL PROTEIN (test code = PROT) 7.5 G/DL 6.4-8.2 N ALBUMIN (test code = ALB) 3.9 G/DL 3.4-5.0 N BILIRUBIN TOTAL (test code = 0.30 MG/DL 0.2-1.2 N BILT) BILIRUBIN DIRECT (test code = < 0.10 MG/DL 0.00-0.30 N BILD) BILIRUBIN INDIRECT (test code = 0.20 MG/DL 0.2-1.2 N BILIND) SGOT/AST (test code = AST) 13 Unit/L 15-37 L SGPT/ALT (test code = ALT) 27 Unit/L 12-78 N ALKALINE PHOSPHATASE TOTAL (test 97 Unit/L 45-117 N code = ALKP) [id number] 17:44:00 Test Item Value Reference Range Interpretation Comments ALCOHOL (test code = ALC) < 3 MG/DL 0-10 N UA RFLX MICR CULT IF [id number] 17:16:00 Test Item Value Reference Range Interpretation Comments UA COLOR (test code = YELLOW discript YEL/STRAW COLU) UA APPEARANCE (test code HAZY discript CLEAR A = APPU) UA GLUCOSE DIPSTICK (test NEGATIVE mg/dL NEG code = DGLUU) UA BILIRUBIN DIPSTICK NEGATIVE mg/dL NEG (test code = BILU) UA KETONE DIPSTICK (test NEGATIVE mg/dL NEG code = KETU) UA SPECIFIC GRAVITY (test >=1.030 SG 1.005-1.030 A code = SGU) UA BLOOD DIPSTICK (test NEGATIVE mg/DL NEG code = DEWEY) UA PH DIPSTICK (test code 6.0 pH UNITS 5.0-7.0 = EVELIA) UA PROTEIN DIPSTICK (test NEGATIVE mg/dL NEG code = PROU) UA UROBILINIOGEN DIPSTICK 1.0 mg/dL <2.0 (test code = URO) UA NITRITE DIPSTICK (test NEGATIVE SCREEN NEG code = STACIE) UA LEUKOCYTE ESTERASE 1+ Leuk/mcL NEGATIVE A DIPSTICK (test code = LEUU) UA CULTURE NEEDED? (test YES,WBC>10 & EPI<25 Culture CHK code = UACULT) Criteria UA WBC (test code = WBCU) 10-20 #WBC/HPF 0-3 A UA RBC (test code = RBCU) 0-1 #RBC/HPF 0-3 UA BACTERIA (test code = TRACE /HPF NONE-TRACE BACU) UA SQUAMOUS CELLS (test TRACE /HPF NONE code = SQU) UA MUCUS (test code = 3+ /LPF NONE SEEN A MUCU) UA FAT (test code = HAYDEN) TRACE /HPF NONE Indication for culture: RiskForSepsis-no oth srcSOURCE OF URINE: CLEAN CATCH DRUGS OF ABUSE SCREEN [id number] 17:16:00 Test Item Value Reference Range Interpretation Comments URN COCAINE (test NEGATIVE See_Comment UNCONFIRME D code = COCAURN) SCcutoff SCREENING RE SULTS SHOULD NOT BE U SED FORNON-MEDICAL PURPOSES. [Automated message] The system which generated this result transmit iam reference range : <300 NG/ML. The reference range was not used to interpret this result as normal/abnormal . URN CANNABINOIDS POSITIVE See_Comment A UNCONFIRMED (test code = SCcutoff SCREENING RESUL TS CANNABURN) SHOULD NOT BE U SED FORNON-MEDICAL PURPOSES. [Automated message] The system which generated this result transmit iam reference range : <50 NG/ML. The reference range was not used to interpret this result as normal/abnormal . URN AMPHETAMINE (test POSITIVE See_Comment A UNCONF IRMED code = AMPHETURN) SCcutoff SCREENING RESULTS SHOULD NOT BE U SED FORNON-MEDICAL PURPOSES. [Automated message] The system which generated this result transmit iam reference range : <1000 NG/ML. Th e reference range was not used to interpret this result as normal/abnormal . URN BARBITURATE (test NEGATIVE See_Comment UNCONF IRMED code = BARBITURN) SCcutoff SCREENING RESULTS SHOULD NOT BE U SED FORNON-MEDICAL PURPOSES. [Automated message] The system which generated this result transmit iam reference range : <200 NG/ML. The reference range was not used to interpret this result as normal/abnormal . URN BENZODIAZEPINE NEGATIVE See_Comment UNCONFIRM ED (test code = SCcutoff SCREENING RESUL TS BENZOURN) SHOULD NOT BE U SED FORNON-MEDICAL PURPOSES. [Automated message] The system which generated this result transmit iam reference range : <200 NG/ML. The reference range was not used to interpret this result as normal/abnormal . URN OPIATES (test NEGATIVE See_Comment UNCONFIRME D code = OPIATURN) SCcutoff SCREENING R ESULTS SHOULD NOT BE U SED FORNON-MEDICAL PURPOSES. [Automated message] The system which generated this result transmit iam reference range : <300 NG/ML. The reference range was not used to interpret this result as normal/abnormal . URN PHENCYCLIDINE NEGATIVE See_Comment UNCONFIRME D (PCP) (test code = SCcutoff SCREENING RESULTS PHENCURN) SHOULD NOT BE U SED FORNON-MEDICAL PURPOSES. [Automated message] The system which generated this result transmit iam reference range : <25 NG/ML. The reference range was not used to interpret this result as normal/abnormal . URN METHADONE (test NEGATIVE See_Comment UNCONFIR MED code = METHAURN) SCcutoff SCREENING R ESULTS SHOULD NOT BE U SED FORNON-MEDICAL PURPOSES. [Automated message] The system which generated this result transmit iam reference range : <300 NG/ML. The reference range was not used to interpret this result as normal/abnormal . Indication for culture: RiskForSepsis-no oth srcSOURCE OF URINE: CLEAN CATCHCBC W/AUTO [id number] 16:23:00 Test Item Value Reference Range Interpretation Comments WHITE BLOOD CELL (test code = 4.8 K/mm3 3.5-11.0 N WBC) RED BLOOD CELL (test code = 4.52 M/mm3 4.70-6.10 L RBC) HEMOGLOBIN (test code = HGB) 13.0 G/DL 10.4-14.9 N HEMATOCRIT (test code = HCT) 41.4 % 31.5-44.1 N MEAN CELL VOLUME (test code = 91.6 Fl 84.5-98.6 N MCV) MEAN CELL HGB (test code = MCH) 28.8 pg 27.0-34.2 N MEAN CELL HGB CONCETRATION 31.4 G/DL 31.5-34.0 L (test code = MCHC) RED CELL DISTRIBUTION WIDTH 13.2 SD 11.5-14.5 N (test code = RDW) PLATELET COUNT (test code = 331 K/mm3 150-450 N PLT) MEAN PLATELET VOLUME (test code 10.00 fL 7.0-10.5 N = MPV) NEUTROPHIL % (test code = NT%) 59.8 % 40-76 N IMMATURE GRANULOCYTE % (test 0.2 % 0.0-5.0 N code = IG%) LYMPHOCYTE % (test code = LY%) 27.3 % 20.5-51.1 N MONOCYTE % (test code = MO%) 10.6 % 1.7-9.3 H EOSINOPHIL % (test code = EO%) 1.7 % 0.0-6.0 N BASOPHIL % (test code = BA%) 0.4 % 0.0-2.0 N NUCLEATED RBC % (test code = 0.0 /100WBC% 0.0-1.0 N NRBC%) NEUTROPHIL # (test code = NT#) 2.9 K/mm3 1.8-7.6 N IMMATURE GRANULOCYTE # (test 0.01 x10 3/uL 0.00-0.03 N code = IG#) LYMPHOCYTE # (test code = LY#) 1.3 K/mm3 0.6-3.2 N MONOCYTE # (test code = MO#) 0.5 K/mm3 0.3-1.1 N EOSINOPHIL # (test code = EO#) 0.1 K/mm3 0.0-0.4 N BASOPHIL # (test code = BA#) 0.0 K/mm3 0.0-0.1 N NUCLEATED RBC # (test code = 0.0 K/mm3 0.0-0.1 N NRBC#) SARS-CoV-2 (COVID-19) RNA [Presence] in Respiratory specimen by VIC with probe [id number] 15:25:22 Test Item Value Reference Range Interpretation Comments SARS-CoV-2 (COVID-19) RNA Not detected Not-Detected [Presence] in Respiratory specimen by VIC with probe detection (test code = 30182-9) TAVIA ESTRELLA
[2023-05-17 19:15] LABS: Specific Gravity < 1.005 (1.005-1.030); Urine Bilirubin NEGATIVE (Negative); Urine Blood Negative (Negative); Urine Clarity Clear (Clear); Urine Color Colorless (Yellow); Urine Glucose NEGATIVE (Negative); Urine Protein NEGATIVE (Negative); Urine Urobilinogen Normal (Normal)
[2023-05-17 19:33] LABS: Barbiturates NEGATIVE (NEGATIVE); Benzodiazepines NEGATIVE (NEGATIVE); Cocaine POSITIVE (NEGATIVE); METHAMPHETAM POSITIVE (NEGATIVE); Opiates NEGATIVE (NEGATIVE); Phencyclidine NEGATIVE (NEGATIVE); THC Cannibis POSITIVE (NEGATIVE)
[2023-05-17 19:39] LABS: Methadone ND (NEGATIVE)
[2023-05-17 19:42] LABS: Absolute Lymphocytes (CBC) 1.6 K/uL (0.7-4.9); Hematocrit 37.7 % (36.0-45.0); Lymphocytes % 41.3 % (15.3-44.8); MCV 92.8 fL (80-100); MPV 8.5 fL (7.6-11.3); Platelets 230 thou/uL (152-406); RBC Red Blood Cell Count 4.06 M/uL (3.86-4.86)
[2023-05-17] MEDS ORDERED: LORazepam 2 MG/ML VIAL ONE (19:46)
[2023-05-17 19:47] LABS: Protime INR 0.99
[2023-05-17 19:59] LABS: ALT/SGPT 19 U/L (13-56); AST/SGOT 12 U/L (15-37); Albumin 3.2 g/dL (3.4-5.0); Alkaline Phosphatase 98 U/L (45-117); BUN Blood Urea Nitrogen 8 mg/dL (7-18); Bicarbonate 25 mEq/L (21-32); Bilirubin Direct < 0.1 mg/dL (0-0.2); Bilirubin Indirect, Calculated ND mg/dL (0.2-0.8); Bilirubin Total 0.3 mg/dL (0.2-1.0); Glomerular Filtration Rate 99 ml/min (=/>90); Glucose Level 89 mg/dL (74-106); Potassium 3.3 mEq/L (3.5-5.1); Protein, Total 6.9 g/dL (6.4-8.2); Sodium Level 139 mEq/L (136-145)
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
[2023-05-17 23:35] VITALS: BP 137/80; TEMP 98.2; O2SAT 97
--- NOTE | 2023-05-18 16:38 | EKG ---
Test Date: 2023-05-17 Test Time: 19:16:22 Pyrotechnician: NATI MEASUREMENT RESULTS: Intervals: Rate: 78 AR: 124 QRSD: 84 QT: 362 QTc: 412 [place]: P: 53 AR: 124 QRS: 69 T: 80 INTERPRETIVE STATEMENTS: Normal sinus rhythm Normal ECG Compared to ECG 05/04/2021 22:53:09 No significant changes Electronically Signed On 05-18-23 16:37:27 CDT by Madhav Tristan
== END 2023-05-17 23:30 ==
LOC: ER 18:27
DX: R45.851 Suicidal ideations (principal); R44.0 Auditory hallucinations; F31.9 Bipolar disorder, unspecified; Z88.8 Allergy status to other drugs, medicaments and biological substances
CPT/HCPCS: 36415; 80048; 80076; 80143; 80179; 80307; 81003; 82077; 85025; 85610; 85730; 93005; 96374; 99285